=== PATIENT | female | born 1940 | race Caucasian/White ===

== ENCOUNTER 2016-09-12 10:26 | Inpatient (IN) | payer MEDICARE, BC ==
[2016-09-12] MEDS ORDERED: Ketorolac INJ* 30 MG/ML 1 ML VIAL IV ONE (11:38)
[2016-09-12] MEDS ORDERED: NS 0.9% 1000 ML* 1,000 ML IV SCH ×2 (11:45→15:00)
[2016-09-12 11:47] LABS: Hematocrit 42 % (35-47); Hemoglobin 14.1 g/dl (12.0-16.0); Mean Corpuscular HGB Conc 34 g/dl (31-36); Mean Corpuscular Hemoglobin 31 pg (27-31); Mean Corpuscular Volume 92 fL (80-97); Mean Platelet Volume 8 um3 (7.4-10.4); Red Blood Count 4.55 10^6/ul (4.0-5.4); Red Cell Distribution Width 14 % (10.5-15); White Blood Count 7.4 10^3/ul (3.5-10.8)
[2016-09-12 11:58] LABS: ALT 7 U/L (7-52); Albumin 4.2 g/dL (3.2-5.2); Alkaline Phosphatase 44 U/L (34-104); Blood Urea Nitrogen 24 mg/dL (6-24); C Reactive Protein 2.53 mg/L (< 5.00); CO2 Carbon Dioxide 24 mmol/L (22-32); Calcium 9.5 mg/dL (8.6-10.3); Chloride 97 mmol/L (101-111); Creatine Kinase 62 U/L (10-223); EGFR African American 49.8 (>60); EGFR Non-African American 38.7 (>60); Globulin 2.9 g/dL (2-4); Glucose 151 mg/dL (70-100); Lipase 24 U/L (11.0-82.0); Sodium 132 mmol/L (133-145); Total Protein 7.1 g/dL (6.4-8.9)
[2016-09-12 12:00] LABS: Troponin I 0.01 ng/mL (<0.04)
[2016-09-12 12:07] LABS: TSH (Thyroid Stimulating Horm) 7.12 mcIU/mL (0.34-5.60)
--- NOTE | 2016-09-12 12:49 | RAD ---
Indication: LEFT hip pain post fall. Preserved range of motion. Comparison: June 15, 2016 Technique: AP pelvis and AP and frog-leg lateral views LEFT hip. Report: Normally located LEFT hip with preserved joint space. No radiographic evidence for LEFT hip or pelvic fracture or pelvic joint diastases. Unremarkable soft tissue contours accounting for body habitus. IMPRESSION: No radiographic evidence for hip fracture. As x-rays may be negative with nondisplaced hip fracture if there is persistent clinical concern MRI or in setting of contraindication to MRI or limitation in emergent access to MRI CT would be suggested.
--- NOTE | 2016-09-12 12:53 | RAD ---
HISTORY: Pain status post trauma, right hand and wrist COMPARISONS: September 12, 2016 VIEWS: 2, Frontal and lateral views of the right hand FINDINGS: BONE DENSITY: There is diffuse osteopenia. BONES: The patient is status post internal fixation of the distal radius. There is no acute displaced fracture or dislocation. JOINTS: There is no arthropathy. ALIGNMENT: There is no dislocation. SOFT TISSUES: Unremarkable. OTHER FINDINGS: None. IMPRESSION: 1. OSTEOPENIA. 2. POST SURGICAL CHANGE. 3. NO ACUTE OSSEOUS INJURY. THE DEGREE OF OSTEOPENIA MAY MAKE A NONDISPLACED FRACTURE RADIOGRAPHICALLY OCCULT. IF SYMPTOMS PERSIST, RECOMMEND REPEAT IMAGING.
--- NOTE | 2016-09-12 13:00 | RAD ---
INDICATION: Wrist injury COMPARISON: Right wrist October 15, 2015 TECHNIQUE: AP and lateral views were obtained. FINDINGS: There is osteopenia with prior open reduction and internal fixation of a distal radial fracture. There are no acute bony findings. There is mild diffuse soft tissue swelling IMPRESSION: POSTOPERATIVE CHANGES. NO ACUTE FINDINGS.
--- NOTE | 2016-09-12 13:57 | RAD ---
HISTORY: Fall COMPARISONS: June 15, 2016 TECHNIQUE: Multiple contiguous axial CT scans were obtained of the head without intravenous contrast. FINDINGS: HEMORRHAGE/INFARCT: There is no hemorrhage or acute infarct. MASSES/SHIFT: There is no mass or shift. EXTRA-AXIAL SPACES: There are no extra-axial fluid collections. SULCI AND VENTRICLES: The sulci and ventricles are normal in size and position for the patient's stated age. CEREBRUM: There are no focal parenchymal abnormalities. BRAINSTEM: There are no focal parenchymal abnormalities. CEREBELLUM: There are no focal parenchymal abnormalities. VESSELS: The vessels are grossly normal. PARANASAL SINUSES: The paranasal sinuses are clear. ORBITS: The orbits are unremarkable. BONES AND SOFT TISSUE: No bone or soft tissue abnormalities are noted. OTHER: None IMPRESSION: NO ACUTE INTRACRANIAL PATHOLOGY.
--- NOTE | 2016-09-12 13:59 | RAD ---
HISTORY: Fall COMPARISONS: None TECHNIQUE: Multiple contiguous axial CT scans were obtained of the cervical spine without intravenous contrast, with coronal and sagittal multiplanar reformations. FINDINGS: BRAIN: The visualized brain is unremarkable CENTRAL CANAL: Evaluation of the central canal is limited on CT technique; however, there is no obvious canalicular mass or epidural hemorrhage. ALIGNMENT: The alignment is normal, without subluxation or dislocation. VERTEBRAL BODIES: The odontoid process is intact. The atlantoaxial intervals are symmetric. The vertebral bodies are normal in attenuation, without fracture. There is diffuse osteopenia. JOINTS: There is fusion across the facet joints of C2-C3. There is mild facet osteoarthritis. MUSCULATURE: Unremarkable INTERVERTEBRAL DISCS: There is diffuse loss of intervertebral disc height. AXIAL IMAGES: C2-C3: There is no osseous neural foraminal narrowing or central canal stenosis. C3-C4: There is no osseous neural foraminal narrowing or central canal stenosis. C4-C5: There is no osseous neural foraminal narrowing or central canal stenosis. C5-C6: There is no osseous neural foraminal narrowing or central canal stenosis. C6-C7: There is no osseous neural foraminal narrowing or central canal stenosis. C7-T1: There is no osseous neural foraminal narrowing or central canal stenosis. SOFT TISSUES: The visualized soft tissues of the neck are unremarkable. The prevertebral fat stripe is preserved. OTHER: None. IMPRESSION: 1. OSTEOPENIA. 2. MILD DEGENERATIVE CHANGES. 3. NO ACUTE OSSEOUS INJURY TO THE CERVICAL SPINE
[2016-09-12 14:10] LABS: Magnesium 1.8 mg/dL (1.9-2.7)
--- NOTE | 2016-09-12 14:10 | RAD ---
INDICATION: Trauma. COMPARISON: Comparison is made with a prior chest x-ray study from June 15, 2016. TECHNIQUE: A CT scan of the chest was performed without intravenous contrast. Contiguous axial sections were obtained from the lung apices through the lung bases. Images were reconstructed in the coronal and sagittal planes. FINDINGS: There is mild dependent bilateral lower lobe subsegmental atelectasis. No pleural effusion or pneumothorax is seen. There is no mediastinal hemorrhage. No significant enlargement of central or hilar lymph nodes are seen. The heart is within normal limits in size. No pericardial effusion is present. The thoracic aorta is normal in caliber. There is mild to moderate calcific plaque present. There is a slightly impacted fracture of the anterior cortex of the body of the sternum. No adjacent soft tissue swelling is seen and this would be age indeterminate. No other fractures are seen. The patient is status post right shoulder arthroplasty. IMPRESSION: FRACTURE OF THE BODY OF THE STERNUM, AGE INDETERMINATE. RECOMMEND CLINICAL CORRELATION.
[2016-09-12] MEDS ORDERED: Ondansetron INJ* 2 MG/ML VIAL IV PRN (14:48)
[2016-09-12] MEDS ORDERED: traMADol TAB* 50 MG PO PRN (14:49)
[2016-09-12] MEDS ORDERED: Magnesium Sulfate 2 GM IV* 2 GM/50 ML BAG IVPB ONE (15:02)
[2016-09-12] MEDS ORDERED: Potassium Chlor TAB* 20 MEQ TAB.ER PO ONE (15:02)
[2016-09-12] MEDS: Carbidopa/Levodop 25/100 MG TAB(*) PO SCH ×3 (15:10→20:04)
[2016-09-12 15:39] LABS: T4 8.53 g/dL (6.09-12.23)
[2016-09-12 15:44] LABS: Free T4 0.95 ng/dL (0.61-1.12)
[2016-09-12 15:48] LABS: Urine Bacteria 1+ (Absent); Urine Bilirubin Negative (Negative); Urine Glucose Negative (Negative); Urine Nitrite Negative (Negative)
[2016-09-12 15:49] LABS: Total T3 0.93 ng/mL (0.87-1.78)
--- NOTE | 2016-09-12 16:02 | ED ---
Maci Kohler Anna, scribed for Rainer Stanley MD on 09/12/16 at 1109 . Adult Trauma - HPI Summary HPI Summary: Patient is a 76 y/o female coming to [facility] after a fall that occurred this morning. She got up following a BM and felt like she would pass out. She fell down and might have hit her chest on the walker. She hit her right hand on a knob of the counter. She had a momentary LOC. She did not feel palpitations, CP , SOB before the syncope. She currently feels CP and right hand pain. She has some hip pain. She feels bloated, which is at baseline for her. She has some difficulty lifting her feet. Per triage notes, the patient describes the severity of the symptoms as 4/10. She has been taking medication for her BM. She previous had melena but her BM have been normally-colored the last few days. She took two Tylenol this morning. Hx significant for Parkinsons disease. - History of Current Complaint Chief Complaint: EDSyncope Stated Complaint: FALL Time Seen by Provider: 09/12/16 10:32 Hx Obtained From: Patient, Family/Mapping Editor - accompanied by , who witnessed fall Loss of Consciousness: brief (seconds) Pain Intensity: 4 Pain Scale Used: 0-10 Numeric - Allergy/Home Medications Allergies/Adverse Reactions: Allergies Allergy/AdvReac Type Severity Reaction Status Date / Time Ciprofloxacin [From Cipro] Allergy Intermediate RASH/HIVES Verified 02/10/16 13: 38 Erythromycin Allergy Intermediate GI Upset Verified 02/10/16 13:38 Povidone Iodine Allergy Intermediate Rash Verified 02/10/16 13:38 [From Betadine] Rabeprazole [From Aciphex] Allergy Intermediate MIGRAINE Verified 02/10/16 13:38 Acetaminophen [From Vicodin] Allergy Mild Rash Verified 02/10/16 13:38 Doxycycline Allergy Mild Rash Verified 02/10/16 13:38 Hydrocodone [From Vicodin] Allergy Mild Rash Verified 02/10/16 13:38 Iodinated Contrast Media Allergy Mild Hives Verified 02/10/16 13:38 [CONTRAST DYE] Lansoprazole [From Prevacid] Allergy Mild SKIN Verified 02/10/16 13:38 IRRITATION Levofloxacin [From Levaquin] Allergy Mild Rash Verified 02/10/16 13:38 Rofecoxib [From Vioxx] Allergy Mild SKIN Verified 02/10/16 13:38 IRRITATION Sulfa Drugs Allergy Unknown Unknown Verified 02/10/16 13:38 Reaction Details Loracarbef Allergy See Comment Verified 09/12/16 15:18 PMH/Surg Hx/FS Hx/Imm Hx Endocrine/Hematology History: Reports: Hx Anticoagulant Therapy Denies: Hx Diabetes Cardiovascular History: Reports: Hx Hypertension Denies: Hx Pacemaker/ICD Respiratory History: Denies: Hx Asthma, Hx Chronic Obstructive Pulmonary Disease (COPD) GI History: Reports: Hx Irritable Bowel - Hx Chronic Diarrhea Musculoskeletal History: Reports: Hx Back Problems, Hx Orthopedic Injury, Other Musculoskeletal History - R Shoulder Repair Denies: Hx Rheumatoid Arthritis, Hx Osteoporosis Sensory History: Denies: Hx Hearing Aid Neurological History: Reports: Hx Headaches, Other Neuro Impairments/Disorders - Parkinson's Disease Psychiatric History: Denies: Hx Panic Disorder - Cancer History Hx Chemotherapy: No Hx Radiation Therapy: No - Surgical History Surgery Procedure, Year, and Place: rt shoulder prosthesis-2008, RT AND LT BREAST BX, HYSTERECTOMY, [place], RT [place] [facility] ORTHOPLASTY SHOULDER, SHOULDER MANIPULATION,ORIF RT WRIST WITH PLATING Infectious Disease History: Denies: Traveled Outside the [place] in Last 30 Days - Family History Known Family History: Positive: Hypertension - Social History Occupation: Retired Lives: With Family Alcohol Use: None Hx Substance Use: Yes Substance Use Type: Reports: None, Prescribed Hx Tobacco Use: No Smoking Status (MU): Never Smoked Tobacco Review of Systems Positive: Chest Pain Positive: Other - Bloated, baseline Positive: other - melena, resolved Positive: Arthralgia Positive: Syncope All Other Systems Reviewed And Are Negative: Yes Physical Exam Triage Information Reviewed: Yes Vital Signs On Initial Exam: Initial Vitals Temp Pulse Resp BP Pulse Ox 96.7 F 84 18 140/83 99 09/12/16 10:27 09/12/16 10:27 09/12/16 10:27 09/12/16 10:27 09/12/16 10:27 Vital Signs Reviewed: Yes Appearance: Positive: Well-Appearing, No Pain Distress Skin: Positive: Warm, Skin Color Reflects Adequate Perfusion, Dry, Other - Ecchymosison R upper sternal area Head/Face: Positive: Normal Head/Face Inspection Eyes: Positive: EOMI, GABY ENT: Positive: Normal ENT inspection Neck: Positive: Supple, Nontender Respiratory/Lung Sounds: Positive: Clear to Auscultation, Breath Sounds Present Cardiovascular: Positive: RRR Abdomen Description: Positive: Nontender, Soft Bowel Sounds: Positive: Present Musculoskeletal: Positive: Pain @ - R Hand bandaged, tender in wrist and hand, Other - Good ROM right leg. Left leg slightly decreased ROM. Neurological: Positive: Alert, Oriented to Person Place, Time, Other - slow speech, slow movement of arms and legs Psychiatric: Positive: Affect/Mood Appropriate Diagnostics - Vital Signs Vital Signs Temp Pulse Resp BP Pulse Ox 09/12/16 10:48 96.7 F 83 18 121/78 98 09/12/16 10:41 83 18 150/82 99 09/12/16 10:27 96.7 F 84 18 140/83 99 - Laboratory Lab Results: Lab Results 09/12/16 09/12/16 09/12/16 Range/Units 10:35 10:35 10:35 WBC 7.4 (3.5-10.8) 10^3/ul RBC 4.55 (4.0-5.4) 10^6/ul Hgb 14.1 (12.0-16.0) g/dl Hct 42 (35-47) % MCV 92 (80-97) fL MCH 31 (27-31) pg MCHC 34 (31-36) g/dl RDW 14 (10.5-15) % Plt Count 161 (150-450) 10^3/ul MPV 8 (7.4-10.4) um3 Neut % (Auto) 76.4 (38-83) % Lymph % (Auto) 16.0 L (25-47) % [place] % (Auto) 5.6 (1-9) % Eos % (Auto) 1.4 (0-6) % Baso % (Auto) 0.6 (0-2) % Absolute Neuts (auto) 5.6 (1.5-7.7) 10^3/ul Absolute Lymphs (auto) 1.2 (1.0-4.8) 10^3/ul Absolute Monos (auto) 0.4 (0-0.8) 10^3/ul Absolute Eos (auto) 0.1 (0-0.6) 10^3/ul Absolute Basos (auto) 0 (0-0.2) 10^3/ul Absolute Nucleated RBC 0 10^3/ul Nucleated RBC % 0 INR (Anticoag Therapy) 0.90 (0.89-1.11) APTT 26.1 (26.0-36.3) seconds Sodium 132 L (133-145) mmol/L Potassium TNP Chloride 97 L (101-111) mmol/L Carbon Dioxide 24 (22-32) mmol/L Anion Gap TNP BUN 24 (6-24) mg/dL Creatinine 1.33 H (0.51-0.95) mg/dL Est GFR ( Amer) 49.8 (>60) Est GFR (Non-Af Amer) 38.7 (>60) BUN/Creatinine Ratio 18.0 (8-20) Glucose 151 H (70-100) mg/dL Lactic Acid (0.5-2.0) mmol/L Calcium 9.5 (8.6-10.3) mg/dL Magnesium TNP Total Bilirubin 0.90 (0.2-1.0) mg/dL AST TNP ALT 7 (7-52) U/L Alkaline Phosphatase 44 (34-104) U/L Total Creatine Kinase 62 (10-223) U/L CK-MB (CK-2) 2.4 (0.6-6.3) ng/mL Troponin I 0.01 (<0.04) ng/mL C-Reactive Protein 2.53 (< 5.00) mg/L B-Natriuretic Peptide ( - 100) pg/mL Total Protein 7.1 (6.4-8.9) g/dL Albumin 4.2 (3.2-5.2) g/dL Globulin 2.9 (2-4) g/dL Albumin/Globulin Ratio 1.4 (1-3) Lipase 24 (11.0-82.0) U/L TSH 7.12 H (0.34-5.60) mcIU/mL Free T4 0.95 (0.61-1.12) ng/dL Thyroxine (T4) 8.53 (6.09-12.23) g/dL Free T3 3.10 (2.5-3.9) pg/mL Total T3 0.93 (0.87-1.78) ng/mL 09/12/16 09/12/16 09/12/16 Range/Units 10:35 10:35 13:48 WBC (3.5-10.8) 10^3/ul RBC (4.0-5.4) 10^6/ul Hgb (12.0-16.0) g/dl Hct (35-47) % MCV (80-97) fL MCH (27-31) pg MCHC (31-36) g/dl RDW (10.5-15) % Plt Count (150-450) 10^3/ul MPV (7.4-10.4) um3 Neut % (Auto) (38-83) % Lymph % (Auto) (25-47) % [place] % (Auto) (1-9) % Eos % (Auto) (0-6) % Baso % (Auto) (0-2) % Absolute Neuts (auto) (1.5-7.7) 10^3/ul Absolute Lymphs (auto) (1.0-4.8) 10^3/ul Absolute Monos (auto) (0-0.8) 10^3/ul Absolute Eos (auto) (0-0.6) 10^3/ul Absolute Basos (auto) (0-0.2) 10^3/ul Absolute Nucleated RBC 10^3/ul Nucleated RBC % INR (Anticoag Therapy) (0.89-1.11) APTT (26.0-36.3) seconds Sodium (133-145) mmol/L Potassium 3.0 L Chloride (101-111) mmol/L Carbon Dioxide (22-32) mmol/L Anion Gap BUN (6-24) mg/dL Creatinine (0.51-0.95) mg/dL Est GFR ( Amer) (>60) Est GFR (Non-Af Amer) (>60) BUN/Creatinine Ratio (8-20) Glucose (70-100) mg/dL Lactic Acid 3.6 H* (0.5-2.0) mmol/L Calcium (8.6-10.3) mg/dL Magnesium 1.8 L Total Bilirubin (0.2-1.0) mg/dL AST 16 ALT (7-52) U/L Alkaline Phosphatase (34-104) U/L Total Creatine Kinase (10-223) U/L CK-MB (CK-2) (0.6-6.3) ng/mL Troponin I (<0.04) ng/mL C-Reactive Protein (< 5.00) mg/L B-Natriuretic Peptide 40 ( - 100) pg/mL Total Protein (6.4-8.9) g/dL Albumin (3.2-5.2) g/dL Globulin (2-4) g/dL Albumin/Globulin Ratio (1-3) Lipase (11.0-82.0) U/L TSH (0.34-5.60) mcIU/mL Free T4 (0.61-1.12) ng/dL Thyroxine (T4) (6.09-12.23) g/dL Free T3 (2.5-3.9) pg/mL Total T3 (0.87-1.78) ng/mL Result Diagrams: 09/12/16 10:35 09/12/16 13:48 Lab Statement: Any lab studies that have been ordered have been reviewed, and results considered in the medical decision making process. - Radiology Wrist XR Xray Interpretation: No Acute Changes Radiology Interpretation Completed By: Radiologist - IMPRESSION: POSTOPERATIVE CHANGES. NO ACUTE FINDINGS. Hip/Pelvis XR Xray Interpretation: No Acute Changes Radiology Interpretation Completed By: Radiologist - IMPRESSION: No radiographic evidence for hip fracture. As x-rays may be negative with nondisplaced hip fracture if there is persistent clinical concern MRI or in setting of contraindication to MRI or limitation in emergent access to MRI CT would be suggested. Hand XR Xray Interpretation: No Acute Changes Radiology Interpretation Completed By: Radiologist - IMPRESSION: 1. OSTEOPENIA. 2. POST SURGICAL CHANGE. 3. NO ACUTE OSSEOUS INJURY. THE DEGREE OF OSTEOPENIA MAY MAKE A NONDISPLACED FRACTURE RADIOGRAPHICALLY OCCULT. IF SYMPTOMS PERSIST, RECOMMEND REPEAT IMAGING. - CT Brain CT CT Interpretation: No Acute Changes CT Interpretation Completed By: Radiologist C-Spine CT CT Interpretation: No Acute Changes CT Interpretation Completed By: Radiologist - IMPRESSION: 1. OSTEOPENIA. 2. MILD DEGENERATIVE CHANGES. 3. NO ACUTE OSSEOUS INJURY TO THE CERVICAL SPINE Chest CT CT Interpretation: Positive (See Comments) CT Interpretation Completed By: Radiologist - IMPRESSION: FRACTURE OF THE BODY OF THE STERNUM, AGE INDETERMINATE. RECOMMEND CLINICAL CORRELATION. - EKG 1049 Cardiac Rate: NL - [address] Segment: Normal Ectopy: None Adult Trauma Course/Dx - Course Assessment/Plan: DISCUSSED RESULTS WITH PATIENT/FAMILY. ADMIT HOSPITALIST STABLE. - Diagnoses Provider Diagnoses: SYNCOPE, Sternal fracture - Physician Notifications Discussed Care Of Patient With: Dr. Guardado (hospitalist) at 13:37. Agrees to admit patient. Discharge - Discharge Plan Condition: Guarded Disposition: ADMITTED TO [facility] documentation as recorded by the Maci norton Anna accurately reflects the service I personally performed and the decisions made by me, Rainer Stanley MD.
--- NOTE | 2016-09-12 18:21 | HP ---
HISTORY AND PHYSICAL: DATE OF ADMISSION: 09/12/16 PRIMARY CARE PROVIDER: Dr. Parra. ATTENDING PHYSICIAN WHILE IN THE HOSPITAL: Dr. Sandy Guardado *(report dictated by Mike Bonilla NP). CHIEF COMPLAINT: 1. Syncope. 2. Fall. HISTORY OF PRESENTING ILLNESS: Ms. Omer is a 76-year-old female patient. She has a history of Parkinson's, hypothyroidism, hyperlipidemia, and arthritis. She comes in to the ER today stating that she was recently dealing with bouts of constipation. She was started on a laxative. She is unaware of the name of it. She started having bowel movements and then actually started having almost liquid bowel movement. She stopped the constipation medication. Her bowel movements were becoming more regular. She was sitting on the commode today. She had a bowel movement. She needed to be wiped up by her as she had difficulty doing this with her Parkinson's. As she was standing, after having bowel movement, she noticed she started becoming lightheaded, feeling she was going to pass out. The next thing she knew, she woke up and she was on the bathroom floor. She denies any chest pain prior, but she does admit to having some pain in her chest afterwards. She states it gets worse when she takes a breath and describes it as a sharp, stabbing pain. She denies having any shortness of breath. She denied any recent change in medication with the exception that she has been on a new constipation medication. She denies having any fevers or chills. She states she has passed out once before in the past. Her was concerned and she is unaware how long she was on the ground for, but there was concern because of the syncope and the patient was sent to the ER via EMS and we were asked to evaluate for admission. PAST MEDICAL HISTORY: Significant for: 1. Parkinson's. 2. Hypothyroidism. 3. Arthritis. 4. Hyperlipidemia. PAST SURGICAL HISTORY: 1. The patient has had shoulder surgery. 2. Hysterectomy. 3. Cholecystectomy. 4. Breast biopsies. HOME MEDICATIONS: Include: 1. Tramadol 50 mg every 4 to 6 hours as needed. 2. Zantac 150 mg p.o. twice a day. 3. Systane eye drops, 1 drop both eyes t.i.d. as needed. 4. Nystatin cream 1 application topically b.i.d. 5. Lozol 2.5 mg p.o. daily. 6. Hydrocortisone 1 application topically b.i.d. 7. Glycerin suppository, 1 suppository every 12 hours as needed. 8. Colace 100 mg daily. 9. Cranberry 500 mg p.o. daily with meals. 10. Cod liver oil 1 capsule p.o. daily. 11. Carbidopa/levodopa 2 tablets in the morning. 12. Carbidopa/levodopa 1-1/2 tablets at noon, 1600, and 2000. 13. Calcium carbonate 1 tablet p.o. daily. 14. Betamethasone 1 application topically b.i.d. as needed. 15. Tylenol 650 mg p.o. every 4 hours as needed. ALLERGIES TO MEDICATIONS: Include CIPROFLOXACIN, ERYTHROMYCIN, IODINE, ACIPHEX , VICODIN, DOXYCYCLINE, IV DYE, PREVACID, LEVAQUIN, VIOXX, SULFA DRUGS, and LORABID. FAMILY HISTORY: Reviewed and noncontributory. SOCIAL HISTORY: She does not smoke. She does not drink. She lives with her . Surrogate decision maker is her , Layo. REVIEW OF SYSTEMS: There is no documented fever. She denied having any significant weight change. There was no double vision. There is no ear discharge. There is no rhinorrhea. No sore throat. No thyroid enlargement. She denied having any chest pain. There is no orthopnea, no nocturnal dyspnea. There is no abdominal pain. No nausea, no vomiting. No dysuria, no frequency. There was loss of consciousness. No pruritus, no skin ulcerations. Review of 14 systems completed, all others negative. PHYSICAL EXAMINATION GENERAL: At this time, Ms. Omer is a 76-year-old female patient. She appears well nourished, well developed. She does not appear to be in any acute distress. She is sitting in the ER stretcher. VITAL SIGNS: Blood pressure 140/66 with a pulse of 83, respirations 18, O2 sat 96%, and temperature of 96.7. HEENT: Head: Atraumatic and normocephalic. Eyes: EOMs are intact. Sclerae are anicteric and not pale. Throat: Oral mucosa appears to be moist. No oropharyngeal erythema. NECK: Supple. LUNGS: Clear to auscultation bilaterally. No wheezes, rales, or rhonchi. HEART: Sounds S1, S2. Regular rate and rhythm. No murmurs, rubs, or gallops. ABDOMEN: Soft, flat, and nontender. Bowel sounds present. EXTREMITIES: Pulses 2+ throughout. She does have rigidity in the lower extremities. She is able to move the 4 extremities. She has weakness in the lower extremities bilaterally. No peripheral edema. NEUROLOGIC: She is awake, alert, and oriented x3. No gross focal deficits. SKIN: Intact. She does have a rather large skin tear to the right hand which is covered with a Telfa dressing. May have Dr. Stanley look at it to see if it could be sutured, but may not be because her skin is fairly frail and the sutures may not hold. DIAGNOSTIC STUDIES/LAB DATA: Today revealed a WBC of 7.4, RBC of 4.55, hemoglobin 14.1, hematocrit of 42, platelet count of 151. INR was 0.90, PTT of 26.1. Sodium was 132, potassium 3.0, chloride of 97, bicarb 24, glucose is 151 , lactate 3.6, calcium 9.5, mag 1.8. Total bili 0.9, AST 16, ALT 7, alk phos 44. CK 52, CK-MB 2.4. Troponin 0.01. TSH 7.12. Lipase 24. Albumin of 4.2. BNP of 40. Urine is pending. She had multiple imaging in the ER. She had a CT of the brain which showed no acute intracranial pathology. She had a hand, right, 2 views, which showed osteopenia and postsurgical change. No acute osseous injury. Osteopenia may make a nondisplaced fracture radiographically occult. If symptoms persist, recommend repeat imaging. CT cervical spine showed osteopenia, mild degenerative changes. No acute osseous injury of the cervical spine. She had a chest CT which showed fracture of the body of the sternum, age indeterminate. Recommend clinical correlation. She had a hip pelvis x-ray which showed no radiographic evidence for hip fracture. X-rays may be negative with nondisplaced fracture. If symptoms persist, then consider MRI in the setting of MRI or limitation, in emergent process, CT will be suggested. Wrist x-ray showed postoperative change, no acute findings. Old medical records were reviewed. She also had an EKG obtained today which showed no obvious ST elevation or T- wave inversions. Difficult exam because she has multiple artifacts with rate of 81 and was a sinus rhythm. Old medical records were reviewed. ASSESSMENT AND PLAN: Ms. Omer is a 76-year-old female coming in to the ER today with complaints of syncopal episode. Hospitalist service was asked to evaluate in admission. She will be admitted under observation status for: 1. Syncope: I suspect the reason she syncopized at this point is probably because of vasovagal and orthostasis. She is on a medication, Lozol, which I am going to hold as is a mild diuretic. We will hydrate her. We will check orthostatic blood pressures. We will get an echo. We will place her on telemetry and we will continue to follow. 2. Parkinson's: Continue meds as prescribed. 3. Hypothyroidism: Her TSH was slightly high. I will add on a T3 and T4. May need to consider adding back small dose of Synthroid, but this can be followed with her primary. 4. Arthritis: Continue supportive care. 5. Hyperlipidemia: She can follow with her primary. 6. DVT prophylaxis: We will go ahead and place her on heparin subcu. 7. Code status: Full code. 8. Fluids, electrolytes, and nutrition: She can have a regular diet. 9. Falls: We will go ahead and get a PT consult which has been ordered. 10. Hypomagnesemia: We will go ahead and replace this. 11. Hypokalemia: We will go ahead and replace this. 12. Lactic acidosis: The etiology is unclear. I will repeat this after hydration. I do not believe she had a seizure. I do not think she is actively infected either. We will monitor for any fevers. TIME SPENT: On the admission was 30 minutes; greater than half the time was spent [id number] with the patient obtaining my history and physical, other half the time spent going over the plan of care with the patient and implementing plan of care. I did discuss the plan of care with my attending, Dr. Guardado; she is in agreement. MIKE BONILLA NP CC: Dr. Parra* [id number]/[facility] #: [id number] [facility]
[2016-09-12] MEDS: Neomycin/Polym/Bacit TOP OINT* 15 GM TOPICAL SCH (21:11)
[2016-09-12] MEDS: Nystatin CREAM* 15 GM TUBE TOPICAL SCH (21:14)
[2016-09-12] MEDS: Heparin VIAL(*) 5000 UNITS/ML VIAL (FIVE THOUSAND) SUBCUT SCH (21:19)
[2016-09-13] MEDS: Heparin VIAL(*) 5000 UNITS/ML VIAL (FIVE THOUSAND) SUBCUT SCH ×3 (05:07→21:17)
[2016-09-13 05:31] LABS: Hematocrit 35 % (35-47); Mean Corpuscular HGB Conc 35 g/dl (31-36); Mean Corpuscular Hemoglobin 32 pg (27-31); Mean Corpuscular Volume 92 fL (80-97); Mean Platelet Volume 8 um3 (7.4-10.4); Red Blood Count 3.77 10^6/ul (4.0-5.4); Red Cell Distribution Width 14 % (10.5-15); White Blood Count 6.9 10^3/ul (3.5-10.8)
[2016-09-13 05:47] LABS: BUN/Creatinine Ratio 18.9 (8-20); Calcium 8.6 mg/dL (8.6-10.3); EGFR African American 61.3 (>60); EGFR Non-African American 47.7 (>60)
[2016-09-13] MEDS: Famotidine TAB* 20 MG PO SCH (08:58)
[2016-09-13] MEDS: Carbidopa/Levodop 25/100 MG TAB(*) PO SCH ×4 (08:58→19:28)
[2016-09-13] MEDS: Neomycin/Polym/Bacit TOP OINT* 15 GM TOPICAL SCH ×3 (12:22→19:42)
[2016-09-13] MEDS: Nystatin CREAM* 15 GM TUBE TOPICAL SCH ×2 (12:31→19:42)
[2016-09-13] MEDS ORDERED: Simethicone TAB* 80 MG TAB.CHEW PO PRN (12:31)
[2016-09-13] MEDS: Acetaminophen TAB* 325 MG PO PRN (12:31)
[2016-09-13] MEDS: Potassium Chlor TAB* 20 MEQ TAB.ER PO SCH ×2 (12:31→13:40)
--- NOTE | 2016-09-13 15:11 | PN ---
Subjective Date of Service: 09/13/16 Interval History: Patient seen this morning. Says she continues to have chest pain, worse with movement and inspiration. Feels to weak to go home. No further episodes of dizziness. Family History: Unchanged from Admission Social History: Unchanged from Admission Past Medical History: Unchanged from Admission Objective Active Medications: Acetaminophen (Tylenol Tab*) 650 mg PO Q4H PRN Carbidopa/Levodopa (Sinemet 25/100 Tab(*)) 1.5 tab PO 1200,1600,2000 GILMAR Carbidopa/Levodopa (Sinemet 25/100 Tab(*)) 2 tab PO 0800 [facility] Famotidine (Pepcid Tab*) 20 mg PO DAILY G[facility]MAR Heparin Sodium (Porcine) (Heparin Vial(*)) 5,000 units SUBCUT Q8HR G[facility] Ibuprofen (Motrin Tab*) 600 mg PO Q6H PRN Neomycin/Polymyxin/Bacitracin (Neosporin Top Oint Tube*) 1 applic TOPICAL BID GILMAR Nystatin (Nystatin Cream*) 1 applic TOPICAL BID GILMAR Ondansetron HCl (Zofran Inj*) 4 mg IV Q6H PRN Simethicone (Mylicon*) 80 mg PO Q6H PRN Vital Signs 09/12/16 09/12/16 09/12/16 15:27 16:14 19:40 Temperature 97.2 F 97.7 F Pulse Rate 96 91 Respiratory 16 16 16 Rate Blood Pressure 159/52 124/51 (mmHg) O2 Sat by Pulse 98 100 Oximetry 09/12/16 09/12/16 09/12/16 20:04 20:06 22:04 Temperature Pulse Rate 99 106 Respiratory 18 16 Rate Blood Pressure 127/56 95/72 (mmHg) O2 Sat by Pulse 99 98 Oximetry 09/13/16 09/13/16 07:58 11:03 Temperature 98.3 F 98.6 F Pulse Rate 82 80 Respiratory 16 16 Rate Blood Pressure 138/62 126/53 (mmHg) O2 Sat by Pulse 94 94 Oximetry Oxygen Devices in Use Now: None Appearance: Elderly, F, laying in bed in NAD Eyes: No Scleral Icterus Ears/Nose/Mouth/Throat: Mucous Membranes Moist Neck: NL Appearance and Movements; NL JVP Respiratory: Symmetrical Chest Expansion and Respiratory Effort, Clear to Auscultation Cardiovascular: NL Sounds; No Murmurs; No JVD, RRR, - - sternum TTP Abdominal: NL Sounds; No Tenderness; No Distention Lymphatic: No Cervical Adenopathy Extremities: - - Mild LE edema B/L Skin: No Rash or Ulcers Neurological: Alert and Oriented x 3, - - tremor noted Result Diagrams: 09/13/16 05:20 09/13/16 05:20 Additional Lab and Data: Assess/Plan/Problems-Billing Assessment: Syncope likely due to diarrhea/dehydration, orthostatic hypotension in a 76 yo F with hx of Parkinson's, hypothyroidism, arthritis, HLD - Patient Problems (1) Syncope Current Visit: Yes Comment: 2/2 diarrhea/dehydration from laxatives. Had positive orthostatics here. Labs improved with IVF. No events on tele (2) Weakness Current Visit: Yes Comment: pain due to sternal fracture (age indeterminate), may have been from previous fall. Will continue tylenol and ibuprofen. Patient thinks she had bad reaction to tramadol so have discontinued this. (3) Hypothyroid Current Visit: No Comment: Mildly elevated TSH, normal FT4. Not on home synthroid. Can repeat labs as outpatient. (4) Parkinson disease Current Visit: No Comment: Continue home Sinemet (5) DVT prophylaxis Current Visit: Yes Comment: HSQ Status and Disposition: Inpatient due to persistent weakness.
[2016-09-13] MEDS: Ibuprofen TAB* 600 MG PO PRN (16:32)
[2016-09-14] MEDS: Heparin VIAL(*) 5000 UNITS/ML VIAL (FIVE THOUSAND) SUBCUT SCH ×3 (05:14→23:06)
[2016-09-14 06:34] LABS: BUN/Creatinine Ratio 19.4 (8-20); Calcium 8.9 mg/dL (8.6-10.3); EGFR African American 63.3 (>60); EGFR Non-African American 49.2 (>60); Potassium 3.9 mmol/L (3.5-5.0)
[2016-09-14] MEDS: Carbidopa/Levodop 25/100 MG TAB(*) PO SCH ×4 (09:03→21:06)
[2016-09-14] MEDS: Famotidine TAB* 20 MG PO SCH (09:03)
[2016-09-14] MEDS: Nystatin CREAM* 15 GM TUBE TOPICAL SCH ×2 (10:18→21:30)
[2016-09-14] MEDS: Neomycin/Polym/Bacit TOP OINT* 15 GM TOPICAL SCH ×2 (10:19→23:26)
[2016-09-14] MEDS: Ibuprofen TAB* 600 MG PO PRN (10:19)
[2016-09-14] MEDS: Acetaminophen TAB* 325 MG PO PRN (12:29)
--- NOTE | 2016-09-14 12:31 | PN ---
Subjective Date of Service: 09/14/16 Interval History: Patient seen this afternoon. Reports continued chest pain with movement, ibuprofen has been somewhat helpful. Anxious when she walks that she will fall again. Required 2 assist and gait belts to get to the bathroom. No dizziness when walking. Discussed possibility of JESÚS which the patient was no happy about. Family History: Unchanged from Admission Social History: Unchanged from Admission Past Medical History: Unchanged from Admission Objective Active Medications: Acetaminophen (Tylenol Tab*) 650 mg PO Q4H PRN Carbidopa/Levodopa (Sinemet 25/100 Tab(*)) 1.5 tab PO 1200,1600,2000 GILMAR Carbidopa/Levodopa (Sinemet 25/100 Tab(*)) 2 tab PO 0800 [facility]IL[facility] Famotidine (Pepcid Tab*) 20 mg PO DAILY GILMAR Heparin Sodium (Porcine) (Heparin Vial(*)) 5,000 units SUBCUT Q8HR GILMAR Ibuprofen (Motrin Tab*) 600 mg PO Q6H PRN Neomycin/Polymyxin/Bacitracin (Neosporin Top Oint Tube*) 1 applic TOPICAL BID GILMAR Nystatin (Nystatin Cream*) 1 applic TOPICAL BID GILMAR Ondansetron HCl (Zofran Inj*) 4 mg IV Q6H PRN Simethicone (Mylicon*) 80 mg PO Q6H PRN Vital Signs 09/13/16 09/13/16 09/13/16 15:09 15:54 18:32 Temperature 98.1 F Pulse Rate 80 Respiratory 18 18 18 Rate Blood Pressure 121/50 (mmHg) O2 Sat by Pulse 97 Oximetry 09/13/16 09/13/16 09/14/16 19:36 23:47 04:14 Temperature 98.3 F 97.8 F 97.9 F Pulse Rate 82 85 80 Respiratory 18 20 20 Rate Blood Pressure 145/54 150/59 144/74 (mmHg) O2 Sat by Pulse 96 94 94 Oximetry 09/14/16 09/14/16 09/14/16 07:16 07:32 10:56 Temperature 97.6 F Pulse Rate 80 93 Respiratory 18 16 Rate Blood Pressure 176/75 130/54 (mmHg) O2 Sat by Pulse 100 Oximetry Oxygen Devices in Use Now: None Appearance: Elderly, F, sitting in chair in NAD Eyes: No Scleral Icterus Ears/Nose/Mouth/Throat: Mucous Membranes Moist Neck: NL Appearance and Movements; NL JVP Respiratory: Symmetrical Chest Expansion and Respiratory Effort, Clear to Auscultation Cardiovascular: NL Sounds; No Murmurs; No JVD, RRR Abdominal: NL Sounds; No Tenderness; No Distention Lymphatic: No Cervical Adenopathy Extremities: No Edema Skin: No Rash or Ulcers Neurological: Alert and Oriented x 3, - - mild tremor Result Diagrams: 09/13/16 05:20 09/14/16 05:09 Additional Lab and Data: Microbiology and Other Data: Microbiology 09/12/16 15:30 Urine Culture - Final Urine Assess/Plan/Problems-Billing Assessment: Syncope likely due to diarrhea/dehydration, orthostatic hypotension in a 76 yo F with hx of Parkinson's, hypothyroidism, arthritis, HLD - Patient Problems (1) Syncope Current Visit: Yes Comment: 2/2 diarrhea/dehydration from laxatives. Had positive orthostatics here. Labs improved with IVF. No events on tele. Now off IVF. (2) Weakness Current Visit: Yes Comment: pain due to sternal fracture (age indeterminate), may have been from previous fall. Continue tylenol and ibuprofen. Patient thinks she had bad reaction to tramadol so have discontinued this. Will likely need JESÚS (3) Hypothyroid Current Visit: No Comment: Mildly elevated TSH, normal FT4. Not on home synthroid. Can repeat labs as outpatient. (4) Parkinson disease Current Visit: No Comment: Continue home Sinemet (5) DVT prophylaxis Current Visit: Yes Comment: HSQ Status and Disposition: Inpatient, will likely need JESÚS
[2016-09-15] MEDS: Ibuprofen TAB* 600 MG PO PRN (03:54)
[2016-09-15] MEDS: Heparin VIAL(*) 5000 UNITS/ML VIAL (FIVE THOUSAND) SUBCUT SCH (05:47)
[2016-09-15] MEDS: Famotidine TAB* 20 MG PO SCH (07:52)
[2016-09-15] MEDS: Carbidopa/Levodop 25/100 MG TAB(*) PO SCH (07:52)
[2016-09-15] MEDS: Neomycin/Polym/Bacit TOP OINT* 15 GM TOPICAL SCH (07:53)
[2016-09-15] MEDS: Nystatin CREAM* 15 GM TUBE TOPICAL SCH (07:53)
[2016-09-15] MEDS ORDERED: traZODone TAB* 50 MG TAB PO PRN (09:28)
[2016-09-15 10:14] VITALS: BP 145/62
[2016-09-15] MEDS ORDERED: Senna TAB PO PRN (10:35)
[2016-09-15] MEDS ORDERED: Docusate CAP* 100 MG PO PRN (10:35)
--- NOTE | 2016-09-15 10:35 | DCNOTE ---
Patient seen this morning. Still with chest pain but feels ibuprofen is helping. Feels weak still but a little steadier on her feet. Less anxious now that she knows she will be going to [facility]. On exam, RRR, s1 and s2 present, no m/g/r, lungs CTA B/L, abd soft, NTND, BS hyperactive, no LE edema. Discharge to [facility] this AM for continued PT.
--- NOTE | 2016-09-15 23:05 | DS ---
DISCHARGE SUMMARY: DATE OF ADMISSION: 09/12/16 DATE OF DISCHARGE: 09/15/16 PRIMARY CARE PHYSICIAN: Dr. Parra. PRINCIPAL DISCHARGE DIAGNOSES: 1. Syncope. 2. Dehydration. SECONDARY DIAGNOSES: 1. Parkinson's. 2. Hypothyroidism. 3. Arthritis. 4. Hyperlipidemia. STUDIES DONE DURING HOSPITALIZATION: 1. CT of the brain. Impression: No acute intracranial pathology. 2. CT of the cervical spine. Impression: Osteopenia, mild degenerative changes. No acute osseous injury to the cervical spine. 3. CT of chest. Impression: Fracture of the body of the sternum, age indeterminate. 4. Right hand x-ray. Impression: Osteopenia. Postsurgical change. No acute osseous injury. 5. Left hip x-ray and pelvis. Impression: No radiographic evidence for hip fracture. 6. Right wrist x-ray. Impression: Postoperative changes. No acute findings. DISCHARGE MEDICATION REGIMEN: 1. Tylenol 650 mg by mouth every 4 hours as needed for pain. 2. Colace 100 mg by mouth daily as needed for constipation. 3. Ibuprofen 600 mg by mouth every 6 hours as needed for pain. 4. Senna 1 tablet by mouth daily as needed for constipation. 5. Simethicone 80 mg by mouth every 6 hours as needed for gas pains. 6. Nystatin cream one application topical 2 times daily. 7. Betamethasone ointment 1 application topical 2 times daily as needed for itching. 8. Hydrocortisone cream 2.5% one application topical 2 times daily. 9. Cod liver oil 1 capsule by mouth daily. 10. Indapamide 2.5 mg by mouth daily. 11. Ranitidine 150 mg by mouth 2 times daily. 12. Cranberry 500 mg by mouth daily with meals. 13. Systane 1 drop in both eyes 3 times daily as needed for dry eyes. 14. Calcium carbonate 1 tablet by mouth daily. 15. Sinemet 25/100 two tablets at 8 a.m. and 1.5 tabs at noon, 1600, and 2000. HISTORY OF PRESENT ILLNESS AND HOSPITAL SUMMARY: Please see the History and Physical by Mike Bonilla NP, for full details. Briefly, Ms. Omer is a 76- year- old female with past medical history as above, who presented with a syncopal episode after a few days of liquid stools, on a laxative for constipation. The patient stood up after a bowel movement and became lightheaded and syncopized. Her was there but was unable to catch her. Imaging in the hospital showed a sternal fracture. It was unclear if this was related to this fall as there is no surrounding edema or bruising or could have been secondary to her previous fall. The patient also had some signs of dehydration on her initial labs with an elevated lactate and elevated creatinine , which improved with IV fluid resuscitation. Her indapamide was initially held. It can be restarted on discharge. The patient was fairly weak in the hospital, also was anxious at times. Physical Therapy recommended rehabilitation, and she was accepted in the [facility] here in the hospital. She will be transferred there and will follow up as outpatient with her PCP. TIME SPENT: Total time spent on this discharge, 35 minutes. This is a summary of the hospitalization. Please see the full medical record for further details. CC: Dr. Parra * [id number]/[facility] #: [id number] [facility]
== END 2016-09-15 11:15 | DRG 312 ==
LOC: ED 10:26 → MEDTELE 14:11 → OBSVTOIN 15:15 → MED 09-14 16:00
PROVIDERS: ADMIT Hospitalist; ATTEND Hospitalist
DX: I95.1 Orthostatic hypotension (principal); E87.2 Acidosis; G20 Parkinson's disease; E86.0 Dehydration; E03.9 Hypothyroidism, unspecified; M19.90 Unspecified osteoarthritis, unspecified site; E78.5 Hyperlipidemia, unspecified; E83.42 Hypomagnesemia; E87.6 Hypokalemia; Z79.1 Long term (current) use of non-steroidal anti-inflammatories (NSAID); Z79.899 Other long term (current) drug therapy; Z88.2 Allergy status to sulfonamides; Z88.8 Allergy status to other drugs, medicaments and biological substances; Z88.1 Allergy status to other antibiotic agents; Z88.6 Allergy status to analgesic agent; Z91.041 Radiographic dye allergy status
CPT/HCPCS: 36415; 70450; 71250; 72125; 80048; 80053; 81003; 81015; 82550; 82553; 83605; 83690; 83735; 83880; 84436; 84439; 84443; 84479; 84481; 84484; 85025; 85610; 85730; 86140; 87086; 93005; A9270-GY; G8978-GP-CJ; G8979-GP-CI; J1644; J1885; J3475

== ENCOUNTER 2016-09-15 10:15 | Inpatient (IN) | payer MEDICARE, BC ==
[2016-09-15] MEDS ORDERED: Bisacodyl SUPP* 10 MG SUPP PR PRN (13:08)
[2016-09-15] MEDS ORDERED: Al Hydrox/Mg Hydrox/Simet LIQ* 30 ML UDC PO PRN (13:08)
[2016-09-15] MEDS ORDERED: Nystatin CREAM* 15 GM TUBE TOPICAL PRN (13:18)
[2016-09-15] MEDS: Carbidopa/Levodop 25/100 MG TAB(*) PO SCH ×3 (13:49→20:09)
[2016-09-15] MEDS: Heparin VIAL(*) 5000 UNITS/ML VIAL (FIVE THOUSAND) SUBCUT SCH ×2 (13:51→21:57)
[2016-09-15] MEDS: Ibuprofen TAB* 600 MG PO PRN (16:17)
[2016-09-15] MEDS: Artificial Tears* 15 ML BTL BOTH EYES SCH ×2 (16:27→20:29)
--- NOTE | 2016-09-15 17:10 | HP ---
REHABILITATION ADMISSION REPORT: DATE OF ADMISSION: 09/15/16 PRIMARY CARE PROVIDER: Dr. Parra. NEUROLOGIST: Dr. Babcock. REASON FOR ADMISSION: Parkinson's disease with fall and sternum fracture. HISTORY OF PRESENT ILLNESS: This is a 76-year-old woman with Parkinson's disease, who reports 3 falls in the last year including the one that occurred on 09/12/16 leading up to this admission. She notes that she had been constipated and was advised to take laxatives. She started having loose stools over several days and on the day of admission after having a stool, stood up for her to wipe her, when she started feeling lightheaded dizzy and passed out. She was brought to the hospital. She was found to have on CT of the chest, a slightly impacted fracture of the anterior cortex of the body of the sternum that was transverse. CT of the head and neck were negative for any acute changes. Right wrist x-ray showed she was status post ORIF of distal radius fracture. Hand x-rays were negative except for osteopenia. Hip and pelvis x-rays were also negative. She was orthostatic with hypokalemia and hypomagnesemia. She is admitted for hydration and replenishment of her electrolytes. Prior to admission, she could walk around her home without any assistive device, but used one of two walkers including a rollator when she was out of the home. Because of restrictions of her right shoulder range of motion after right shoulder replacement surgery several years ago, her did help her wipe her bottom and she has an aide that comes twice a week to help her with bathing. Her also does the cooking. With physical therapy, she has required a maximum assistance for transfers with the rolling walker and has ambulated on her feet with contact-guard assistance. At this point, she feels that she is constipated again. PAST MEDICAL HISTORY: 1. Parkinson's disease. 2. Hypothyroidism. 3. Arthritis, status post right shoulder replacement with very limited right shoulder range of motion after surgery. 4. Hyperlipidemia. 5. Status post hysterectomy. 6. Status post cholecystectomy. 7. History of right distal radius fracture, status post ORIF. 8. History of breast biopsies. 9. GERD. 10. Peripheral neuropathy. MEDICATIONS: Currently: 1. Tylenol p.r.n. 2. Sinemet 25/100 utv-brn-s-half tablets at 1200, 1600, and 2000, and 2 tablets at 0800. 3. Colace 100 mg b.i.d. 4. Pepcid 20 mg b.i.d. 5. Heparin 5000 units q.8 hours for DVT prophylaxis. 6. Ibuprofen 600 mg q.6 hours p.r.n. pain. 7. Bacitracin twice a day to her right hand. 8. Nystatin cream p.r.n. ALLERGIES: CIPROFLOXACIN, ERYTHROMYCIN, IODINE, ACIPHEX, VICODIN, DOXYCYCLINE, PREVACID, LEVAQUIN, VIOXX, SULFA, and LORABID. FAMILY HISTORY: Reviewed, it is noncontributory. SOCIAL HISTORY: She lives with her in [place]. Their home has 3 steps to enter and then is on one level. Her uses a cane but is able to assist her with things such as toileting as needed. She has a son who is also in [place]. 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 She has a sedentary lifestyle at this point. No smoking or alcohol. REVIEW OF SYSTEMS: See history of present illness and past medical history. The remainder of 10-system review is completed. No other significant findings. PHYSICAL EXAMINATION GENERAL: Well developed, well nourished, appearing stated age. Mental Status: In no acute distress. Alert and oriented x3. VITAL SIGNS: Temperature 97.7, pulse 85, respirations 18, oxygenation 100% on room air, blood pressure 136/50. HEENT: Normocephalic, atraumatic. Oropharynx clear. Moist mucous membranes. LUNGS: Clear to auscultation bilaterally. HEART: Regular rate and rhythm. ABDOMEN: Active bowel sounds, soft, nontender, nondistended. EXTREMITIES: No clubbing or cyanosis. She does have swelling along the right forearm where she also has ecchymosis. MUSCULOSKELETAL: She has bunions and arthritic changes in both of her feet. She does have some tenderness in the right hand, which was already x-rayed. She has full range of motion in all her major joints with the exception of her right shoulder, which has very limited range of motion. NEUROLOGICAL: Cranial nerves II through XII are intact. Upper extremity motor and bilateral lower extremity motor 5/5 with normal sensation. IMPRESSION: A 76-year-old woman with Parkinson's disease and sternum fracture , who will be admitted to [facility], so she can return to living with her 's assistance. PLAN: 1. Parkinson's disease. Continue on her Sinemet. 2. Sternum fracture. This was a minimally impacted fracture of the anterior cortex of the sternum in a transverse manner. She does not need formal sternal precautions. We need to control her pain with medications. She will be scheduled on Tylenol and we will keep ibuprofen on an as-needed basis. Continue with Pepcid for GI prophylaxis and her GERD. 3. History of hypokalemia and hypomagnesemia. This will be monitored on routine labs starting tomorrow. 4. Constipation. Her bowels will be regulated. 5. Right hand skin tear. Local care with bacitracin and daily dressing changes. 6. Impaired mobility. She will be seen by Physical Therapy for bed mobility, transfers, and gait training using a rolling walker. Family training as appropriate. 7. Impaired self-care. She will be seen by Occupational Therapy for ADL training and equipment evaluation. Once again, family training as appropriate. 8. Advance directives. Her is her healthcare proxy if she cannot make decisions for herself. His name is Layo Omer. She is a full code. 9. Estimated length of stay: One week, then return to home. CC: Dr. Parra; Dr. Babcock* [id number]/[facility] #: [id number] [facility]
[2016-09-15] MEDS: Acetaminophen TAB* 325 MG PO SCH ×2 (19:10→23:15)
[2016-09-15] MEDS: Docusate CAP* 100 MG PO SCH (20:28)
[2016-09-15] MEDS: Famotidine TAB* 20 MG PO SCH (20:28)
[2016-09-15] MEDS: Senna TAB PO SCH (20:29)
[2016-09-16] MEDS: Ibuprofen TAB* 600 MG PO PRN ×3 (04:20→20:07)
[2016-09-16] MEDS: Acetaminophen TAB* 325 MG PO SCH ×4 (06:22→23:48)
[2016-09-16] MEDS: Carbidopa/Levodop 25/100 MG TAB(*) PO SCH ×4 (06:22→20:09)
[2016-09-16] MEDS: Heparin VIAL(*) 5000 UNITS/ML VIAL (FIVE THOUSAND) SUBCUT SCH ×3 (06:23→21:14)
[2016-09-16 07:40] LABS: Hematocrit 36 % (35-47); Hemoglobin 12.3 g/dl (12.0-16.0); Mean Corpuscular HGB Conc 34 g/dl (31-36); Mean Corpuscular Hemoglobin 31 pg (27-31); Mean Corpuscular Volume 93 fL (80-97); Mean Platelet Volume 8 um3 (7.4-10.4); Red Cell Distribution Width 14 % (10.5-15); White Blood Count 4.8 10^3/ul (3.5-10.8)
[2016-09-16 08:00] LABS: ALT < 3 U/L (7-52); AST 11 U/L (13-39); Albumin 3.3 g/dL (3.2-5.2); Alkaline Phosphatase 47 U/L (34-104); Anion Gap 6 mmol/L (2-11); BUN/Creatinine Ratio 18.7 (8-20); Blood Urea Nitrogen 23 mg/dL (6-24); CO2 Carbon Dioxide 28 mmol/L (22-32); Calcium 8.9 mg/dL (8.6-10.3); Chloride 103 mmol/L (101-111); EGFR African American 54.4 (>60); EGFR Non-African American 42.3 (>60); Globulin 2.5 g/dL (2-4); Glucose 121 mg/dL (70-100); Magnesium 1.8 mg/dL (1.9-2.7); Potassium 4.2 mmol/L (3.5-5.0); Sodium 137 mmol/L (133-145); Total Protein 5.8 g/dL (6.4-8.9)
[2016-09-16] MEDS: Famotidine TAB* 20 MG PO SCH ×2 (08:51→20:08)
[2016-09-16] MEDS: Docusate CAP* 100 MG PO SCH ×2 (08:52→20:08)
[2016-09-16] MEDS: Bacitracin OINTMENT* 0.5% 0.5 oz TUBE TOPICAL SCH (11:33)
[2016-09-16] MEDS: Artificial Tears* 15 ML BTL BOTH EYES SCH ×3 (11:33→21:13)
[2016-09-16] MEDS ORDERED: Magnesium Hydroxide LIQ* 30 ML UDC PO PRN (13:37)
[2016-09-16] MEDS: Senna TAB PO SCH (20:08)
[2016-09-17] MEDS: Ibuprofen TAB* 600 MG PO PRN ×3 (01:33→21:34)
[2016-09-17] MEDS: Acetaminophen TAB* 325 MG PO SCH ×3 (05:18→17:46)
[2016-09-17] MEDS: Heparin VIAL(*) 5000 UNITS/ML VIAL (FIVE THOUSAND) SUBCUT SCH ×3 (05:20→21:37)
[2016-09-17] MEDS: Carbidopa/Levodop 25/100 MG TAB(*) PO SCH ×4 (08:02→20:02)
[2016-09-17] MEDS: Famotidine TAB* 20 MG PO SCH ×2 (08:02→20:02)
[2016-09-17] MEDS: Docusate CAP* 100 MG PO SCH ×2 (08:02→20:02)
[2016-09-17] MEDS: Artificial Tears* 15 ML BTL BOTH EYES SCH ×3 (09:57→21:36)
[2016-09-17] MEDS: Bacitracin OINTMENT* 0.5% 0.5 oz TUBE TOPICAL SCH (09:57)
[2016-09-17] MEDS: Senna TAB PO SCH (20:02)
[2016-09-18] MEDS: Acetaminophen TAB* 325 MG PO SCH ×4 (00:45→17:05)
[2016-09-18] MEDS: Ibuprofen TAB* 600 MG PO PRN ×2 (02:56→22:03)
[2016-09-18] MEDS: Heparin VIAL(*) 5000 UNITS/ML VIAL (FIVE THOUSAND) SUBCUT SCH ×4 (04:54→22:39)
[2016-09-18] MEDS: Famotidine TAB* 20 MG PO SCH ×2 (08:05→20:06)
[2016-09-18] MEDS: Docusate CAP* 100 MG PO SCH ×2 (08:06→20:06)
[2016-09-18] MEDS: Carbidopa/Levodop 25/100 MG TAB(*) PO SCH ×4 (08:06→20:06)
[2016-09-18] MEDS: Artificial Tears* 15 ML BTL BOTH EYES SCH ×4 (08:57→20:11)
[2016-09-18] MEDS: Bacitracin OINTMENT* 0.5% 0.5 oz TUBE TOPICAL SCH (08:58)
--- NOTE | 2016-09-18 12:40 | PMRUTEAM ---
PMRU: Goals Current Status: Nursing: Current Status Skin Deviations [Coccyx] Skin Tear Skin Deviations [Bilateral Rash Breast] Skin Deviations [Left Arm] Bruise Skin Deviations [Left Calf] Bruise Skin Deviations [Right Foot] Bruise Skin Deviations [Right Hand] Abrasion,Skin Tear Skin Deviation Description [ Little red Coccyx] Skin Deviation Description [ skin barrier applied after patient showering Bilateral Breast] Skin Deviation Description [ back of hand and arm from IV sticks Left Arm] Skin Deviation Description [ top of foot entirely bruised Right Foot] Skin Deviation Description [ areas washed with soap and water. areas improving. Right Hand] bacitracin, telfa and maria dolores applied Physical Therapy: Current Status Bed Mobility Assistance Independent Transfer Moblility Assistance Contact Guard Assist/min assist Transfer/Bed Mobility Rolling Walker Recommended Devices Ambulation Assistance Contact Guard Assist/min assist Ambulation Assistive Devices Rolling Walker Number of Feet Patient 100x2 Ambulated Stairs Assistance Not Tested Stairs Recommended Devices One Rail Number of Stairs 3 Occupational Therapy: Current Status Upper Body Dressing Mod Assist Lower Body Dressing Max Asst Bathing Mod Assist,Max Asst Toileting Max Asst Toilet Transfer Min Assist Eating Set up Rec Therapy: Current Status Summary of Assessment and Patient was open to meeting with this marketing underwriter to Clinical Impression discuss her interests. Patient appeared dysphoric and tired during our conversation. Was able to identify interests but stated she's been "stiff" and has had chest pain which has been keeping her from enjoying these things. Patient identified a lot of supportive family members who she stays in touch with. Asked for a jigsaw puzzle to work on in her room which this marketing underwriter provided. Treatment Goals Patient will engage in recreation and leisure activities while on the unit. Treatment Plan Provide and encourage involvement in RT services. Provided with a jigsaw puzzle for her enjoyment. Goals: Physical Therapy: Initial Goals Bed Mobility Assistance Independent Transfer Mobility Assistance Independent Transfer/Bed Mobility Rolling Walker Recommended Devices Ambulation Independent Ambulation Recommended Devices Rolling Walker Ambulation Distance 150 Stairs Assistance Independent Stair Recommended Devices One Rail Number of Stairs 7 Physical Therapy: Updated Goals Transfer/Bed Mobility Rolling Walker Recommended Devices Occupational Therapy: Initial Goals Goals to be Completed in (Days 7-10 ) Upper Body Bathing Routine Minimal Contact Assist Lower Body Bathing Routine Moderate Assist Upper Body Dressing Routine Minimal Contact Assist Lower Body Dressing Routine Moderate Assist,Maximal Assist Toilet Hygeine and Clothing Moderate Assist Management Routine Toilet Transfer Routine Supervision/Set Up Step-In Shower Transfer Minimal Contact Assist Routine Functional Transfers for ADL Modified Independent with Grooming Routine Independent Feeding Routine Independent Care Plan: Care Plan ADL's - Improve/Maintain Start: 09/16/16 12:13 Freq: DAILY Status: Active Target: Activity Type Activity Date Activity User E-Sign Co-Sign Detail Recorded Client Recorded Date Recorded By Document 09/16/16 12:13 [id number] 09/16/16 12:14 [id number] 09/16/16 12:13 PMRU Outcome: ADL's/ADL Transfers Orders/Interventions Occupational Therapy Evaluation & Treatment Communication Tool in Patient Room Device Yes Patient to receive OT 5x/wk for 60-120 Therex min/day Self Care Management Group Therapy UE/LE ADL's with Assist Yes: Tom UB, modA LB ADL Transfers with Assist Yes: supervision- Tom Toileting: Transfers,Clothing Management Yes: modA ,Hygeine w/Assist Light Kitchen/Laundry w/Assist No Progression Toward Outcome/Goals Progressing Cardiovascular- Improve/Maintain Start: 09/15/16 14:59 Freq: DAILY Status: Active Target: Activity Type Activity Date Activity User E-Sign Co-Sign Detail Recorded Client Recorded Date Recorded By Document 09/18/16 10:19 [id number] 09/18/16 10:22 [id number] 09/18/16 10:19 PMRU Outcome: Cardiovascular Vital Signs q Shift for 48hrs Then BID Yes Daily Weight Ordered No Current Cardiovascular Outcome/Goal Free of Abnormal Cardiac Symptoms Progression Toward Outcome/Goal Progressing Coping/Psych-Improve/Maintain Start: 09/15/16 14:59 Freq: DAILY Status: Active Target: Activity Type Activity Date Activity User E-Sign Co-Sign Detail Recorded Client Recorded Date Recorded By Document 09/18/16 10:19 [id number] 09/18/16 10:22 [id number] 09/18/16 10:19 PMRU Outcome: Coping/Psychosocial Coping Outcome/Goals Verbalization of Acceptance of Rehab Admit Verbalization of Sense of Control Over Health Status Utilization of Appropriate Problem Solving Techniques Willingness to Participate in Treatment Plan and Basic Needs Utilization of Available Support Systems Psychosocial Outcome/Goals Maintain/ Improve Emotional Health Demonstrates Knowledge of Healthy Coping Mechanisms Available Cooperate/ Participate in Plan Progression Toward Outcome/Goals - Progressing Coping Progression Toward Outcome/Goals - Progressing Psychosocial Outcome/Goals Met Comment pt very anxious DVT Prophylaxis- Improve/Maintain Start: 09/15/16 14:59 Freq: DAILY Status: Active Target: Activity Type Activity Date Activity User E-Sign Co-Sign Detail Recorded Client Recorded Date Recorded By Document 09/18/16 10:19 [id number] 09/18/16 10:22 [id number] 09/18/16 10:19 PMRU Outcome: DVT Prophylaxis Outcome/Goals Remains Free of DVT Complies with DVT Prophylaxis /Treatment Demonstrates Knowledge of DVT Prevention/ Treatment TEDS Stockings on Every AM, Off at HS Progression Toward Outcome/Goals Progressing Outcome/Goals Met Remains Free of DVT Complies with DVT Prophylaxis /Treatment Demonstrates Knowledge of DVT Prevention/ Treatment TEDS Stockings on Every AM, Off at HS Discharge Planning - Improve/Maintain Start: 09/15/16 14:59 Freq: DAILY Status: Active Target: Activity Type Activity Date Activity User E-Sign Co-Sign Detail Recorded Client Recorded Date Recorded By Document 09/18/16 10:19 [id number] 09/18/16 10:22 [id number] 09/18/16 10:19 PMRU Outcome: Discharge Planning Identify Patient Needs yes Update Patient Family No Outcome/Goals Demonstrates Understanding of Discharge Plan Progression Toward Outcome/Goals Progressing Education-Improve/Maintain Start: 09/15/16 14:59 Freq: DAILY Status: Active Target: Activity Type Activity Date Activity User E-Sign Co-Sign Detail Recorded Client Recorded Date Recorded By Document 09/18/16 10:19 [id number] 09/18/16 10:22 [id number] 09/18/16 10:19 PMRU Outcome: Education Outcome/Goals Demonstrate/ Verbalize Understanding of Written Discharge Instructions Demonstrates Skills Encourage Questions Other Outcome/Goals to assist at home Progression Toward Outcome/Goals Progressing /GI-Improve/Maintain Start: 09/15/16 14:59 Freq: DAILY Status: Active Target: Activity Type Activity Date Activity User E-Sign Co-Sign Detail Recorded Client Recorded Date Recorded By Document 09/18/16 10:19 [id number] 09/18/16 10:22 [id number] 09/18/16 10:19 PMRU Outcome: Genitourinary/ Gastrointestinal Genitourinary- Outcome/Goals Maintain/ Achieve Urinary Continence Remain Free of Hospital- Acquired UTI Gastrointestinal-Outcome/Goals Remain Free of Emesis Prevent Constipation Laxatives as Ordered Progression Toward Outcome/Goals - Progressing Progression Toward Outcome/Goals - GI Progressing Medication Administration Start: 09/15/16 14:59 Freq: DAILY Status: Active Target: Activity Type Activity Date Activity User E-Sign Co-Sign Detail Recorded Client Recorded Date Recorded By Document 09/18/16 10:19 [id number] 09/18/16 10:22 [id number] 09/18/16 10:19 PMRU Outcome: Medication Administration Assess Patient Knowledge/Teach Med Yes Education for all Meds Outcome/Goals Family/ Caregiver Administer Medications at Home Demonstrates Understanding Progression Towards Outcome/Goals Progressing Is Patient Going Home on Lovenox? No Mobility- Improve/Maintain Start: 09/16/16 18:00 Freq: DAILY Status: Active Target: Activity Type Activity Date Activity User E-Sign Co-Sign Detail Recorded Client Recorded Date Recorded By Document 09/16/16 18:02 [id number] 09/16/16 18:02 [id number] 09/16/16 18:02 PMRU Outcome: Mobility Physical Therapy Evaluation and Yes Treatment Activity OOB with Assistance Yes Device Yes Assistance Yes Patient to be seen 5x/wk for 60-120 min/ Therex day for: Mobility Training Gait Training Balance Other Outcome/Goals Maintain/ Achieve Baseline Mobility Status Improve Mobility Status Demonstrates Proper Use of Assistive Devices Free from Complications of Immobility Progression Toward Outcome/Goals Progressing Bed Mobility Yes: independent Transfers Yes: independent with rolling walker Gait x ft Yes: independent with rolling walker to 150 ' Up/Down Stairs Yes: independent with 1 rail up/ down 5 stairs Pain/Comfort- Improve/Maintain Start: 09/15/16 15:04 Freq: DAILY Status: Active Target: Activity Type Activity Date Activity User E-Sign Co-Sign Detail Recorded Client Recorded Date Recorded By Document 09/18/16 10:19 [id number] 09/18/16 10:22 [id number] 09/18/16 10:19 PMRU Outcome: Pain/Comfort Outcome/Goals Demonstrates Knowledge and Use of Available Comfort Measures Achieves Acceptable Comfort/Pain Level as Determined by Patient/Condit Maintain Comfort Level Allowing Patient to Fully Participate in Rehab Progression Toward Outcome/Goals Progressing Respiratory - Improve/Maintain Start: 09/15/16 15:04 Freq: DAILY Status: Active Target: Activity Type Activity Date Activity User E-Sign Co-Sign Detail Recorded Client Recorded Date Recorded By Document 09/18/16 10:19 [id number] 09/18/16 10:22 [id number] 09/18/16 10:19 PMRU Outcome: Respiratory Does Patient Have a Trach No Outcome/Goals Maintain/ Improve Baseline Respiratory Status Maintain/ Improve Activity Tolerance Prevent Pneumonia/ Atelectasis Progression Toward Outcome/Goals Progressing Safety- Improve/Maintain Start: 09/15/16 15:04 Freq: DAILY Status: Active Target: Activity Type Activity Date Activity User E-Sign Co-Sign Detail Recorded Client Recorded Date Recorded By Document 09/18/16 10:19 [id number] 09/18/16 10:22 [id number] 09/18/16 10:19 PMRU Outcome: Safety Outcome/Goals Remain Free of Injury or Harm Cooperates with Safety Measures for Least Restrictive Environment Prevent Falls/ Injury Progression Toward Outcome/Goals Progressing Outcome/Goals Met Remain Free of Injury or Harm Cooperates with Safety Measures for Least Restrictive Environment Prevent Falls/ Injury Outcome/Goals Met Comment PA in place Skin- Improve/Maintain Start: 09/15/16 15:04 Freq: DAILY Status: Active Target: Activity Type Activity Date Activity User E-Sign Co-Sign Detail Recorded Client Recorded Date Recorded By Document 09/18/16 10:19 [id number] 09/18/16 10:22 [id number] 09/18/16 10:19 PMRU Outcome: Skin Skin Risk Level Medium Skin Orders Air Mattress Spenco Boots Turn/Position q2hr While in Bed Outcome/Goals Maintain/ Improve Skin Intergrity Free from Decubitus Progression Toward Outcome/Goals Progressing Medicine Note: Length of Stay: 5 days Anticipated Discharge Destination: Tentative Discharge Date: 09/22/16 Discharged to: Home
[2016-09-18] MEDS: Senna TAB PO SCH (20:06)
[2016-09-19] MEDS: Acetaminophen TAB* 325 MG PO SCH ×4 (01:43→18:01)
[2016-09-19] MEDS: Ibuprofen TAB* 600 MG PO PRN ×3 (03:47→22:06)
[2016-09-19] MEDS: Heparin VIAL(*) 5000 UNITS/ML VIAL (FIVE THOUSAND) SUBCUT SCH ×3 (05:40→21:13)
[2016-09-19] MEDS: Famotidine TAB* 20 MG PO SCH ×2 (08:53→20:05)
[2016-09-19] MEDS: Carbidopa/Levodop 25/100 MG TAB(*) PO SCH ×4 (08:53→20:04)
[2016-09-19] MEDS: Artificial Tears* 15 ML BTL BOTH EYES SCH ×3 (08:54→20:08)
[2016-09-19] MEDS: Docusate CAP* 100 MG PO SCH ×2 (08:57→20:05)
[2016-09-19] MEDS: Bacitracin OINTMENT* 0.5% 0.5 oz TUBE TOPICAL SCH (09:30)
--- NOTE | 2016-09-19 12:57 | PMRUTEAM ---
PMRU: Goals Current Status: Nursing: Current Status Skin Deviations [Coccyx] Other Skin Deviations [Bilateral Rash Breast] Skin Deviations [Left Arm] Bruise Skin Deviations [Left Calf] Bruise Skin Deviations [Right Foot] Bruise Skin Deviations [Right Hand] Skin Tear Skin Deviation Description [ itchy, powder applied Coccyx] Skin Deviation Description [ under bilateral breasts. skin prep barrier applied Bilateral Breast] after skin prep applied Skin Deviation Description [ back of hand and arm from IV sticks Left Arm] Skin Deviation Description [ top of foot entirely bruised Right Foot] Skin Deviation Description [ skin tears x3. area washed with soap and water, Right Hand] bacitracin, telfa and maria dolores applied. slowly improving Bladder Current Status voiding on toilet. no incontinence. needs assist to wipe Bowel Current Status taking bowel meds. last bm 09/18/16 Nutrition Current Status adequate intake Medication Current Status tylenol/motrin for pain Physical Therapy: Current Status Bed Mobility Assistance Mod Assist Transfer Moblility Assistance Min Assist,Mod Assist Transfer/Bed Mobility Rolling Walker Recommended Devices Ambulation Assistance Supervision,Contact Guard Assist Ambulation Assistive Devices Rolling Walker Number of Feet Patient 150 Ambulated Stairs Assistance Supervision,Contact Guard Assist Stairs Recommended Devices One Rail,Two Rails Number of Stairs 5 Occupational Therapy: Current Status Upper Body Dressing Min Assist Lower Body Dressing Max Asst Bathing Mod Assist Toileting Mod Assist Toilet Transfer Contact Guard Assist Shower Transfer Contact Guard Assist Eating Supervision Rec Therapy: Current Status Summary of Assessment and RT assessment complete and pt. is aware of RT Clinical Impression services. Pt. is open to leisure visits and engages in activities independently in her room. Treatment Goals Patient will engage in recreation and leisure activities while on the unit. Treatment Plan Provide and encourage involvement in RT services. Provided with a jigsaw puzzle for her enjoyment. Nutrition: Current Status Monitoring pt consuming a regular diet rather well without reported dysphagia. BM 09/12 and again on 09/17; receiving Scar and Colace. BG mildly elevated ( 115-151); no steroid therapy or hx DM, so may wish to follow longer-term glycemic control d/t risk factors of age and wt. Goals: Physical Therapy: Initial Goals Bed Mobility Assistance Independent Transfer Mobility Assistance Independent Transfer/Bed Mobility Rolling Walker Recommended Devices Ambulation Independent Ambulation Recommended Devices Rolling Walker Ambulation Distance 150 Stairs Assistance Independent Stair Recommended Devices One Rail Number of Stairs 7 Physical Therapy: Updated Goals Bed Mobility Assistance Independent Transfer Mobility Assistance Independent Transfer/Bed Mobility Rolling Walker Recommended Devices Ambulation Assistance Independent Ambulation Assistive Devices Rolling Walker Ambulation Distance (ft) 150 Stairs Assistance Independent Stairs Recommended Devices One Rail,Two Rails Number of Stairs 5 Occupational Therapy: Initial Goals Goals to be Completed in (Days 7-10 ) Upper Body Bathing Routine Minimal Contact Assist Lower Body Bathing Routine Moderate Assist Upper Body Dressing Routine Minimal Contact Assist Lower Body Dressing Routine Moderate Assist,Maximal Assist Toilet Hygeine and Clothing Moderate Assist Management Routine Toilet Transfer Routine Supervision/Set Up Step-In Shower Transfer Minimal Contact Assist Routine Functional Transfers for ADL Modified Independent with Grooming Routine Independent Feeding Routine Independent Nursing: Goals Bladder Goal independent Bowel Goal independent Nutrition Goal 100% of all meals. Medication Goal assists with meds at home Nutrition: Goals Intervention Goals 1. adequate po intake to maintain lean body mass without add'l wt gain 2. glycemic control within reasonable ranges (per available labs) 3. maintenance of skin integrity; no evidence od skin breakdown/open areas 4. regulated bowel pattern without c/o constipation (or diarrhea) Care Plan: Care Plan ADL's - Improve/Maintain Start: 09/16/16 12:13 Freq: DAILY Status: Active Target: Activity Type Activity Date Activity User E-Sign Co-Sign Detail Recorded Client Recorded Date Recorded By Document 09/16/16 12:13 [id number] 09/16/16 12:14 [id number] 09/16/16 12:13 PMRU Outcome: ADL's/ADL Transfers Orders/Interventions Occupational Therapy Evaluation & Treatment Communication Tool in Patient Room Device Yes Patient to receive OT 5x/wk for 60-120 Therex min/day Self Care Management Group Therapy UE/LE ADL's with Assist Yes: Tom UB, modA LB ADL Transfers with Assist Yes: supervision- Tom Toileting: Transfers,Clothing Management Yes: modA ,Hygeine w/Assist Light Kitchen/Laundry w/Assist No Progression Toward Outcome/Goals Progressing Cardiovascular- Improve/Maintain Start: 09/15/16 14:59 Freq: DAILY Status: Active Target: Activity Type Activity Date Activity User E-Sign Co-Sign Detail Recorded Client Recorded Date Recorded By Document 09/19/16 09:00 [id number] 09/19/16 10:54 [id number] 09/19/16 09:00 PMRU Outcome: Cardiovascular Vital Signs q Shift for 48hrs Then BID Yes Daily Weight Ordered No Current Cardiovascular Outcome/Goal Free of Abnormal Cardiac Symptoms Progression Toward Outcome/Goal Progressing Coping/Psych-Improve/Maintain Start: 09/15/16 14:59 Freq: DAILY Status: Active Target: Activity Type Activity Date Activity User E-Sign Co-Sign Detail Recorded Client Recorded Date Recorded By Document 09/19/16 09:00 [id number] 09/19/16 10:54 [id number] 09/19/16 09:00 PMRU Outcome: Coping/Psychosocial Coping Outcome/Goals Verbalization of Acceptance of Rehab Admit Verbalization of Sense of Control Over Health Status Utilization of Appropriate Problem Solving Techniques Willingness to Participate in Treatment Plan and Basic Needs Utilization of Available Support Systems Psychosocial Outcome/Goals Maintain/ Improve Emotional Health Demonstrates Knowledge of Healthy Coping Mechanisms Available Cooperate/ Participate in Plan Progression Toward Outcome/Goals - Progressing Coping Progression Toward Outcome/Goals - Progressing Psychosocial Outcome/Goals Met Comment support and reassurance given. DVT Prophylaxis- Improve/Maintain Start: 09/15/16 14:59 Freq: DAILY Status: Active Target: Activity Type Activity Date Activity User E-Sign Co-Sign Detail Recorded Client Recorded Date Recorded By Document 09/19/16 09:00 [id number] 09/19/16 10:54 [id number] 09/19/16 09:00 PMRU Outcome: DVT Prophylaxis Outcome/Goals Remains Free of DVT Complies with DVT Prophylaxis /Treatment Demonstrates Knowledge of DVT Prevention/ Treatment TEDS Stockings on Every AM, Off at HS Progression Toward Outcome/Goals Progressing Outcome/Goals Met Remains Free of DVT Complies with DVT Prophylaxis /Treatment Demonstrates Knowledge of DVT Prevention/ Treatment TEDS Stockings on Every AM, Off at HS Discharge Planning - Improve/Maintain Start: 09/15/16 14:59 Freq: DAILY Status: Active Target: Activity Type Activity Date Activity User E-Sign Co-Sign Detail Recorded Client Recorded Date Recorded By Document 09/19/16 00:13 [id number] 09/19/16 00:14 [id number] 09/19/16 00:13 PMRU Outcome: Discharge Planning Identify Patient Needs yes Update Patient Family No Outcome/Goals Demonstrates Understanding of Discharge Plan Progression Toward Outcome/Goals Progressing Tentative Discharge Date 09/22/16 Education-Improve/Maintain Start: 09/15/16 14:59 Freq: DAILY Status: Active Target: Activity Type Activity Date Activity User E-Sign Co-Sign Detail Recorded Client Recorded Date Recorded By Document 09/19/16 09:00 [id number] 09/19/16 10:54 [id number] 09/19/16 09:00 PMRU Outcome: Education Outcome/Goals Demonstrate/ Verbalize Understanding of Written Discharge Instructions Demonstrates Skills Encourage Questions Other Outcome/Goals to assist at home Progression Toward Outcome/Goals Progressing /GI-Improve/Maintain Start: 09/15/16 14:59 Freq: DAILY Status: Active Target: Activity Type Activity Date Activity User E-Sign Co-Sign Detail Recorded Client Recorded Date Recorded By Document 09/19/16 09:00 [id number] [id number] 09/19/16 10:54 [id number] 09/19/16 09:00 PMRU Outcome: Genitourinary/ Gastrointestinal Genitourinary- Outcome/Goals Maintain/ Achieve Urinary Continence Remain Free of Hospital- Acquired UTI Gastrointestinal-Outcome/Goals Remain Free of Emesis Prevent Constipation Laxatives as Ordered Progression Toward Outcome/Goals - Progressing Progression Toward Outcome/Goals - GI Progressing Medication Administration Start: 09/15/16 14:59 Freq: DAILY Status: Active Target: Activity Type Activity Date Activity User E-Sign Co-Sign Detail Recorded Client Recorded Date Recorded By Document 09/19/16 09:00 [id number] [id number] 09/19/16 10:54 [id number] 09/19/16 09:00 PMRU Outcome: Medication Administration Assess Patient Knowledge/Teach Med Yes Education for all Meds Outcome/Goals Family/ Caregiver Administer Medications at Home Demonstrates Understanding Progression Towards Outcome/Goals Progressing Is Patient Going Home on Lovenox? No Mobility- Improve/Maintain Start: 09/16/16 18:00 Freq: DAILY Status: Active Target: Activity Type Activity Date Activity User E-Sign Co-Sign Detail Recorded Client Recorded Date Recorded By Document 09/18/16 23:39 [id number] 09/18/16 23:39 [id number] 09/18/16 23:39 PMRU Outcome: Mobility Physical Therapy Evaluation and Yes Treatment Activity OOB with Assistance Yes Device Yes Assistance Yes Patient to be seen 5x/wk for 60-120 min/ Therex day for: Mobility Training Gait Training Balance Other Outcome/Goals Maintain/ Achieve Baseline Mobility Status Improve Mobility Status Demonstrates Proper Use of Assistive Devices Free from Complications of Immobility Progression Toward Outcome/Goals Progressing Bed Mobility Yes: independent Transfers Yes: independent with rolling walker Gait x ft Yes: independent with rolling walker to 150 ' Up/Down Stairs Yes: independent with 1 rail up/ down 5 stairs Pain/Comfort- Improve/Maintain Start: 09/15/16 15:04 Freq: DAILY Status: Active Target: Activity Type Activity Date Activity User E-Sign Co-Sign Detail Recorded Client Recorded Date Recorded By Document 09/19/16 09:00 [id number] 09/19/16 10:54 [id number] 09/19/16 09:00 PMRU Outcome: Pain/Comfort Outcome/Goals Demonstrates Knowledge and Use of Available Comfort Measures Achieves Acceptable Comfort/Pain Level as Determined by Patient/Condit Maintain Comfort Level Allowing Patient to Fully Participate in Rehab Progression Toward Outcome/Goals Progressing Respiratory - Improve/Maintain Start: 09/15/16 15:04 Freq: DAILY Status: Active Target: Activity Type Activity Date Activity User E-Sign Co-Sign Detail Recorded Client Recorded Date Recorded By Document 09/19/16 09:00 [id number] 09/19/16 10:54 [id number] 09/19/16 09:00 PMRU Outcome: Respiratory Does Patient Have a Trach No Outcome/Goals Maintain/ Improve Baseline Respiratory Status Maintain/ Improve Activity Tolerance Prevent Pneumonia/ Atelectasis Progression Toward Outcome/Goals Progressing Safety- Improve/Maintain Start: 09/15/16 15:04 Freq: DAILY Status: Active Target: Activity Type Activity Date Activity User E-Sign Co-Sign Detail Recorded Client Recorded Date Recorded By Document 09/19/16 09:00 [id number] 09/19/16 10:54 [id number] 09/19/16 09:00 PMRU Outcome: Safety Outcome/Goals Remain Free of Injury or Harm Cooperates with Safety Measures for Least Restrictive Environment Prevent Falls/ Injury Progression Toward Outcome/Goals Progressing Outcome/Goals Met Remain Free of Injury or Harm Cooperates with Safety Measures for Least Restrictive Environment Prevent Falls/ Injury Outcome/Goals Met Comment PA in place Skin- Improve/Maintain Start: 09/15/16 15:04 Freq: DAILY Status: Active Target: Activity Type Activity Date Activity User E-Sign Co-Sign Detail Recorded Client Recorded Date Recorded By Document 09/19/16 09:00 [id number] 09/19/16 10:54 [id number] 09/19/16 09:00 PMRU Outcome: Skin Skin Risk Level Medium Skin Orders Air Mattress Spenco Boots Turn/Position q2hr While in Bed Outcome/Goals Maintain/ Improve Skin Intergrity Free from Decubitus Progression Toward Outcome/Goals Progressing Medicine Note: Length of Stay: 3 days Anticipated Discharge Destination: Tentative Discharge Date: 09/22/16 Discharged to: Home
[2016-09-19] MEDS: Senna TAB PO SCH (20:05)
[2016-09-20] MEDS: Acetaminophen TAB* 325 MG PO SCH ×4 (00:45→17:54)
[2016-09-20] MEDS: Ibuprofen TAB* 600 MG PO PRN ×2 (04:19→19:41)
[2016-09-20] MEDS: Heparin VIAL(*) 5000 UNITS/ML VIAL (FIVE THOUSAND) SUBCUT SCH ×3 (05:10→21:27)
[2016-09-20] MEDS: Carbidopa/Levodop 25/100 MG TAB(*) PO SCH ×4 (08:13→20:03)
[2016-09-20] MEDS: Famotidine TAB* 20 MG PO SCH ×2 (08:13→20:04)
[2016-09-20] MEDS: Indapamide TAB* 2.5 MG PO SCH (08:13)
[2016-09-20] MEDS: Docusate CAP* 100 MG PO SCH ×2 (08:13→20:51)
[2016-09-20] MEDS: Artificial Tears* 15 ML BTL BOTH EYES SCH ×3 (08:15→20:04)
[2016-09-20] MEDS: Bacitracin OINTMENT* 0.5% 0.5 oz TUBE TOPICAL SCH (11:53)
[2016-09-20] MEDS: Senna TAB PO SCH (20:04)
[2016-09-21] MEDS: Acetaminophen TAB* 325 MG PO SCH ×5 (00:55→23:25)
[2016-09-21] MEDS: Ibuprofen TAB* 600 MG PO PRN ×2 (03:59→20:47)
[2016-09-21] MEDS: Heparin VIAL(*) 5000 UNITS/ML VIAL (FIVE THOUSAND) SUBCUT SCH ×3 (05:47→21:15)
[2016-09-21] MEDS: Indapamide TAB* 2.5 MG PO SCH (08:08)
[2016-09-21] MEDS: Carbidopa/Levodop 25/100 MG TAB(*) PO SCH ×4 (08:08→20:06)
[2016-09-21] MEDS: Famotidine TAB* 20 MG PO SCH ×2 (08:08→20:06)
[2016-09-21] MEDS: Docusate CAP* 100 MG PO SCH ×2 (08:08→20:25)
[2016-09-21] MEDS: Artificial Tears* 15 ML BTL BOTH EYES SCH ×3 (08:10→21:15)
[2016-09-21] MEDS: Bacitracin OINTMENT* 0.5% 0.5 oz TUBE TOPICAL SCH (09:04)
[2016-09-21] MEDS: Senna TAB PO SCH (20:25)
[2016-09-22] MEDS: Ibuprofen TAB* 600 MG PO PRN (03:40)
[2016-09-22] MEDS: Acetaminophen TAB* 325 MG PO SCH ×2 (05:25→11:42)
[2016-09-22] MEDS: Heparin VIAL(*) 5000 UNITS/ML VIAL (FIVE THOUSAND) SUBCUT SCH (05:27)
[2016-09-22 05:32] VITALS: BP 154/88
[2016-09-22 07:18] LABS: Hematocrit 36 % (35-47); Hemoglobin 12.1 g/dl (12.0-16.0); Mean Corpuscular HGB Conc 34 g/dl (31-36); Mean Corpuscular Hemoglobin 32 pg (27-31); Mean Corpuscular Volume 94 fL (80-97); Mean Platelet Volume 8 um3 (7.4-10.4); Red Blood Count 3.83 10^6/ul (4.0-5.4); Red Cell Distribution Width 14 % (10.5-15); White Blood Count 5.3 10^3/ul (3.5-10.8)
[2016-09-22 07:44] LABS: Albumin 3.5 g/dL (3.2-5.2); BUN/Creatinine Ratio 16.4 (8-20); Calcium 8.9 mg/dL (8.6-10.3); EGFR African American 58.3 (>60); EGFR Non-African American 45.3 (>60); Globulin 2.4 g/dL (2-4); Potassium 3.8 mmol/L (3.5-5.0); Total Bilirubin 0.5 mg/dL (0.2-1.0); Total Protein 5.9 g/dL (6.4-8.9)
[2016-09-22] MEDS: Carbidopa/Levodop 25/100 MG TAB(*) PO SCH ×2 (08:25→11:42)
[2016-09-22] MEDS: Indapamide TAB* 2.5 MG PO SCH (08:25)
[2016-09-22] MEDS: Docusate CAP* 100 MG PO SCH (08:25)
[2016-09-22] MEDS: Famotidine TAB* 20 MG PO SCH (08:25)
[2016-09-22] MEDS: Artificial Tears* 15 ML BTL BOTH EYES SCH (08:27)
[2016-09-22] MEDS: Bacitracin OINTMENT* 0.5% 0.5 oz TUBE TOPICAL SCH (10:50)
--- NOTE | 2016-09-22 20:30 | DS ---
CC: Dr. Parra; Dr. Babcock REHABILITATION DISCHARGE: DATE OF ADMISSION: 09/15/16 DATE OF DISCHARGE: 09/22/16 PRIMARY CARE PROVIDER: Dr. Parra. NEUROLOGIST: Dr. Babcock. REASON FOR ADMISSION: Parkinson disease with fall and sternum fracture. HISTORY OF PRESENT ILLNESS: For full details of her acute hospitalization leading up to her admission, please see the note dictated by myself on 09/15/16. HOSPITAL COURSE: During her time on the PMRU, she was scheduled on acetaminophen and continued to use ibuprofen on an as needed basis for control of pain related to her sternum fracture. She was counseled that if she is having more difficulties in the evening, then she may want to take scheduled doses at bedtime of ibuprofen and Tylenol together. She has received daily dressing changes with bacitracin to her right hand, which has skin tears from the fall that led to her admission. That has been improving over time. She was restarted on Lozol, which she was on for blood pressure management before her admission and she seems to tolerate it. She participated well with physical therapy and at the time of discharge requires a [id number] amount of assistance for bed mobility. She can transfer independently using two-wheeled walker. She can ambulate independently for 150 feet using a two-wheeled walker. She can climb 5 steps using one or two rails independently. She has a home exercise program with an illustrated copy. Her was in for family training the day prior to discharge. She also participated well with occupational therapy and at the time of discharge, requires setup for eating to open packages. She requires a moderate amount of assistance for washing her lower legs and her left arm due to chronic restrictions of her right shoulder and arm range of motion after shoulder replacement. She requires assistance for threading pants and for dressing. She requires supervision with a walker for toilet transfers and toileting and at times assistance for hygiene. She requires assistance for cooking, cleaning, and laundry. Her came in for family training the day prior to discharge and was able to assist her in all these capacities as he was doing this prior to admission. This seemed to be at her baseline. FOLLOWUP: 1. She is to follow up with Dr. Parra in 1 to 2 weeks. 2. She should follow up with Dr. Babcock as well, who is her regular neurologist. 3. A referral has been sent to visiting nurse services for home care including nursing and physical therapy. DISCHARGE MEDICATIONS: 1. Acetaminophen 650 mg q.6 hours. 2. Bacitracin apply topically daily to her right hand. 3. Docusate 100 mg b.i.d. 4. Senna 2 tablets q.h.s. 5. Systane eye drops 1 drop 3 times a day in both eyes. 6. Cranberry 500 mg daily with meal. 7. Cod liver oil 1 cap daily. 8. Calcium with vitamin D 1 tablet daily. 9. Ranitidine 150 mg b.i.d. 10. Glycerin suppository q.12 hours p.r.n. constipation. 11. Indapamide 2.5 mg daily. 12. Sinemet 25/100 two tablets at 0800 and one and a half tablets at 1200, 1600 , and 2000. 13. Betamethasone 0.05% ointment apply topically twice per day as needed for itching. 14. Hydrocortisone 2.5% cream apply topically twice per day as needed. 15. Nystatin cream apply topically twice per day. 16. Ibuprofen 600 mg q.6 hours p.r.n. breakthrough pain. DISCHARGE CONDITION: Good. DISCHARGE DISPOSITION: Home with family assistance and support. DISCHARGE DIAGNOSES: 1. Parkinson disease. 2. Sternum fracture. 3. Hypothyroidism. 4. 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 5. Hyperlipidemia. 6. Hypertension. 7. Peripheral neuropathy. 8. Right hand skin tears secondary to fall prior to admission to the hospital. 9. Recent history of dehydration and syncope. [id number]/[facility] #: [id number] [facility]
== END 2016-09-22 12:00 | disposition home or self-care (01) | DRG 57 ==
LOC: PMRU 11:22
PROVIDERS: ADMIT Physical Medicine & Rehabilitation; ATTEND Physical Medicine & Rehabilitation
PROC: F07Z5ZZ Bed Mobility Treatment (ICD-10-PCS; principal; 2016-09-15)
PROC: F07Z8ZZ Transfer Training Treatment (ICD-10-PCS; 2016-09-15)
PROC: F07Z9ZZ Gait Training/Functional Ambulation Treatment (ICD-10-PCS; 2016-09-15)
PROC: F08Z0ZZ Bathing/Showering Techniques Treatment (ICD-10-PCS; 2016-09-15)
PROC: F08Z1ZZ Dressing Techniques Treatment (ICD-10-PCS; 2016-09-15)
PROC: F08Z3ZZ Feeding/Eating Treatment (ICD-10-PCS; 2016-09-15)
PROC: F08Z2ZZ Grooming/Personal Hygiene Treatment (ICD-10-PCS; 2016-09-15)
DX: G20 Parkinson's disease (principal); G62.9 Polyneuropathy, unspecified; S22.20XD Unspecified fracture of sternum, subsequent encounter for fracture with routine healing; W18.30XD Fall on same level, unspecified, subsequent encounter; E03.9 Hypothyroidism, unspecified; E78.5 Hyperlipidemia, unspecified; I10 Essential (primary) hypertension; K21.9 Gastro-esophageal reflux disease without esophagitis; Z79.1 Long term (current) use of non-steroidal anti-inflammatories (NSAID); Z79.01 Long term (current) use of anticoagulants; Z79.899 Other long term (current) drug therapy; Z88.6 Allergy status to analgesic agent; Z88.1 Allergy status to other antibiotic agents; Z88.2 Allergy status to sulfonamides; Z88.8 Allergy status to other drugs, medicaments and biological substances
CPT/HCPCS: 36415; 80053; 83735; 85025; A9270-GY; J1644

== ENCOUNTER 2017-08-22 12:21 | Inpatient (IN) | payer MEDICARE, BC ==
[2017-08-22] MEDS ORDERED: Ibuprofen TAB* 400 MG PO ONE (12:40)
--- OUTSIDE RECORDS SUMMARY | 2017-08-22 13:09 | XMS REPORT ---
:1940 External Reference #:[id number] Author Organization [facility] Address [address] [address] Phone [phone] Care Team Providers Name Role Phone Matthew Levine MD Care Team Information Business Services Representative Unavailable Edson Parra MD Primary Care Physician Unavailable Payers Type Date Identification Numbers Payment Provider Subscriber Medicare Primary Policy Number: [id number] Medicare Felicia Omer PayID: [id number] [address] [place] [address] Medigap Part B Effective: 2011 Policy Number: BS Facets Felicia Omer [id number] PayID: [id number] [address] [address] [place] [address] Problems Date Description Provider Status Onset: 12/01/2014 Parkinson's disease Iván Babcock M.D. Active Onset: 04/01/2015 Localized, primary osteoarthritis Sloan Armenta M.D. Active Family History Date Family Member(s) Problem(s) Comments General Heart Disease Social History Type Date Description Comments ETOH Use Denies alcohol use Smoking Patient has never smoked Exercise Type/Frequency Does not exercise Allergies, Adverse Reactions, Alerts Date Description Reaction Status Severity Comments 06/12/2012 Betadine active 06/12/2012 vioxx active 06/12/2012 Prevacid active 06/12/2012 Sulfa active 06/12/2012 Erythromycin active 06/12/2012 Cipro active 06/12/2012 Levaquin active 06/12/2012 Doxycycline active 06/12/2012 Aciphex active 06/12/2012 contrast dye active 06/12/2012 Depo-Medrol active 06/12/2012 Vicodin active 06/12/2012 Lorabid active Medications Medication Date Status Form Strength Qnty SIG Indications Ordering Provider Blood Pressure 11/29/ Active Misc 1units measure I95.1 Iván William Monitor Auto 2017 BP lying [place], Inflate down, M.D. seated, and standing once a day Sinemet / Active Tablets 25-100mg 675tab 2 by Iván William 0000 s mouth at [place], 8 in the M.D. morning, 1 1/2 at 12, 4, and 8 at night Systane / Active Solution 0.4-0.3% 60ml one drop Unknown 0000 in each eye twice daily plus as needed every 2hrs Cranberry / Active 1 tab po Unknown 0000 qd Tylenol / Active 325mg prn Unknown 0000 Bengay Arthritis / Active Cream 8-30% as Unknown Formula 0000 directed Alton Dha / Active Capsules 1 by Unknown 0000 mouth qd. Ibuprofen / Active Capsules 200mg 2 tabs po Unknown 0000 2-3 times a day as needed Fludrocortisone 11/29/ Hx Tablets 0.1mg 30tabs 1 po qd I95.1 Iván William Acetate 2017 - Sadiq, 01/23/ M.D. 2017 Melatonin 05/24/ Hx Capsules 1mg 90caps 1 30 G47.00 Iván William 2016 - minute Sadiq, 11/14/ before M.D. 2017 bedtime Voltaren 12/01/ Hx Gel 1% 3tubes States Iván William 2014 - not Sadiq, 05/24/ taking M.D. 2014 Mobic 06/02/ Hx Tablets 15mg 30tabs 1 po qd Iván William 2013 - pc Sadiq, 11/30/ M.D. 2015 Voltaren 11/14/ Hx Gel 1% 1Tube apply to Sloan 2012 - affected Geovany, 06/10/ area four M.D. 2012 times daily Tramadol HCL 07/08/ Hx Tablets 50mg 40tabs 1-2 tabs Sloan 2011 - qid prn Geovany 06/10/ pain M.D. 2012 Zantac 06/12/ Hx Tablets 150mg 60tabs 1 po Iván William 2011 - daily Sadiq, 11/14/ M.D. 2016 Calcium 600 + D 06/12/ Hx Tablets 600-200mg- 60tabs 1 po Iván S. 2011 - Unit daily Sadiq, 06/10/ M.D. 2012 Amantadine HCL 04/16/ Hx Syrup 50mg/5ML 473ml 5 ml qam Iván S. 2011 - for one Sadiq, 06/10/ week then M.D. 2012 10 ml qam Diazepam 10/22/ Hx Tablets 5mg 2tabs Take one Sloan 2011 - tab 1 Young, 06/12/ hour M.D. 2011 prior to procedure . Can take another tab 5minutes before procedure . Cod Liver Oil 00/00/ Hx Capsules 1 po qd Unknown 0000 - 2015 Vitamin C / Hx Capsules 500mg 1 po qd Unknown 0000 - 2014 Amoxicillin / Hx Capsules 500mg 40caps 2 bid for Unknown 0000 - 10 days 2013 Calcium + D3 / Hx Tablets 200-400mg- 60tabs 1 po Unknown 0000 - Unit daily 2014 Indapamide / Hx Tablets 1.25mg 90tabs 1 po qd Unknown 0000 - 2016 Tramadol HCL 00/00/ Hx Tablets 50mg 1-2 Unknown 0000 - tablets 02/10/ every 6 2015 hours as needed Advil 00/00/ Hx Unknown 0000 - 2014 Lozol /00/ Hx qd Unknown 0000 - 2016 Levothyroxine 00/ Hx Tablets 25mcg 1 by Unknown Sodium 0000 - mouth 03/26/ every day 2015 Tramadol HCL 00/00/ Hx Tablets 50mg take 1 Unknown 0000 - tablet by mouth 2015 every 4 to 6 hours if needed --Max 4/Day Meloxicam 00/ Hx Tablets 7.5mg 1 tab po Breiman, 0000 - qd Edson 2016 Medications Administered in Office Medication Date Status Form Strength Qnty SIG Indications Ordering Provider Synvisc Or Administered Injection Loren Synvisc-One Joana Lerma M.D. Injection 1 MG Vital Signs Date Vital Result Comment 07/25/2017 Height 67 inches 5'7" Weight 180.00 lb Heart Rate 80 /min BP Systolic Sitting 128 mmHg BP Diastolic Sitting 84 mmHg Respiratory Rate 16 /min BMI (Body Mass Index) 28.2 kg/m2 01/23/2017 Height 67 inches 5'7" Weight 180.00 lb Heart Rate 60 /min BP Systolic Sitting 128 mmHg BP Diastolic Sitting 88 mmHg Respiratory Rate 14 /min BMI (Body Mass Index) 28.2 kg/m2 11/29/2016 Height 67 inches 5'7" Weight 180.00 lb Heart Rate 71 /min BP Systolic Sitting 112 mmHg BP Diastolic Sitting 78 mmHg Respiratory Rate 17 /min BMI (Body Mass Index) 28.2 kg/m2 05/24/2016 Height 67 inches 5'7" Weight 180.00 lb Heart Rate 90 /min BP Systolic Sitting 128 mmHg BP Diastolic Sitting 78 mmHg BMI (Body Mass Index) 28.2 kg/m2 03/20/2016 Height 67 inches 5'7" Weight 180.00 lb Pain Level 4 BMI (Body Mass Index) 28.2 kg/m2 03/13/2016 Height 67 inches 5'7" Weight 180.00 lb Respiratory Rate 16 /min Pain Level 4 BMI (Body Mass Index) 28.2 kg/m2 02/23/2016 Height 67 inches 5'7" Weight 180.00 lb Heart Rate 79 /min BP Systolic 146 mmHg BP Diastolic 78 mmHg BMI (Body Mass Index) 28.2 kg/m2 01/07/2016 Height 66.5 inches 5'6.50" Weight 180.00 lb Heart Rate 72 /min BP Systolic Sitting 112 mmHg BP Diastolic Sitting 70 mmHg Respiratory Rate 14 /min BMI (Body Mass Index) 28.6 kg/m2 05/25/2015 Height 66.5 inches 5'6.50" Weight 180.00 lb Heart Rate 76 /min BP Systolic Sitting 120 mmHg BP Diastolic Sitting 80 mmHg Respiratory Rate 14 /min BMI (Body Mass Index) 28.6 kg/m2 04/01/2015 Height 66.5 inches 5'6.50" Weight 180.00 lb Pain Level 9 BMI (Body Mass Index) 28.6 kg/m2 03/02/2015 Height 66.5 inches 5'6.50" Weight 180.00 lb Pain Level 9 BMI (Body Mass Index) 28.6 kg/m2 12/31/2014 Height 66.5 inches 5'6.50" Weight 180.00 lb Heart Rate 94 /min BP Systolic 133 mmHg BP Diastolic 77 mmHg BMI (Body Mass Index) 28.6 kg/m2 12/01/2014 Height 66.5 inches 5'6.50" Weight 184.00 lb Heart Rate 60 /min BP Systolic Sitting 134 mmHg BP Diastolic Sitting 74 mmHg Respiratory Rate 16 /min BMI (Body Mass Index) 29.3 kg/m2 06/02/2014 Height 66.5 inches 5'6.50" Weight 182.00 lb Heart Rate 88 /min BP Systolic Sitting 136 mmHg BP Diastolic Sitting 78 mmHg Respiratory Rate 16 /min BMI (Body Mass Index) 28.9 kg/m2 12/03/2013 Height 66.5 inches 5'6.50" Weight 178.00 lb Heart Rate 84 /min BP Systolic Sitting 128 mmHg BP Diastolic Sitting 72 mmHg Respiratory Rate 16 /min BMI (Body Mass Index) 28.3 kg/m2 06/10/2013 Heart Rate 96 /min BP Systolic Sitting 122 mmHg BP Diastolic Sitting 78 mmHg Respiratory Rate 18 /min 06/12/2012 Heart Rate 72 /min BP Systolic 132 mmHg BP Diastolic 80 mmHg Respiratory Rate 14 /min 06/14/2011 Height 66.50 inches 5'6.50" Heart Rate 97 /min BP Systolic 128 mmHg BP Diastolic 81 mmHg Results Description No Information Procedures Date CPT Code Description Status 03/13/2016 78134 Inject/Drain Joint/Bursa Major Completed 11/14/2012 96676 Rad Exam; Elbow, Comp Completed 09/27/2012 79100 Rad Exam; Elbow, Comp Completed 09/10/2012 71707 Rad Exam; Hand Comp Completed 10/23/2011 94159 Rad Shoulder Comp, Min. 2 Views Completed 07/10/2008 62348 EKG, Interpretation Only Completed 07/10/2008 13746 EKG, Interpretation Only Completed Encounters Type Date Location Provider CPT E/M Dx Office Visit 01/23/2017 1:15p [facility] Iván Babcock 19963 G20 Services Of Carly Mullen I95.1 M17.9 Office Visit 11/29/2016 11:45a [facility] Babcock 64295 G20 Services Of Carly Mullen I95.1 Office Visit 09/15/2016 11:01a Rosalba Stubbs,[place] [address] R55 Hospitalists K21.9 G20 S22.22xA Office Visit 09/14/2016 11:00a Rosalba Stubbs,[place] [address] R55 Hospitalists K21.9 G20 S22.22xA Office Visit 09/13/2016 10:59a [facility], [place] [address] R55 Hospitalists G20 K21.9 S22.22xA Office Visit 09/12/2016 10:59a [facility], Daniel Chad, 37404 R55 Hospitalists N.P. G20 K21.9 Office Visit 05/24/2016 11:00a [facility] Iván Babcock, 99448 M25.562 Services Of Carly Mullen G20 M25.511 G47.00 Office Visit 03/20/2016 1:15p [facility] Of Loren Lerma M.D. 89935 M25.562 C.M.A. M17.12 M25.462 Office Visit 02/23/2016 8:00a [facility] Loren Lerma M.D. 88830 M25.562 C.M.A. M17.12 Office Visit 01/07/2016 11:30a [facility] Iván William 36520 G20 Services Of Carly Babcock M.D. Office Visit 10/26/2015 3:10p [facility] Iván William 09976 G20 Paz Babcock Office Visit 10/26/2015 3:44p [facility] Boni [facility]aver, 17632 N30.00 Hospitalists Paz E03.9 G20 Office [facility]/24/2015 [facility]aver 82402 N30.00 Hospitalists Paz E03.9 G20 Office Visit 05/25/2015 2:45p [facility] Iván Babcock 27084 G20 Services Of Carly Mullen Office Visit 04/01/2015 1:40p [facility] Of Sloan Armenta M.D. 31023 715.16 C.M.A. Office Visit 03/02/2015 1:45p [facility] Sloan Armenta M.D. 67417 715.16 C.M.A. Office Visit 12/31/2014 2:50p [facility] Of Sloan Armenta M.D. 65821 715.16 C.M.A. Office Visit 12/01/2014 1:45p [facility] Iván Babcock, 79591 332.0 Services Of [employer] M.D. 719.46 Office Visit 06/02/2014 1:45p [facility] Iván Babcock, 37850 332.0 Services Of [employer] M.D. Office Visit 12/03/2013 1:15p [facility] Iván Babcock, 76633 332.0 Services Of [employer] M.D. Office Visit 06/10/2013 11:45a [facility] Iván Babcock, 64853 332.0 Services Of [employer] M.D. 353.0 Office Visit 01/14/2013 2:00p [facility] Of Sloan Armenta M.D. 24020 726.2 C.M.A. 719.46 Office Visit 12/10/2012 11:45a [facility] Iván Babcock, 60162 332.0 Services Of Carly Mullen 719.41 Office Visit 11/14/2012 2:30p [facility] Of Sloan Armenta M.D. 42476 923.11 C.M.A. 840.8 Office Visit 09/27/2012 2:15p [facility] Sloan Armenta M.D. 62922 923.00 C.M.A. Office Visit 09/10/2012 10:30a [facility] Of Sloan Armenta M.D. 80140 840.8 C.M.A. 923.20 Office Visit 07/30/2012 9:45a [facility] Of Sloan Armenta M.D. 55638 715.36 C.M.A. Office Visit 07/08/2012 9:45a [facility] Of Sloan Armenta M.D. 17878 840.8 C.M.A. Office Visit 06/12/2012 10:45a [facility] Iván Babcock, 62970 332.0 Services Of Carly M.D. Office Visit 05/28/2012 11:00a [facility] Of Sloan Armenta M.D. 68372 716.96 C.M.A. Office Visit 04/19/2012 1:00p [facility] Of Jane Bishop, 67205 716.96 C.M.AJavid RPA-C Office Visit 04/16/2012 4:15p [facility] Iván Babcock, 18029 332.0 Services Of Carly Mullen 722.4 719.46 Office Visit 11/03/2011 9:45a [facility] Of Sloan Armenta M.D. 21051 840.5 C.M.A. Office Visit 10/23/2011 10:30a [facility] Of Sloan Armenta M.D. 42523 840.5 C.M.A. Office Visit 06/14/2011 3:00p [facility] Of Walt Grewal 74918 716.96 C.M.AJavid Palacios R.P.A.-C Office Visit 07/06/2008 1:30p [facility] Marshall Parker, 24515 847.0 Of Carly Mullen Plan of Care Future Appointment(s):02/05/2018 9:45 am - Iván Babcock M.D. at [facility]07/25/2017 - Iván Babcock M.D.G62.9 Polyneuropathy, unspecifiedNew Labs:Hemoglobin A1c (Glyco HGB)Lyme Disease SerologyTSH (Thyroid Stim Horm)Vitamin D92Rvvxzek ElectrophoresisComp Metabolic PanelFollow up:6 [id number] Parkinson's disease
--- NOTE | 2017-08-22 13:27 | RAD ---
Indication: Weakness. Fall. Comparison: September 12, 2016 Technique: Noncontrast CT vertex of skull through foramen magnum. Report: Mild to moderate prominence of the cerebral sulci and cerebellar fissures reflecting involutional change. Unremarkable ventricles and basal cisterns. Negative for ballesteros matter white matter obscuration, intra or extra-axial hemorrhage, or mass effect. Unremarkable partially visualized orbital contents. Negative for calvarial or skull base fracture or suspicious focal osseous lesion. Clear visualized paranasal sinuses and mastoid air spaces. Negative for scalp hematoma. IMPRESSION: 1. No traumatic injury or acute intracranial process evident. 2. Mild to moderate involutional change similar to the prior exam.
--- NOTE | 2017-08-22 13:31 | RAD ---
Indication: Neck injury, trauma. CT of the cervical spine was obtained in the axial plane. Sagittal, axial and coronal 3-D reconstructive images were obtained. The skull base demonstrates mastoid air cells to be well aerated. Skull base demonstrates no fracture. Degenerative changes of the atlantoaxial joint is noted. The vertebral bodies appear normal in height. No fracture is noted. There is grade 1 spondylolisthesis of C4 on 5. Disc space narrowing at C5-C6 and C6-C7 is noted. No fracture is identified IMPRESSION: No fracture of the cervical spine is noted. Degenerative changes of the atlantoaxial joint is noted. Degenerative disc disease at C5-C6 is noted. Mild grade 1 spondylolisthesis of C4 on 5 is noted.
[2017-08-22 13:41] LABS: ABS Basophils 0 10^3/ul (0-0.2); ABS Eosinophils 0 10^3/ul (0-0.6); ABS Lymphocytes 0.2 10^3/ul (1.0-4.8); ABS Monocytes 0.3 10^3/ul (0-0.8); ABS Neutrophils 4.2 10^3/ul (1.5-7.7); ABS Nucleated RBC 0 10^3/ul; Eosinophil % 0.1 % (0-6); Hematocrit 38 % (35-47); Lymphocyte % 4.6 % (25-47); Mean Corpuscular HGB Conc 35 g/dl (31-36); Mean Corpuscular Hemoglobin 32 pg (27-31); Mean Corpuscular Volume 93 fL (80-97); Mean Platelet Volume 7 um3 (7.4-10.4); Nucleated Red Blood Cells % 0.1; Platelet Count 133 10^3/ul (150-450); Red Blood Count 4.06 10^6/ul (4.0-5.4); Red Cell Distribution Width 14 % (10.5-15); White Blood Count 4.7 10^3/ul (3.5-10.8)
[2017-08-22 13:48] LABS: INR 0.87 (0.77-1.02)
[2017-08-22 13:54] LABS: EGFR Non-African American 36.7 (>60)
[2017-08-22 13:55] LABS: Urine Appearance Cloudy; Urine Blood Negative (Negative); Urine Color Yellow; Urine Ketones Trace (Negative); Urine Protein Negative (Negative); Urine Specific Gravity 1.016 (1.010-1.030); Urine Urobilinogen Negative (Negative)
--- NOTE | 2017-08-22 14:26 | RAD ---
Indication: Fall. Comparison: September 12, 2016 Technique: Sitting AP chest 1400 hours Report: Clear lungs and pleural spaces. Negative for pneumothorax. Negative for cardiomegaly. LEFT epicardial fat pad noted. Unremarkable central pulmonary vasculature. Prosthetic RIGHT glenohumeral joint. No thoracic fracture visible. Unchanged moderate RIGHT convex curve centered at the lower thoracic spine. Gallbladder fossa level surgical clips. IMPRESSION: No evidence for acute intrathoracic disease.
--- NOTE | 2017-08-22 14:26 | RAD ---
INDICATION: Fall COMPARISON: None TECHNIQUE: A single AP view of the pelvis is submitted. FINDINGS: The bony structures are osteopenic. No acute pelvic fracture is seen. The SI joints and symphysis are intact. The hips articulate normally. The proximal femurs appear normal. The soft tissue elements are normal. IMPRESSION: NO ACUTE BONY FINDINGS.
--- NOTE | 2017-08-22 14:28 | RAD ---
Indication: RIGHT knee pain post fall. Comparison: February 08, 2016 radiographs. Technique: RIGHT knee: AP, tunnel, crosstable lateral, sunrise views. Report: Normal articular alignment. Negative for effusion or fracture. No significant arthropathic change evident. Unremarkable soft tissue contours. IMPRESSION: No radiographic evidence for traumatic RIGHT knee injury. Negative exam.
[2017-08-22] MEDS ORDERED: cefTRIAXone(*) 1 GM in NS 0.9% 50 ML* 50 ML IVPB ONE (16:31)
--- NOTE | 2017-08-22 18:50 | ED ---
Rickey Kohler Angela, scribed for Ric Ferrera MD on 08/22/17 at 1247 . Adult Trauma - HPI Summary HPI Summary: This pt is a 77 y/o female, accompanied by her , presenting to [facility] via EMS c/o generalized weakness and fall today. Pt c/o bilateral knee pain, R worse than L, but notes she had this pain prior to her fall today. reports pt has a hard time standing up and ambulating. Today while trying to sit down pt fell towards a wall. notes he tried to hold the pt but couldn't and pt fell. She states she hit her L breast and knees. Pt denies head strike or LOC. She denies headache. Pt notes her has the GI bug. She denies nausea, vomiting, and diarrhea. Pt reports she has not urinated much today but attributes it to not drinking much today. She states she is afraid of going to the bathroom often. Per , pt never goes to the bathroom by herself due to Parkinson's disease. Pt has fallen before but has only fallen once this week. She reports yesterday, she was doing exercises with her aide and today just woke up with generalized weakness. Pt usually takes ibuprofen for the pain. She reports she is safe at home and has an aide who comes and help her at home from 7am - 7pm, and again from 9:30 pm - 12:30 am. Additionally pt has a lady who goes to clean her house. PMHx includes Parkinson's disease, R shoulder replacement, plate on R wrist. Pt is not on any anticoagulants. - History of Current Complaint Chief Complaint: EDWeakness Stated Complaint: WEAKNESS Hx Obtained From: Patient Mechanism of Injury: Fall Ambulatory at the Scene: Yes Loss of Consciousness: no loss of consciousness Onset/Duration: Started Hours Ago, Traumatic, Still Present Onset of Pain: Immediate Current Severity: Severe Pain Intensity: 8 Pain Scale Used: 0-10 Numeric Location: Other - bilateral knees Aggravating Factor(s): Movement Alleviating Factor(s): Nothing Associated Signs & Symptoms: Positive: Numbness/Weakness - generalized weakness. Negative: Fever, Nausea/Vomiting, Loss of Consciousness, Memory Loss - Additional Pertinent History Primary Care Physician: [facility] - Allergy/Home Medications Allergies/Adverse Reactions: Allergies Allergy/AdvReac Type Severity Reaction Status Date / Time Ciprofloxacin [From Cipro] Allergy Intermediate RASH/HIVES Verified 02/10/16 13: 38 Erythromycin Allergy Intermediate GI Upset Verified 02/10/16 13:38 Povidone Iodine Allergy Intermediate Rash Verified 02/10/16 13:38 [From Betadine] Rabeprazole [From Aciphex] Allergy Intermediate MIGRAINE Verified 02/10/16 13:38 Acetaminophen [From Vicodin] Allergy Mild Rash Verified 02/10/16 13:38 Doxycycline Allergy Mild Rash Verified 02/10/16 13:38 Hydrocodone [From Vicodin] Allergy Mild Rash Verified 02/10/16 13:38 Iodinated Contrast Media Allergy Mild Hives Verified 02/10/16 13:38 [CONTRAST DYE] Lansoprazole [From Prevacid] Allergy Mild SKIN Verified 02/10/16 13:38 IRRITATION Levofloxacin [From Levaquin] Allergy Mild Rash Verified 02/10/16 13:38 Rofecoxib [From Vioxx] Allergy Mild SKIN Verified 02/10/16 13:38 IRRITATION Sulfa Drugs Allergy Unknown Unknown Verified 02/10/16 13:38 Reaction Details Loracarbef Allergy See Comment Verified 09/12/16 15:18 Home Medications: Home Medications Acetaminophen TAB* [Tylenol TAB*] 325 mg PO Q6H PRN 08/22/17 [History Confirmed 08/22/17] Rwedbpp-Osmzple-Huwtpm Salicyl [Bengay Ultra Strength 4-10-30 %] 1 cre TOPICAL BID PRN 08/22/17 [History Confirmed 08/22/17] Gabapentin CAP(*) [Neurontin 100 mg CAP(*)] 100 mg PO BID 08/22/17 [History Confirmed 08/22/17] PMH/Surg Hx/FS Hx/Imm Hx Endocrine/Hematology History: Reports: Hx Anticoagulant Therapy, Hx Thyroid Disease - hypothyroidism Denies: Hx Diabetes Cardiovascular History: Reports: Hx Hypercholesterolemia, Hx Hypertension Denies: Hx Pacemaker/ICD Respiratory History: Denies: Hx Asthma, Hx Chronic Obstructive Pulmonary Disease (COPD) GI History: Reports: Hx Irritable Bowel - Hx Chronic Diarrhea Musculoskeletal History: Reports: Hx Arthritis, Hx Back Problems, Hx Orthopedic Injury, Other Musculoskeletal History - R Shoulder Repair Denies: Hx Rheumatoid Arthritis, Hx Osteoporosis Sensory History: Reports: Hx Contacts or Glasses Denies: Hx Hearing Aid Opthamlomology History: Reports: Hx Contacts or Glasses Neurological History: Reports: Hx Headaches, Other Neuro Impairments/Disorders - Parkinson's Disease Psychiatric History: Reports: Hx Anxiety Denies: Hx Panic Disorder - Cancer History Hx Chemotherapy: No Hx Radiation Therapy: No - Surgical History Surgery Procedure, Year, and Place: rt shoulder prosthesis-2009, RT AND LT BREAST BX, HYSTERECTOMY, CHO[place], RT [place] ORTHOPLASTY SHOULDER, SHOULDER MANIPULATION,ORIF RT WRIST WITH PLATING Hx Anesthesia Reactions: No Infectious Disease History: No Infectious Disease History: Denies: Traveled Outside the [place] in Last 30 Days - Family History Known Family History: Positive: Hypertension - Social History Alcohol Use: None Hx Substance Use: Yes Substance Use Type: Reports: None, Prescribed Hx Tobacco Use: No Smoking Status (MU): Never Smoked Tobacco Review of Systems Negative: Fever, Chills Eyes: Negative ENT: Negative Negative: Vomiting, Diarrhea, Nausea Genitourinary: Other - decreased urinary output secondary to decreased fluid intake Musculoskeletal: Other - bilateral knee pain Neurological: Other - No LOC Positive: Weakness - generalized. Negative: Headache All Other Systems Reviewed And Are Negative: Yes Physical Exam - Summary Physical Exam Summary: Appearance: Well-appearing, Well-nourished Skin: Warm Eyes: Normal ENT: Normal. Moist mucous membranes. No obvious signs of trauma. Neck: Limited ROM secondary to Parkinson's disease. Nontender. Respiratory: Clear to auscultation Cardiovascular: Normal, S1, S2. Chest:No tenderness of chest wall. No obvious trauma. Abdomen: Soft, nontender Bowel: Present Musculoskeletal: Strength/ROM Intact. Mild contractions of UE consistent with baseline and consistent with history. Mild tenderness to palpation of left hip. Neurological: Normal, A&Ox3. Appropriate and alert. Mild weakness of right arm consistent with baseline. Psychiatric: Normal Triage Information Reviewed: Yes Vital Signs On Initial Exam: Initial Vitals Temp Pulse Resp BP Pulse Ox 98.9 F 92 20 144/68 100 08/22/17 12:30 08/22/17 12:30 08/22/17 12:30 08/22/17 12:30 08/22/17 12:30 Vital Signs Reviewed: Yes - Halls Coma Scale Best Eye Response: 4 - Spontaneous Best Motor Response: 6 - Obeys Commands Best Verbal Response: 5 - Oriented Diagnostics - Vital Signs Vital Signs Temp Pulse Resp BP Pulse Ox 08/22/17 12:30 98.9 F 92 20 144/68 100 - Laboratory Lab Results: Lab Results 08/22/17 08/22/17 08/22/17 Range/Units 13:29 13:29 13:29 WBC 4.7 (3.5-10.8) 10^3/ul RBC 4.06 (4.0-5.4) 10^6/ul Hgb 13.0 (12.0-16.0) g/dl Hct 38 (35-47) % MCV 93 (80-97) fL MCH 32 H (27-31) pg MCHC 35 (31-36) g/dl RDW 14 (10.5-15) % Plt Count 133 L (150-450) 10^3/ul MPV 7 L (7.4-10.4) um3 Neut % (Auto) 89.1 H (38-83) % Lymph % (Auto) 4.6 L (25-47) % Perkins % (Auto) 6.1 (1-9) % Eos % (Auto) 0.1 (0-6) % Baso % (Auto) 0.1 (0-2) % Absolute Neuts (auto) 4.2 (1.5-7.7) 10^3/ul Absolute Lymphs (auto) 0.2 L (1.0-4.8) 10^3/ul Absolute Monos (auto) 0.3 (0-0.8) 10^3/ul Absolute Eos (auto) 0 (0-0.6) 10^3/ul Absolute Basos (auto) 0 (0-0.2) 10^3/ul Absolute Nucleated RBC 0 10^3/ul Nucleated RBC % 0.1 INR (Anticoag Therapy) 0.87 (0.77-1.02) Sodium 135 (133-145) mmol/L Potassium 3.7 (3.5-5.0) mmol/L Chloride 102 (101-111) mmol/L Carbon Dioxide 26 (22-32) mmol/L Anion Gap 7 (2-11) mmol/L BUN 33 H (6-24) mg/dL Creatinine 1.39 H (0.51-0.95) mg/dL Est GFR ( Amer) 47.2 (>60) Est GFR (Non-Af Amer) 36.7 (>60) BUN/Creatinine Ratio 23.7 H (8-20) Glucose 123 H (70-100) mg/dL Lactic Acid (0.5-2.0) mmol/L Calcium 8.6 (8.6-10.3) mg/dL Total Bilirubin 1.20 H (0.2-1.0) mg/dL AST 13 (13-39) U/L ALT 3 L (7-52) U/L Alkaline Phosphatase 53 (34-104) U/L Total Creatine Kinase 29 (10-223) U/L Troponin I 0.01 (<0.04) ng/mL Total Protein 5.9 L (6.4-8.9) g/dL Albumin 3.4 (3.2-5.2) g/dL Globulin 2.5 (2-4) g/dL Albumin/Globulin Ratio 1.4 (1-3) Urine Color Urine Appearance Urine pH (5-9) Ur Specific [place] (1.010-1.030) Urine Protein (Negative) Urine Ketones (Negative) Urine Blood (Negative) Urine Nitrate (Negative) Urine Bilirubin (Negative) Urine Urobilinogen (Negative) Ur Leukocyte Esterase (Negative) Urine WBC (Auto) (Absent) Urine RBC (Auto) (Absent) Urine Bacteria (Absent) Hyaline Casts (Absent) Urine Glucose (Negative) Urine Ascorbic Acid (Negative) Blood Type Antibody Screen 08/22/17 08/22/17 08/22/17 Range/Units 13:29 13:29 13:40 WBC (3.5-10.8) 10^3/ul RBC (4.0-5.4) 10^6/ul Hgb (12.0-16.0) g/dl Hct (35-47) % MCV (80-97) fL MCH (27-31) pg MCHC (31-36) g/dl RDW (10.5-15) % Plt Count (150-450) 10^3/ul MPV (7.4-10.4) um3 Neut % (Auto) (38-83) % Lymph % (Auto) (25-47) % Perkins % (Auto) (1-9) % Eos % (Auto) (0-6) % Baso % (Auto) (0-2) % Absolute Neuts (auto) (1.5-7.7) 10^3/ul Absolute Lymphs (auto) (1.0-4.8) 10^3/ul Absolute Monos (auto) (0-0.8) 10^3/ul Absolute Eos (auto) (0-0.6) 10^3/ul Absolute Basos (auto) (0-0.2) 10^3/ul Absolute Nucleated RBC 10^3/ul Nucleated RBC % INR (Anticoag Therapy) (0.77-1.02) Sodium (133-145) mmol/L Potassium (3.5-5.0) mmol/L Chloride (101-111) mmol/L Carbon Dioxide (22-32) mmol/L Anion Gap (2-11) mmol/L BUN (6-24) mg/dL Creatinine (0.51-0.95) mg/dL Est GFR ( Amer) (>60) Est GFR (Non-Af Amer) (>60) BUN/Creatinine Ratio (8-20) Glucose (70-100) mg/dL Lactic Acid 1.0 (0.5-2.0) mmol/L Calcium (8.6-10.3) mg/dL Total Bilirubin (0.2-1.0) mg/dL AST (13-39) U/L ALT (7-52) U/L Alkaline Phosphatase (34-104) U/L Total Creatine Kinase (10-223) U/L Troponin I (<0.04) ng/mL Total Protein (6.4-8.9) g/dL Albumin (3.2-5.2) g/dL Globulin (2-4) g/dL Albumin/Globulin Ratio (1-3) Urine Color Yellow Urine Appearance Cloudy Urine pH 5.0 (5-9) Ur Specific [place] 1.016 (1.010-1.030) Urine Protein Negative (Negative) Urine Ketones Trace H (Negative) Urine Blood Negative (Negative) Urine Nitrate Positive H (Negative) Urine Bilirubin Negative (Negative) Urine Urobilinogen Negative (Negative) Ur Leukocyte Esterase 2+ H (Negative) Urine WBC (Auto) 3+(>20/hpf) H (Absent) Urine RBC (Auto) Trace(0-2/hpf) (Absent) Urine Bacteria 1+ H (Absent) Hyaline Casts Present H (Absent) Urine Glucose Negative (Negative) Urine Ascorbic Acid * H (Negative) Blood Type B Negative Antibody Screen Negative Result Diagrams: 08/22/17 13:29 08/22/17 13:29 Lab Statement: Any lab studies that have been ordered have been reviewed, and results considered in the medical decision making process. - Radiology Chest XR Xray Interpretation: No Acute Changes - IMPRESSION: No evidence for acute intrathoracic disease. Dr. Ferrera has reviewed this radiology report. Radiology Interpretation Completed By: Radiologist Right knee XR Xray Interpretation: No Acute Changes - IMPRESSION: No radiographic evidence for traumatic RIGHT knee injury. Negative exam. Dr. Ferrera has reviewed this radiology report. Radiology Interpretation Completed By: Radiologist Pelvis XR Xray Interpretation: No Acute Changes - IMPRESSION: No acute bony findings. Dr. Ferrera has reviewed this radiology report. Radiology Interpretation Completed By: Radiologist - CT Brain CT CT Interpretation: No Acute Changes - IMPRESSION: 1. No traumatic injury or acute intracranial process evident. 2. Mild to moderate involutional change similar to the prior exam. Dr. Ferrera has reviewed this radiology report. CT Interpretation Completed By: Radiologist Cervical spine CT CT Interpretation: No Acute Changes - IMPRESSION: No fracture of the cervical spine is noted. Degenerative changes of the atlantoaxial joint is noted. Degenerative disc disease at C5-C6 is noted. Mild grade 1 spondylolisthesis of C4 on [address] Ferrera has reviewed this radiology report. CT Interpretation Completed By: Radiologist - EKG 12:45 Cardiac Rate: NL EKG Rhythm: Sinus Rhythm - at 88 bpm EKG Interpretation: Abnormal R wave progression. Adult Trauma Course/Dx - Course Assessment/Plan: pt treated for UTI, imaging shows no acute abnormalities, we attempted to get patient to ambulate with assistance and [facility]. Admitted for further treatment. - Diagnoses Provider Diagnoses: Unsteady gait, UTI (urinary tract infection) Discharge - Discharge Plan Condition: Stable Disposition: ADMITTED TO [facility] Referrals: Edson Parra MD [Primary Care Provider] - The documentation as recorded by the Rickey norton Angela accurately reflects the service I personally performed and the decisions made by Iban fong Dong, MD.
[2017-08-22] MEDS ORDERED: Hydrocortisone 1% CREAM* 30 GM TUBE TOPICAL PRN (20:58)
[2017-08-22] MEDS ORDERED: Clobetasol 0.05% OINT* 30 GM TUBE TOPICAL PRN (20:58)
[2017-08-22] MEDS ORDERED: Acetaminophen TAB* 325 MG PO PRN (20:58)
[2017-08-22] MEDS ORDERED: Magnesium Hydroxide LIQ* 30 ML UDC PO PRN (20:59)
[2017-08-22] MEDS ORDERED: Senna TAB PO PRN (20:59)
[2017-08-22] MEDS ORDERED: Al Hydrox/Mg Hydrox/Simet LIQ* 30 ML UDC PO PRN (20:59)
[2017-08-22] MEDS ORDERED: Docusate CAP* 100 MG PO PRN (20:59)
[2017-08-22] MEDS ORDERED: Ondansetron INJ* 2 MG/ML VIAL IV PRN (20:59)
[2017-08-22] MEDS ORDERED: Gabapentin CAP(*) 100 MG PO SCH (21:00)
[2017-08-22] MEDS ORDERED: Artificial Tears* 15 ML BTL BOTH EYES PRN (21:04)
[2017-08-22] MEDS: Heparin VIAL(*) 5000 UNITS/ML VIAL (FIVE THOUSAND) SUBCUT SCH (23:04)
[2017-08-22] MEDS: NS 0.9% 1000 ML* 1,000 ML IV SCH (23:05)
--- NOTE | 2017-08-22 23:27 | HP ---
CC: Edson Parra MD * HISTORY AND PHYSICAL: DATE OF ADMISSION: 08/22/17 TIME OF EVALUATION: 2100. PRIMARY CARE PHYSICIAN: Edson Parra MD CHIEF COMPLAINT: Weakness. HISTORY OF PRESENT ILLNESS: This is a 77-year-old female with a past medical history of Parkinson's who was in her normal state of health yesterday, where she normally walks with a walker. She said she woke up this morning, was unable to walk. She is unable to really describe why, but she just could not get up and go. No weakness, no pain. She does have chronic pain in her knees. She has had a decrease in appetite. She denies any urinary symptoms, no abdominal discomfort. She said she had diarrhea the other day after taking a laxative. No nausea, vomiting. No chest pain. No shortness of breath. No changes in her weight. It is unclear what medications she takes. She does state that she is having some shortness of breath when she walks and feels like this is part of why she has a hard time walking. She did state yesterday, she fell on to the wall trying to get up off the toilet, but did not hurt herself, lose consciousness and no falls today. Otherwise, remainder of review of systems negative. In the emergency room, the patient had labs and imaging that were tested and she was unable to ambulate and she was referred to the hospital service for further evaluation. In the emergency room, she was given ceftriaxone 1 g and ibuprofen 400 mg x1. PAST MEDICAL HISTORY: 1. Admission on 09/12/16 for syncopal fall episode. 2. Parkinson's. 3. Arthritis. 4. History of dermatitis. MEDICATIONS: 1. Gabapentin 100 mg p.o. b.i.d. 2. Bengay topical b.i.d. as needed. 3. Cranberry 500 mg p.o. daily. 4. Carbidopa/levodopa 25/100 two tabs p.o. at 8 a.m. 5. Carbidopa/levodopa 25/100 one and half tabs p.o. at 1200, 1600, and 2000. 6. Systane 0.4-0.3% eyedrops one drop both eyes as needed. 7. Tylenol 325 every 6 hours as needed. 8. Hydrocortisone cream 2.5 topical twice a day as needed. 9. Betamethasone one application topical b.i.d. as needed. 10. Ranitidine 150 mg p.o. b.i.d. ALLERGIES: CIPROFLOXACIN, rash; ERYTHROMYCIN, GI upset; IODINE; RABEPRAZOLE, migraine; TYLENOL from the VICODIN gives rash; DOXYCYCLINE; HYDROCODONE; CONTRAST; LANSOPRAZOLE; LEVOFLOXACIN; VIOXX; SULFA; LORACARBEF. FAMILY HISTORY: Reviewed, noncontributory. SOCIAL HISTORY: The patient lives at home with her , Layo and appears she has a visiting nursing services. She normally ambulates with a walker. No history of tobacco or illicit drug use. She is a full code and this was confirmed. REVIEW OF SYSTEMS: A 14-point review of systems as mentioned in the HPI, otherwise negative. PHYSICAL EXAMINATION GENERAL: No acute distress, resting comfortably. Her has already left for the evening. VITAL SIGNS: Temp 98.9, pulse rate 92, respiratory rate 20, oxygen saturation 97 % on room air, blood pressure 132/49. HEENT: Head: Normocephalic. Pupils equal and reactive, anicteric. Oropharynx : Mucous membranes dry. NECK: Supple. No lymphadenopathy. RESPIRATORY: Diminished breath sounds. No wheezing, rhonchi, or rales. CARDIAC: Regular rate and rhythm. Soft systolic murmur heard throughout. ABDOMEN: Morbidly obese, soft, nontender. EXTREMITIES: No clubbing, cyanosis or edema. +1 DPs. NEUROLOGIC: Alert and oriented x2, oriented to self and place. Generalized symmetric weakness of her lower extremities, more pronounced strength in her upper extremities. LABORATORY DATA: White count 4.7, hemoglobin 13, hematocrit 38, platelets 133 , INR is 0.87. Sodium 135, potassium 3.7, chloride 102, bicarb 26, BUN 33, creatinine 1.39. Urine shows positive nitrite, trace ketones, +2 leukocytes, white cells, negative blood. RADIOGRAPHIC DATA: Chest x-ray shows no evidence for acute disease. Pelvis, no acute bony findings. Knee x-ray, no radiographic evidence of trauma to the right knee. Negative exam. Cervical spine CT, no fracture of the cervical spine. Brain CT, no traumatic injury, acute intracranial process. Mild to moderate involutional change similar to the prior exam. ASSESSMENT AND PLAN: This is a 77-year-old female with past medical history of Parkinson's who is unable to ambulate this morning, found to have weakness. 1. Weakness. Assessment, unable to ambulate. I suspect this is likely secondary to a urinary tract infection and dehydration. Plan, we will place her on gentle fluids. Continue ceftriaxone and followup urine culture. We will order PT consult to evaluate if the patient is a candidate for subacute rehab. 2. Chronic medical problems, Parkinson's. We will resume her home medications as prescribed. We will change her ranitidine to famotidine daily. 3. Acute kidney injury, suspect this is secondary to dehydration. We will give her fluid and recheck her labs in the morning. 4. DVT prophylaxis. The patient's score is moderate risk. We will place her on heparin subcu t.i.d. 5. Code status: Full code. 6. FEN: We will place her on regular diet. PATIENT TIME: Greater than 50 minutes were spent doing history and physical, more than half the time spent in direct patient contact. [id number]/[facility] #: [id number] PAULIE
[2017-08-23] MEDS: Heparin VIAL(*) 5000 UNITS/ML VIAL (FIVE THOUSAND) SUBCUT SCH ×3 (05:55→20:17)
[2017-08-23 08:28] LABS: ABS Basophils 0 10^3/ul (0-0.2); ABS Eosinophils 0 10^3/ul (0-0.6); ABS Lymphocytes 0.5 10^3/ul (1.0-4.8); ABS Monocytes 0.2 10^3/ul (0-0.8); ABS Neutrophils 2.9 10^3/ul (1.5-7.7); ABS Nucleated RBC 0 10^3/ul; Eosinophil % 0.4 % (0-6); Hematocrit 35 % (35-47); Lymphocyte % 14.3 % (25-47); Mean Corpuscular HGB Conc 35 g/dl (31-36); Mean Corpuscular Hemoglobin 32 pg (27-31); Mean Corpuscular Volume 93 fL (80-97); Mean Platelet Volume 8 um3 (7.4-10.4); Nucleated Red Blood Cells % 0.2; Platelet Count 122 10^3/ul (150-450); Red Blood Count 3.75 10^6/ul (4.0-5.4); Red Cell Distribution Width 14 % (10.5-15); White Blood Count 3.7 10^3/ul (3.5-10.8)
[2017-08-23 08:44] LABS: EGFR Non-African American 50.7 (>60)
[2017-08-23] MEDS: Carbidopa/Levodop 25/100 MG TAB(*) PO SCH ×4 (08:45→20:15)
[2017-08-23] MEDS: Famotidine TAB* 20 MG PO SCH (08:45)
[2017-08-23] MEDS: NS 0.9% 1000 ML* 1,000 ML IV SCH ×2 (08:51→22:07)
--- NOTE | 2017-08-23 15:39 | PN ---
Subjective Date of Service: 08/23/17 Interval History: Patient continues to feel weak and has felt intermittently febrile overnight. Patient states she feels constipated, but states that this is her baseline. Patient denies lightheadedness, palpitations, N/V, dysuria, abdominal pain, Chills, CP, SOB, or other pain. Patient complains of chronic pain and decreased ROM with abduction in the right shoulder. Family History: Unchanged from Admission Social History: Unchanged from Admission Past Medical History: Unchanged from Admission Objective Active Medications: Acetaminophen (Tylenol Tab*) 325 mg PO Q6H PRN PRN Reason: FEVER/PAIN Last Admin: 08/23/17 08:45 Dose: 325 mg Al Hydrox/Mg Hydrox/Simethicone (Maalox Plus*) 30 ml PO Q6H PRN PRN Reason: INDIGESTION Carbidopa/Levodopa (Sinemet 25/100 Tab(*)) 1.5 tab PO 1200,1600,2000 [facility] Last Admin: 08/23/17 12:23 Dose: 1.5 tab Carbidopa/Levodopa (Sinemet 25/100 Tab(*)) 2 tab PO 0800 [facility] Last Admin: 08/23/17 08:45 Dose: 2 tab Clobetasol Propionate (Clobetasol 0.05% Oint*) 1 applic TOPICAL BID PRN PRN Reason: ITCHING Docusate Sodium (Colace Cap*) 100 mg PO BID PRN PRN Reason: CONSTIPATION Famotidine (Pepcid Tab*) 20 mg PO DAILY [facility] Last Admin: 08/23/17 08:45 Dose: 20 mg Heparin Sodium (Porcine) (Heparin Vial(*)) 5,000 units SUBCUT Q8HR [facility] Last Admin: 08/23/17 14:19 Dose: 5,000 units Hydrocortisone (Hytone Cream 1%*) 1 applic TOPICAL BID PRN PRN Reason: ITCHING Sodium Chloride (Ns 0.9% 1000 Ml*) 1,000 mls @ 100 mls/hr IV PER RATE [facility] Last Admin: 08/23/17 08:51 Dose: 100 mls/hr Ceftriaxone Sodium 1 gm/ (Dextrose) 50 mls @ 200 mls/hr IVPB Q24H [facility] Magnesium Hydroxide (Milk Of Magnesia Liq*) 30 ml PO Q4H PRN PRN Reason: CONSTIPATION Ondansetron HCl (Zofran Inj*) 4 mg IV Q4H PRN PRN Reason: NAUSEA/VOMITING Polyvinyl Alcohol (Polyvinyl Alcohol 1.4% Opth*) 1 drop BOTH EYES Q2H PRN PRN Reason: DRY EYE Senna (Senokot Tab*) 1 tab PO BID PRN PRN Reason: CONSTIPATION Vital Signs - 8 hr 08/23/17 08/23/17 08/23/17 07:35 10:00 11:38 Temperature 100.3 F 97.2 F Pulse Rate 93 90 Respiratory 20 16 20 Rate Blood Pressure 148/54 115/72 (mmHg) O2 Sat by Pulse 92 93 Oximetry Oxygen Devices in Use Now: None Appearance: Patient is a 77yo female with a flat affect consistent with parkinsonism who appears stated age and is sitting in the bed in NAD. Eyes: No Scleral Icterus, PERRLA Ears/Nose/Mouth/Throat: NL Teeth, Lips, Gums, Clear Oropharnyx, Mucous Membranes Moist Neck: NL Appearance and Movements; NL JVP, Trachea Midline Respiratory: Symmetrical Chest Expansion and Respiratory Effort, Clear to Auscultation Cardiovascular: NL Sounds; No Murmurs; No JVD, RRR, No Edema Abdominal: NL Sounds; No Tenderness; No Distention, No Hepatosplenomegaly Lymphatic: No Cervical Adenopathy Extremities: No Edema, No Clubbing, Cyanosis Skin: No Rash or Ulcers, No Nodules or Sclerosis Neurological: Alert and Oriented x 3, NL Sensation, - - 4-/5 strength in all muscle groups bilaterally. Tremor in RUE. Rigidity in B/L UE and LE with cogwheeling. Reflexes 2+ and equal in Biceps, Patellar and Achilles tendons. Result Diagrams: 08/23/17 08:07 08/23/17 08:07 Additional Lab and Data: Lab Results 08/22/17 08/22/17 08/22/17 Range/Units 13:29 13:29 13:29 WBC 4.7 (3.5-10.8) 10^3/ul RBC 4.06 (4.0-5.4) 10^6/ul Hgb 13.0 (12.0-16.0) g/dl Hct 38 (35-47) % MCV 93 (80-97) fL MCH 32 H (27-31) pg MCHC 35 (31-36) g/dl RDW 14 (10.5-15) % Plt Count 133 L (150-450) 10^3/ul MPV 7 L (7.4-10.4) um3 Neut % (Auto) 89.1 H (38-83) % Lymph % (Auto) 4.6 L (25-47) % Butler % (Auto) 6.1 (1-9) % Eos % (Auto) 0.1 (0-6) % Baso % (Auto) 0.1 (0-2) % Absolute Neuts (auto) 4.2 (1.5-7.7) 10^3/ul Absolute Lymphs (auto) 0.2 L (1.0-4.8) 10^3/ul Absolute Monos (auto) 0.3 (0-0.8) 10^3/ul Absolute Eos (auto) 0 (0-0.6) 10^3/ul Absolute Basos (auto) 0 (0-0.2) 10^3/ul Absolute Nucleated RBC 0 10^3/ul Nucleated RBC % 0.1 INR (Anticoag Therapy) 0.87 (0.77-1.02) Sodium 135 (133-145) mmol/L Potassium 3.7 (3.5-5.0) mmol/L Chloride 102 (101-111) mmol/L Carbon Dioxide 26 (22-32) mmol/L Anion Gap 7 (2-11) mmol/L BUN 33 H (6-24) mg/dL Creatinine 1.39 H (0.51-0.95) mg/dL Est GFR ( Amer) 47.2 (>60) Est GFR (Non-Af Amer) 36.7 (>60) BUN/Creatinine Ratio 23.7 H (8-20) Glucose 123 H (70-100) mg/dL Lactic Acid (0.5-2.0) mmol/L Calcium 8.6 (8.6-10.3) mg/dL Total Bilirubin 1.20 H (0.2-1.0) mg/dL AST 13 (13-39) U/L ALT 3 L (7-52) U/L Alkaline Phosphatase 53 (34-104) U/L Total Creatine Kinase 29 (10-223) U/L Troponin I 0.01 (<0.04) ng/mL Total Protein 5.9 L (6.4-8.9) g/dL Albumin 3.4 (3.2-5.2) g/dL Globulin 2.5 (2-4) g/dL Albumin/Globulin Ratio 1.4 (1-3) Urine Color Urine Appearance Urine pH (5-9) Ur Specific Trenton (1.010-1.030) Urine Protein (Negative) Urine Ketones (Negative) Urine Blood (Negative) Urine Nitrate (Negative) Urine Bilirubin (Negative) Urine Urobilinogen (Negative) Ur Leukocyte Esterase (Negative) Urine WBC (Auto) (Absent) Urine RBC (Auto) (Absent) Urine Bacteria (Absent) Hyaline Casts (Absent) Urine Glucose (Negative) Urine Ascorbic Acid (Negative) Blood Type Antibody Screen 08/22/17 08/22/17 08/22/17 Range/Units 13:29 13:29 13:40 WBC (3.5-10.8) 10^3/ul RBC (4.0-5.4) 10^6/ul Hgb (12.0-16.0) g/dl Hct (35-47) % MCV (80-97) fL MCH (27-31) pg MCHC (31-36) g/dl RDW (10.5-15) % Plt Count (150-450) 10^3/ul MPV (7.4-10.4) um3 Neut % (Auto) (38-83) % Lymph % (Auto) (25-47) % Butler % (Auto) (1-9) % Eos % (Auto) (0-6) % Baso % (Auto) (0-2) % Absolute Neuts (auto) (1.5-7.7) 10^3/ul Absolute Lymphs (auto) (1.0-4.8) 10^3/ul Absolute Monos (auto) (0-0.8) 10^3/ul Absolute Eos (auto) (0-0.6) 10^3/ul Absolute Basos (auto) (0-0.2) 10^3/ul Absolute Nucleated RBC 10^3/ul Nucleated RBC % INR (Anticoag Therapy) (0.77-1.02) Sodium (133-145) mmol/L Potassium (3.5-5.0) mmol/L Chloride (101-111) mmol/L Carbon Dioxide (22-32) mmol/L Anion Gap (2-11) mmol/L BUN (6-24) mg/dL Creatinine (0.51-0.95) mg/dL Est GFR ( Amer) (>60) Est GFR (Non-Af Amer) (>60) BUN/Creatinine Ratio (8-20) Glucose (70-100) mg/dL Lactic Acid 1.0 (0.5-2.0) mmol/L Calcium (8.6-10.3) mg/dL Total Bilirubin (0.2-1.0) mg/dL AST (13-39) U/L ALT (7-52) U/L Alkaline Phosphatase (34-104) U/L Total Creatine Kinase (10-223) U/L Troponin I (<0.04) ng/mL Total Protein (6.4-8.9) g/dL Albumin (3.2-5.2) g/dL Globulin (2-4) g/dL Albumin/Globulin Ratio (1-3) Urine Color Yellow Urine Appearance Cloudy Urine pH 5.0 (5-9) Ur Specific [place] 1.016 (1.010-1.030) Urine Protein Negative (Negative) Urine Ketones Trace H (Negative) Urine Blood Negative (Negative) Urine Nitrate Positive H (Negative) Urine Bilirubin Negative (Negative) Urine Urobilinogen Negative (Negative) Ur Leukocyte Esterase 2+ H (Negative) Urine WBC (Auto) 3+(>20/hpf) H (Absent) Urine RBC (Auto) Trace(0-2/hpf) (Absent) Urine Bacteria 1+ H (Absent) Hyaline Casts Present H (Absent) Urine Glucose Negative (Negative) Urine Ascorbic Acid * H (Negative) Blood Type B Negative Antibody Screen Negative Assess/Plan/Problems-Billing Assessment: Patient is a 77yo female with a PMH significant for Parkinson's disease and arthritis who presents with generalized weakness and was found to have a UTI for which she is being treated and will likely need JESÚS unpon discharge. - Patient Problems (1) Weakness Current Visit: No Status: Acute Code(s): R53.1 - WEAKNESS SNOMED Code(s): 19088939 Comment: Weakness on exam likely due to Parkinson's, UTI and deconditioning. PT/OT, identified to have outpatient needs. Will look for JESÚS with the plan to return home. (2) Parkinson disease Current Visit: No Status: Acute Priority: High Onset Date: 10/26/15 Code (s): G20 - PARKINSON'S DISEASE SNOMED Code(s): 55783563 Comment: Continue home Sinemet (3) UTI (urinary tract infection) Current Visit: No Status: Acute Priority: High Onset Date: 10/26/15 Comment: Postive for >100K colonies of Kelbsiella pneumoniae. Pending C/S. Back pain possibly due to pyelonephritis but more likely due to arthritis. Continue ceftriaxone. (4) DVT prophylaxis Current Visit: No Status: Acute Code(s): PAT2482 - SNOMED Code(s): 680753717 Comment: HSQ (5) Full code status Current Visit: Yes Status: Acute Code(s): Z78.9 - OTHER SPECIFIED HEALTH STATUS SNOMED Code(s): 751668529 Status and Disposition: Patient is admitted inpatient. Plan for JESÚS at discharge.
[2017-08-23] MEDS ORDERED: cefTRIAXone(*) 1 GM in D5W 50 ML BAG* 50 ML IVPB SCH (17:00)
[2017-08-24] MEDS: Heparin VIAL(*) 5000 UNITS/ML VIAL (FIVE THOUSAND) SUBCUT SCH (06:20)
[2017-08-24] MEDS: NS 0.9% 1000 ML* 1,000 ML IV SCH (08:27)
[2017-08-24] MEDS: Famotidine TAB* 20 MG PO SCH (08:28)
[2017-08-24] MEDS: Carbidopa/Levodop 25/100 MG TAB(*) PO SCH (08:28)
[2017-08-24 08:55] LABS: ABS Basophils 0 10^3/ul (0-0.2); ABS Eosinophils 0.1 10^3/ul (0-0.6); ABS Lymphocytes 1.2 10^3/ul (1.0-4.8); ABS Monocytes 0.5 10^3/ul (0-0.8); ABS Neutrophils 2.4 10^3/ul (1.5-7.7); ABS Nucleated RBC 0 10^3/ul; Hematocrit 35 % (35-47); Hemoglobin 11.8 g/dl (12.0-16.0); Lymphocyte % 27.9 % (25-47); Mean Corpuscular HGB Conc 34 g/dl (31-36); Mean Corpuscular Hemoglobin 32 pg (27-31); Mean Corpuscular Volume 94 fL (80-97); Mean Platelet Volume 8 um3 (7.4-10.4); Nucleated Red Blood Cells % 0.1; Platelet Count 114 10^3/ul (150-450); Red Blood Count 3.71 10^6/ul (4.0-5.4); Red Cell Distribution Width 14 % (10.5-15); White Blood Count 4.1 10^3/ul (3.5-10.8)
[2017-08-24 09:09] LABS: EGFR Non-African American 54.2 (>60)
[2017-08-24] MEDS ORDERED: Magnesium Sulfate 1 GM IV* 1 GM/100 ML BAG IV ONE (10:37)
[2017-08-24 11:33] VITALS: BP 125/55
--- NOTE | 2017-08-25 09:34 | DS ---
CC: Dr. Edson Parra; Dr. Makenzie Ortega * DISCHARGE SUMMARY: DATE OF ADMISSION: 08/22/17 DATE OF DISCHARGE: 08/24/17 PRIMARY CARE PROVIDER: Dr. Edson Parra MY ATTENDING WHILE IN THE HOSPITAL: Dr. Roxanne Alavrez * (DICTATED BY MICAH BERNSTEIN) CONSULTING PROVIDER: Dr. Makenzie Ortega PRIMARY DISCHARGE DIAGNOSES: 1. Weakness. 2. Parkinson's disease. 3. Urinary tract infection. SECONDARY DISCHARGE DIAGNOSES: 1. History of syncope. 2. Arthritis. 3. Dermatitis. STUDIES DONE WHILE IN THE HOSPITAL: Brain CT from 08/22/17 read as no traumatic injury, [id number] involutional change similar to previous exam. Cervical spine CT from 08/22/17 read as no fracture, degenerative changes of the atlantoaxial joint is noted, degenerative disk disease at C5-C6 noted, grade 1 spondylolisthesis of C4 on C5. Chest x-ray from 08/22/17 read as no evidence for acute intrathoracic disease. Pelvis x-ray from 08/22/17 read as no acute bony findings. Knee x-ray from 08/22/17 read as no acute radiographic evidence for traumatic right knee injury, negative exam. Electrocardiogram from 08/22/17 shows normal sinus rhythm, rate is 88, no ST segment changes, normal [place] interval, no blocks. U waves are present. No other abnormalities. Left axis deviation. MEDICATIONS AT DISCHARGE: 1. Systane eye drops 1 drop both eyes b.i.d. as needed. 2. Cranberry 500 mg p.o. daily with meal. 3. Sinemet 25/100 two tabs p.o. at 0800. 4. Betamethasone dip 1 application topical b.i.d. as needed. 5. Hydrocortisone cream 1 application topical b.i.d. 6. Bengay cream topical b.i.d. as needed. 7. Neurontin 100 mg p.o. b.i.d. 8. Tylenol 325 mg p.o. q.6 hours as needed. 9. Docusate 100 mg p.o. b.i.d. as needed. 10. Pepcid 20 mg p.o. daily. 11. Senna 1 tab p.o. b.i.d. as needed. 12. Ceftin 250 mg p.o. b.i.d. x12. Medications discontinued at discharge: 1. Zantac 150 mg p.o. b.i.d. New medications at discharge: 1. Docusate. 2. Famotidine. 3. Senna. 4. Ceftin. HOSPITAL COURSE: This is a brief summary of the patient's presentation. For more detail, please see the history and physical from Dr. Berenice Castelan on 08/22. In brief, the patient is a 77-year-old female with past medical history significant for the above, who was in her normal state of health and on 08/21/17 , but on the morning of 08/22/17, she was unable to walk. The patient had no focal weakness or pain. The patient had decrease in appetite. No urinary symptoms. The patient was having shortness of breath when she walked. The patient had a fall on 08/21/17, but did not lose consciousness or have any pain afterwards. The patient was found to have a urinary tract infection and was given ceftriaxone in the emergency department. The patient improved overnight from 08/22/17 to 08/23/17. The patient continued to deny urinary symptoms, but had CVA tenderness, which was not present on previous exam. The patient felt constipated and was given Docusate and senna, which did not produce a bowel movement, the patient felt like she was going to have a bowel movement after their administration. The patient's temperature up to 100.3, but no other vital sign abnormalities. The patient is non-tachycardic. The patient's laboratory data was remarkable only for a creatinine of 1.39, which is increased from her baseline of around 1.1. The patient's creatine improved to 1.05 and then 0.99. The patient's glucoses were persistently elevated in the mornings at 123, 137, and 134. The patient had a magnesium of 1.8 on the morning of 08/24/17. The patient had no other complaints. The patient was agreeable to short- term rehab. Discussed with the patient that it was likely that her urinary tract infection was contributing to her weakness. The patient was seen by Physical Therapy and was able to walk with a maximum assist. In consultation with her , it was deemed that he was unable to provide this level of care at home. The patient was referred to [facility] and they accepted her as the patient has previously been admitted to [facility] for a short-stay, which allowed her to return home. The patient will continue on antibiotics for a total of 7-day course. PHYSICAL EXAMINATION ON DAY OF DISCHARGE: General: The patient is a 77-year- old female, who appears stated age, has a mask-like faces, and is in no acute distress. Vital Signs: At the time discharge: Temperature 97.9, heart rate 75 , respiratory rate 22, oxygen saturation 98% room air, blood pressure 138/60. HEENT: Head normocephalic, atraumatic. Sclerae anicteric. No conjunctival injection. Nasal mucosa is moist. Oral mucosa is moist. No pharyngeal erythema, discharge, or exudate. Neck: Supple. Nontender. No lymphadenopathy. No carotid bruit auscultated. Cardiac: Regular rate and rhythm. No clicks, murmurs, gallops, or rubs. Pulses 2+ in the bilateral dorsalis pedis, posterior tibialis, and radial areas. Respiratory: Clear. Slight crackles in the bilateral lower lobes, expiratory crackles. Good air exchange bilaterally. No other adventitious lung sounds. Abdomen: Soft, nontender. Slight distention. No guarding. Bowel sounds present. Normoactive in all 4 quadrants. No hepatosplenomegaly. No abdominal bruits auscultated. Genitourinary: No suprapubic tenderness or CVA tenderness. Skin: Clear, dry, intact. No rashes. Neuro: Cranial nerves II through XII grossly intact. The patient has a resting tremor in her right hand of approximately 6 Hz, which is better with intention. The patient has mask-like faces. Otherwise, cranial nerves II through XII are intact. The patient has 4-/5 strength with no focality in the distal and proximal muscle groups of the upper and lower extremities. Sensation to light touch intact. Reflexes 1+ in the bilateral radial, patellar, and Achilles areas. Psychiatric: The patient is pleasant and cooperative. DISCHARGE PLAN: The patient will be discharged to [facility] for subacute rehab with the intention of returning home when her can provide the level of care she requires. The patient will be treated for a total of 7 days on cephalosporin therapy for her urinary tract infection, which includes 6 more days of Ceftin therapy. The patient's Klebsiella pneumoniae UTI was only resistant to ampicillin. The patient should have regular unrestricted diet. The patient should follow up with her neurologist outpatient. The patient should follow up with her primary care provider within 1 week of being discharged from [facility]. The patient should work with Physical Therapy and Occupational Therapy. The patient should engage in activity as tolerated and have a regular unrestricted diet. TIME SPENT: Approximately 60 minutes was spent on this discharge, 30 of which was spent [id number] with the patient obtaining history and physical and discussing the treatment plan. MICAH BERNSTEIN [id number]/[facility] #: [id number] PAULIE
== END 2017-08-24 11:17 | DRG 683 ==
LOC: ED 12:21 → MED 20:59
PROVIDERS: ADMIT Pediatrics; ATTEND Internal Medicine
DX: N17.9 Acute kidney failure, unspecified (principal); N39.0 Urinary tract infection, site not specified; G20 Parkinson's disease; B96.1 Klebsiella pneumoniae [K. pneumoniae] as the cause of diseases classified elsewhere; E86.0 Dehydration; Z16.11 Resistance to penicillins; R53.1 Weakness; M19.90 Unspecified osteoarthritis, unspecified site; Z79.1 Long term (current) use of non-steroidal anti-inflammatories (NSAID); Z79.899 Other long term (current) drug therapy; Z88.6 Allergy status to analgesic agent; Z88.1 Allergy status to other antibiotic agents; Z91.041 Radiographic dye allergy status; Z88.5 Allergy status to narcotic agent; Z88.2 Allergy status to sulfonamides; Z88.8 Allergy status to other drugs, medicaments and biological substances; Z91.048 Other nonmedicinal substance allergy status; E66.9 Obesity, unspecified; Z68.33 Body mass index [BMI] 33.0-33.9, adult
CPT/HCPCS: 36415; 70450; 71045; 72125; 72170; 80048; 80053; 81003; 81015; 82550; 83605; 83735; 84484; 85025; 85610; 86850; 86900; 86901; 87077; 87086; 87186; 93005; 99283; A9270-GY; J0696; J1644; J3475

== ENCOUNTER 2017-08-24 09:40 | Inpatient (IN) | payer MEDICARE, BC ==
[2017-08-24] MEDS ORDERED: Bisacodyl SUPP* 10 MG SUPP PR PRN (11:17)
[2017-08-24] MEDS ORDERED: Senna TAB PO PRN (11:17)
[2017-08-24] MEDS ORDERED: Magnesium Hydroxide LIQ* 30 ML UDC PO PRN (11:17)
[2017-08-24] MEDS: Potassium Chlor TAB* 20 MEQ TAB.ER PO SCH (12:53)
[2017-08-24] MEDS: Acetaminophen TAB* 325 MG PO PRN ×2 (12:54→20:30)
[2017-08-24] MEDS: Carbidopa/Levodop 25/100 MG TAB(*) PO SCH ×3 (12:54→20:54)
[2017-08-24] MEDS: Heparin VIAL(*) 5000 UNITS/ML VIAL (FIVE THOUSAND) SUBCUT SCH ×2 (14:41→22:00)
--- NOTE | 2017-08-24 18:41 | HP ---
CC: Dr. Parra; Dr. Babcock REHABILITATION ADMISSION NOTE: DATE OF ADMISSION: 08/24/17 PRIMARY CARE PROVIDER: Dr. Parra. NEUROLOGIST: Dr. Babcock. REASON FOR ADMISSION: Parkinson's disease. HISTORY OF PRESENT ILLNESS: This is a 77-year-old woman well known to me from outpatient visits related to her Parkinson's and also status post right shoulder replacement. She was on the rehabilitation unit in September of 2016 after a fall and sternum fracture. She was discharged from our unit, able to transfer, and ambulate independently up to 150 feet using a rolling walker. She was also toileting herself independently with occasional assistance for wiping. She reports that recently she thinks that she may have been having more trouble transferring, but was admitted on 08/22/17 due to an acute inability to get from sitting to standing. On the day prior, it was noted that she fell on to the wall getting off the toilet. When she was brought to the emergency room, she was noted to have a normal chest x-ray. There were no fractures seen on pelvis x-ray, x-ray of the right knee, and CT of the cervical spine. CT of the head showed no acute findings, but she has had mild-to- moderate involutional change similar to prior exam. She appeared to be generally weak on physical exam. She was diagnosed with a urinary tract infection, which ultimately grew out Klebsiella pneumoniae. She had been started on IV ceftriaxone and today is being switched to oral Ceftin 250 mg b.i.d. for completing a 7-day course. She was also dehydrated with a creatinine of 1.39 and received IV fluids. Her creatinine is now down to 0.99. Prior to admission, she was independent to supervision with transfers according to her report, although other reports have been contact guard assistance. She was ambulating with supervision using a rolling walker. She required a moderate amount of assistance for bed mobility. She required moderate amount of assistance for bathing and dressing and had hired home health aides from 7 p.m. to 7 a.m. as well as 9:30 a.m. to 12:30 a.m. Her otherwise helped her in the interval times. In physical therapy here, she has required moderate amount of assistance for bed mobility, moderate amount of assistance for transfers, and moderate amount of assistance for ambulating 1 foot. With occupational therapy, she required moderate amount of assistance for toileting and toilet transfers. She is feeling stronger than when she came in and is eager to start rehabilitation so she can return to home. PAST MEDICAL HISTORY: 1. Parkinson's disease. 2. History of syncope and fall with sternal fracture in early 2017. 3. Osteoarthritis, status post right shoulder replacement with chronic pain of the right shoulder and decreased range of motion. 4. History of dermatitis. 5. History of right distal radius fracture, status post ORIF. 6. GERD. 7. Peripheral neuropathy. 8. Hypothyroidism. 9. Hyperlipidemia. 10. Status post hysterectomy. 11. Status post cholecystectomy. MEDICATIONS: 1. Gabapentin 100 mg b.i.d. 2. At home, she uses Bengay twice a day as needed. 3. Cranberry 500 mg q. day. 4. Carbidopa/levodopa 25/100 two tablets at 0800 and 1-1/2 tablets at 1200, 1600, and 2000. 5. Systane eye drops, 1 drop both eyes p.r.n. 6. Tylenol 325 mg q.6 hours p.r.n. 7. Hydrocortisone 2.5% cream topically b.i.d. p.r.n. 8. Betamethasone topically b.i.d. p.r.n. 9. Famotidine 20 mg q. day. 10. Heparin 5000 units subcutaneously q.8 hours for DVT prophylaxis. 11. Ceftin 250 mg b.i.d. 12. Colace 100 mg b.i.d. 13. Clobetasol p.r.n. 14. Zofran p.r.n. 15. Senna p.r.n. ALLERGIES: CIPRO, LEVAQUIN, ERYTHROMYCIN, IODINE, RABEPRAZOLE, VICODIN, DOXYCYCLINE, CONTRAST MEDIA, LANSOPRAZOLE, VIOXX, SULFA, and LORACARBEF. FAMILY HISTORY: Noncontributory. SOCIAL HISTORY: She lives with her in [place]. Their home is 1 level and there is a ramp to enter. Once again, there is a home health aide that helps her overnight 7 p.m. to 7 a.m. as well as 9:30 in the morning to 12:30 p.m. No smoking or alcohol. Her , Layo, is her healthcare proxy if she cannot make decisions for herself. 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 REVIEW OF SYSTEMS: See history of present illness and past medical history. She has not had a bowel movement since admission. Remainder of 13-system review was completed. No other significant findings. PHYSICAL EXAMINATION GENERAL: Well developed, well nourished, appearing stated age. VITAL SIGNS: Temperature 97.8, heart rate 75, respirations 16, oxygenation 100 % on room air, blood pressure is 125/55. HEENT: Normocephalic, atraumatic. Oropharynx is clear. Moist mucous membranes. She has masked facies, typical of Parkinson's disease. LUNGS: Clear to auscultation bilaterally. HEART: Regular rate and rhythm. ABDOMEN: Active bowel sounds. Soft, nontender, nondistended. EXTREMITIES: No clubbing, cyanosis, or edema. MUSCULOSKELETAL: She has very limited range of motion of her right shoulder. Normal range of motion of all other major joints in the left arm and both legs. She may be developing some plantar flexion contractures, left greater than right at the ankles. NEUROLOGICAL: She has resting tremor, right hand greater than left hand. Mild cogwheeling rigidity in her arms. Cranial nerves II through XII are intact. Motor strength is 4+/5 bilateral upper and lower extremities with decreased sensation in the toes bilaterally consistent with her neuropathy. MENTAL STATUS: No acute distress. Alert and appropriate, but thinks the year is 2019. LABORATORY DATA: Today, her white blood cells are 4.1, hemoglobin 11.8, hematocrit 35, platelets 114. Sodium 139, potassium 3.4, BUN 19, creatinine 0.99, magnesium 1.8, calcium 8.3. IMPRESSION: A 77-year-old woman with Parkinson's disease exacerbation in the setting of urinary tract infection and dehydration. She will be admitted to [facility], so she can return to independent living. PLAN: 1. Parkinson's disease. Continue with the current medications. If needed, we will contact Dr. Babcock of Neurology to see if she needs any medication adjustment. 2. Urinary tract infection. Ceftin will be started today to complete a 7-day course. Today is antibiotic day #3. Keep hydrated and follow up labs. 3. Acute kidney injury. Keep hydrated. Follow up labs. 4. GERD. Continue famotidine. This has replaced ranitidine which she was on at admission. 5. Hypokalemia and hypomagnesemia. I will start her on a potassium supplement 20 mEq q. day. She is receiving magnesium intravenously on the acute care service before coming to our unit today. Follow up labs tomorrow. 6. Thrombocytopenia. Follow up labs tomorrow. If they continue to drop, consider heparin-induced thrombocytopenia. 7. DVT prophylaxis. Continue with subcutaneous heparin 5000 units q.8 hours. 8. Advance directives. She is a full code. Her is her healthcare proxy. 9. Estimated length of stay is 10 to 14 days and then return to home. [id number]/[facility] #: [id number] PAULIE
[2017-08-24] MEDS: ceFUROXime TAB(*) 250 MG PO SCH (20:55)
[2017-08-24] MEDS: Gabapentin CAP(*) 100 MG PO SCH (20:56)
[2017-08-24] MEDS: Docusate CAP* 100 MG PO SCH (20:57)
[2017-08-25] MEDS: Heparin VIAL(*) 5000 UNITS/ML VIAL (FIVE THOUSAND) SUBCUT SCH ×3 (05:04→21:36)
[2017-08-25] MEDS: Carbidopa/Levodop 25/100 MG TAB(*) PO SCH ×4 (07:44→20:09)
[2017-08-25] MEDS: ceFUROXime TAB(*) 250 MG PO SCH ×2 (09:08→20:12)
[2017-08-25] MEDS: Potassium Chlor TAB* 20 MEQ TAB.ER PO SCH ×2 (09:08→20:15)
[2017-08-25] MEDS: Famotidine TAB* 20 MG PO SCH (09:08)
[2017-08-25] MEDS: Acetaminophen TAB* 325 MG PO PRN (09:09)
[2017-08-25] MEDS: Gabapentin CAP(*) 100 MG PO SCH (09:10)
[2017-08-25] MEDS: Docusate CAP* 100 MG PO SCH ×2 (09:10→20:12)
[2017-08-25] MEDS: Artificial Tears* 15 ML BTL BOTH EYES PRN (09:13)
[2017-08-25 10:35] LABS: ABS Basophils 0 10^3/ul (0-0.2); ABS Eosinophils 0.2 10^3/ul (0-0.6); ABS Monocytes 0.4 10^3/ul (0-0.8); ABS Neutrophils 2.3 10^3/ul (1.5-7.7); ABS Nucleated RBC 0 10^3/ul; Hematocrit 36 % (35-47); Hemoglobin 12.6 g/dl (12.0-16.0); Lymphocyte % 25.8 % (25-47); Mean Corpuscular HGB Conc 35 g/dl (31-36); Mean Corpuscular Hemoglobin 32 pg (27-31); Mean Corpuscular Volume 93 fL (80-97); Mean Platelet Volume 8 um3 (7.4-10.4); Nucleated Red Blood Cells % 0; Platelet Count 141 10^3/ul (150-450); Red Blood Count 3.89 10^6/ul (4.0-5.4); Red Cell Distribution Width 14 % (10.5-15); White Blood Count 3.9 10^3/ul (3.5-10.8)
[2017-08-25 10:46] LABS: EGFR Non-African American 50.1 (>60)
[2017-08-25] MEDS ORDERED: Potassium Chlor TAB* 20 MEQ TAB.ER PO ONE (10:48)
--- NOTE | 2017-08-25 11:02 | PN ---
Progress Note - Progress Note Date of Service: 08/25/17 Note: Pt is bothered by knee pains. She says at home she does not take gabapentin, uses 650mg of tylenol at a time and also uses ibuprofen 400mg tid prn for arthritis pains. Annoyed by lab draws. No chest pain, shortness or breath or abdominal pains. Nursing notes reviewed. Therapy evaluations in progress. Acetaminophen (Tylenol Tab*) 650 mg PO Q6H PRN PRN Reason: FEVER > 101 Bisacodyl (Dulcolax Supp*) 10 mg [place] DAILY PRN PRN Reason: CONSTIPATION Carbidopa/Levodopa (Sinemet 25/100 Tab(*)) 2 tab PO 0800 [facility] Last Admin: 08/25/17 07:44 Dose: 2 tab Carbidopa/Levodopa (Sinemet 25/100 Tab(*)) 1.5 tab PO 1200,1600,2000 [facility] Last Admin: 08/24/17 20:54 Dose: 1.5 tab Cefuroxime Axetil (Ceftin Tab(*)) 250 mg PO BID [facility] Last Admin: 08/25/17 09:08 Dose: 250 mg Docusate Sodium (Colace Cap*) 100 mg PO BID [facility] Last Admin: 08/25/17 09:10 Dose: Not Given Famotidine (Pepcid Tab*) 20 mg PO DAILY [facility] Last Admin: 08/25/17 09:08 Dose: 20 mg Heparin Sodium (Porcine) (Heparin Vial(*)) 5,000 units SUBCUT Q8HR [facility] Last Admin: 08/25/17 05:04 Dose: 5,000 units Hydrocortisone (Hytone Cream 1%*) 1 applic TOPICAL BID PRN PRN Reason: itching rash Magnesium Hydroxide (Milk Of Magnesia Liq*) 30 ml PO Q6H PRN PRN Reason: CONSTIPATION Magnesium Oxide (Magox 400 Tab*) 400 mg PO DAILY [facility] Multi-Ingredient Liniment/Rub (Yosvany Velasquez*) 1 applic TOPICAL TID PRN PRN Reason: pain Polyvinyl Alcohol (Polyvinyl Alcohol 1.4% Opth*) 1 drop BOTH EYES BID PRN PRN Reason: DRY EYE Last Admin: 08/25/17 09:13 Dose: 1 drop Potassium Chloride (Klor Con Er Tab*) 20 meq PO BID [facility] Senna (Senokot Tab*) 2 tab PO BEDTIME PRN PRN Reason: CONSTIPATION Vital Signs 08/24/17 08/24/17 08/24/17 12:27 12:38 13:00 Temperature 97.3 F 97.3 F Pulse Rate 88 87 Respiratory 15 15 24 Rate Blood Pressure 156/49 156/49 (mmHg) O2 Sat by Pulse 100 100 Oximetry 08/24/17 08/24/17 08/24/17 14:45 16:21 19:21 Temperature 98.8 F Pulse Rate 77 Respiratory 22 16 Rate Blood Pressure 147/59 (mmHg) O2 Sat by Pulse 100 100 Oximetry 08/24/17 08/24/17 08/25/17 20:56 23:55 00:02 Temperature Pulse Rate 76 Respiratory 18 Rate Blood Pressure 154/101 (mmHg) O2 Sat by Pulse 100 99 Oximetry 08/25/17 08/25/17 00:11 05:05 Temperature 97.9 F 98.2 F Pulse Rate 77 74 Respiratory 18 20 Rate Blood Pressure 153/74 150/76 (mmHg) O2 Sat by Pulse 100 97 Oximetry EXAM: GEN: no acute distress. Alert and appropriate. LUNGS: clear to auscultation bilaterally. CV: regular rate and rhythm ABD: +BS, soft, non-tender, non-distended. EXT: no edema. Musculoskeletal: Both knees with normal ROM. Mild crepitus. Left tender over patella tendon. SKIN: bruising from lab draws. Laboratory Results - last 24 hr 08/25/17 08/25/17 09:38 09:38 WBC 3.9 RBC 3.89 L Hgb 12.6 Hct 36 MCV 93 MCH 32 H MCHC 35 RDW 14 Plt Count 141 L MPV 8 Neut % (Auto) 59.9 Lymph % (Auto) 25.8 [place] % (Auto) 9.9 H Eos % (Auto) 4.0 Baso % (Auto) 0.4 Absolute Neuts (auto) 2.3 Absolute Lymphs (auto) 1.0 Absolute Monos (auto) 0.4 Absolute Eos (auto) 0.2 Absolute Basos (auto) 0 Absolute Nucleated RBC 0 Nucleated RBC % 0 Sodium 139 Potassium 3.2 L Chloride 108 Carbon Dioxide 24 Anion Gap 7 BUN 18 Creatinine 1.06 H Est GFR ( Amer) 64.5 Est GFR (Non-Af Amer) 50.1 BUN/Creatinine Ratio 17.0 Glucose 105 H Calcium 8.8 Magnesium 2.0 Total Bilirubin 0.50 AST 11 L ALT 4 L Alkaline Phosphatase 55 Total Protein 6.0 L Albumin 3.4 Globulin 2.6 Albumin/Globulin Ratio 1.3 IMPRESSION: 77yo woman with parkinsons disease exacerbation in the setting of UTI, dehydration and ETHAN. PLAN: #Parkinsons - continue current meds. #UTI - on ceftin. Day 4/7 for antibiotics. #ETHAN/dehydration - Cr is stable, but I d/w her ibuprofen not ideal in this situation. She is open to voltaren gel. #Knee pains - I reviewed right knee x-ray from ER. Trial of voltaren gel bid to knees. Bengay prn, which she uses at home. #Hypokalemia/hypomagnesemia - Mg better after IV dose yesterday. Will start MgOx 400mg qday. Give total of 60mEq of KCl today then give 20mEq BID starting tomorrow. P3 in AM. #Thrombocytopenia - improved. #DVT ppx - sc heparin #Advanced directives - full code. is hcp. #Estimated LOS - IPOC today.
--- NOTE | 2017-08-25 11:17 | PMRUTEAM ---
PMRU: Goals Current Status: Nursing: Current Status Skin Deviations [Right Toe] Abrasion Skin Deviation Description [ healing;shuffling on carpet without sock Right Toe] Physical Therapy: Current Status Bed Mobility Assistance total assit Transfer Moblility Assistance Mod Assist Ambulation Assistance Mod Assist Ambulation Assistive Devices Rolling Walker Stairs Assistance not tested Stairs Recommended Devices has ramp at home Number of Stairs has ramp at home Occupational therapy: Current status Max assist transfer out of bed; Max assist upper body dressing; Total assist lower body dressing; Total assist toileting; Bathing mod Assist. Rec Therapy: Current Status Summary of Assessment and Pt. was very tearful in conversation and voiced Clinical Impression many worries she had about possible diarrhea, the weather, her , not having proper clothing for being on the unit and many other concerns. Provide support emotionally. Pt. states she had not been able to engage in any of her interests d/ t her poor health. Pt. was open to continued leisure visits and denied offers for recreational activities on the unit. Treatment Goals Pt. will engage in leisure activities as tolerated . Treatment Plan Provide RT services and encourage involvement. Provide emotional support as needed. Social Work: Current Status Discharge Plan return home with home care svs and family support Potential for Family Training [facility] is involved and supportive Anticipated Discharge Home Destination Discharge With home care svs and family support Goals: Physical therapy initial goals: Min-moderate assist bed mobility; transfers with rolling walker modified independent; ambulation 50Ft with rolling walker modified independent. Occupational therapy initial goals: Moderate assist for dressing; modified independent toileting; min-moderate assist bathing; modified independent functional transfers. Speech therapy initial goals: pending evaluation. Social Work: Goals Discharge Plan return home with home care svs and family support Potential for Family Training [facility] is involved and supportive Anticipated Discharge Home Destination Discharge With home care svs and family support Care Plan: Care Plan Cardiovascular- Improve/Maintain Start: 08/24/17 19:25 Freq: QSHIFT Status: Active Target: Protocol: Activity Type Activity Date Activity User E-Sign Co-Sign Detail Recorded Client Recorded Date Recorded By Document 08/25/17 00:43 [id number] 08/25/17 00:44 [id number] 08/25/17 00:43 PMRU Outcome: Cardiovascular Vital Signs q Shift for 48hrs Then BID Yes Current Cardiovascular Outcome/Goal Maintain/ Achieve Baseline HR, BP , Perfusion Progression Toward Outcome/Goal Progressing Coping/Psych-Improve/Maintain Start: 08/24/17 19:25 Freq: QSHIFT Status: Active Target: Protocol: Activity Type Activity Date Activity User E-Sign Co-Sign Detail Recorded Client Recorded Date Recorded By Document 08/25/17 00:43 [id number] 08/25/17 00:44 [id number] 08/25/17 00:43 PMRU Outcome: Coping/Psychosocial Coping Outcome/Goals Verbalization of Acceptance of Rehab Admit Verbalization of Sense of Control Over Health Status Psychosocial Outcome/Goals Maintain/ Improve Emotional Health Cooperate/ Participate in Plan Progression Toward Outcome/Goals - Progressing Coping DVT Prophylaxis- Improve/Maintain Start: 08/24/17 19:25 Freq: QSHIFT Status: Active Target: Protocol: Activity Type Activity Date Activity User E-Sign Co-Sign Detail Recorded Client Recorded Date Recorded By Document 08/25/17 00:43 [id number] 08/25/17 00:44 [id number] 08/25/17 00:43 PMRU Outcome: DVT Prophylaxis Outcome/Goals Remains Free of DVT TEDS Stockings on Every AM, Off at HS Progression Toward Outcome/Goals Progressing Discharge Planning - Improve/Maintain Start: 08/24/17 19:25 Freq: DAILY Status: Active Target: Protocol: Activity Type Activity Date Activity User E-Sign Co-Sign Detail Recorded Client Recorded Date Recorded By Document 08/25/17 00:43 [id number] 08/25/17 00:44 [id number] 08/25/17 00:43 PMRU Outcome: Discharge Planning Update Patient Family No Outcome/Goals Demonstrates Understanding of Discharge Plan Pain/Comfort- Improve/Maintain Start: 08/24/17 19:25 Freq: QSHIFT Status: Active Target: Protocol: Activity Type Activity Date Activity User E-Sign Co-Sign Detail Recorded Client Recorded Date Recorded By Document 08/25/17 00:43 [id number] 08/25/17 00:44 [id number] 08/25/17 00:43 PMRU Outcome: Pain/Comfort Outcome/Goals Demonstrates Knowledge and Use of Available Comfort Measures Achieves Acceptable Comfort/Pain Level as Determined by Patient/Condit Progression Toward Outcome/Goals Progressing Outcome/Goals Met Comment pt resting Safety- Improve/Maintain Start: 08/24/17 19:25 Freq: QSHIFT Status: Active Target: Protocol: Activity Type Activity Date Activity User E-Sign Co-Sign Detail Recorded Client Recorded Date Recorded By Document 08/25/17 00:43 [id number] 08/25/17 00:44 [id number] 08/25/17 00:43 PMRU Outcome: Safety Outcome/Goals Remain Free of Injury or Harm Progression Toward Outcome/Goals Progressing Outcome/Goals Met Comment PA in place Medicine Note: Length of Stay: [10 days] Anticipated Discharge Destination: Home Tentative Discharge Date: [09/04/17] Discharged to: [home]
[2017-08-25] MEDS: Magnesium Oxide TAB* 400 MG PO SCH (12:14)
[2017-08-25] MEDS: Diclofenac 1% GEL (NF) 100 GM TUBE TOPICAL SCH ×2 (14:25→20:17)
[2017-08-26] MEDS: Heparin VIAL(*) 5000 UNITS/ML VIAL (FIVE THOUSAND) SUBCUT SCH ×3 (06:02→21:02)
[2017-08-26 06:25] LABS: EGFR Non-African American 56.9 (>60)
[2017-08-26] MEDS: Carbidopa/Levodop 25/100 MG TAB(*) PO SCH ×4 (08:45→21:01)
[2017-08-26] MEDS: ceFUROXime TAB(*) 250 MG PO SCH ×2 (08:45→21:01)
[2017-08-26] MEDS: Docusate CAP* 100 MG PO SCH ×2 (08:45→21:03)
[2017-08-26] MEDS: Analgesic BALM* 114 GM TOPICAL PRN (08:45)
[2017-08-26] MEDS: Famotidine TAB* 20 MG PO SCH (08:45)
[2017-08-26] MEDS: Magnesium Oxide TAB* 400 MG PO SCH (08:45)
[2017-08-26] MEDS: Potassium Chlor TAB* 20 MEQ TAB.ER PO SCH ×2 (08:45→21:02)
[2017-08-26] MEDS: Diclofenac 1% GEL (NF) 100 GM TUBE TOPICAL SCH (08:46)
--- NOTE | 2017-08-26 11:01 | PN ---
Progress Note - Progress Note Date of Service: 08/26/17 Note: She is annoyed by blood draws. She is also frustrated she is not moving as quickly as she would like and wonders if she should have more Sinemet. No chest pain, shortness of breath or abdominal pain. Nursing and therapy notes reviewed. I advised, she did quite well in the afternoon sessions. No knee pains right now. She thinks bengay and tylenol are enough and she does not need diclofenac gel prn. Acetaminophen (Tylenol Tab*) 650 mg PO Q6H PRN PRN Reason: FEVER > 101 Bisacodyl (Dulcolax Supp*) 10 mg [place] DAILY PRN PRN Reason: CONSTIPATION Carbidopa/Levodopa (Sinemet 25/100 Tab(*)) 2 tab PO 0800 [facility] Last Admin: 08/26/17 08:45 Dose: 2 tab Carbidopa/Levodopa (Sinemet 25/100 Tab(*)) 1.5 tab PO 1200,1600,2000 [facility] Last Admin: 08/25/17 20:09 Dose: 1.5 tab Cefuroxime Axetil (Ceftin Tab(*)) 250 mg PO BID [facility] Last Admin: 08/26/17 08:45 Dose: 250 mg Diclofenac Sodium (Voltaren 1% Gel (Nf)) 1 applic TOPICAL BID [facility] PRN Reason: Protocol Last Admin: 08/26/17 08:46 Dose: Not Given Docusate Sodium (Colace Cap*) 100 mg PO BID [facility] Last Admin: 08/26/17 08:45 Dose: Not Given Famotidine (Pepcid Tab*) 20 mg PO DAILY [facility] Last Admin: 08/26/17 08:45 Dose: 20 mg Heparin Sodium (Porcine) (Heparin Vial(*)) 5,000 units SUBCUT Q8HR [facility] Last Admin: 08/26/17 06:02 Dose: 5,000 units Hydrocortisone (Hytone Cream 1%*) 1 applic TOPICAL BID PRN PRN Reason: itching rash Magnesium Hydroxide (Milk Of Magnesia Liq*) 30 ml PO Q6H PRN PRN Reason: CONSTIPATION Magnesium Oxide (Magox 400 Tab*) 400 mg PO DAILY [facility] Last Admin: 08/26/17 08:45 Dose: 400 mg Multi-Ingredient Liniment/Rub (Yosvany Velasquez*) 1 applic TOPICAL TID PRN PRN Reason: pain Last Admin: 08/26/17 08:45 Dose: 1 applic Polyvinyl Alcohol (Polyvinyl Alcohol 1.4% Opth*) 1 drop BOTH EYES BID PRN PRN Reason: DRY EYE Last Admin: 08/25/17 09:13 Dose: 1 drop Potassium Chloride (Klor Con Er Tab*) 20 meq PO BID [facility] Last Admin: 08/26/17 08:45 Dose: 20 meq Senna (Senokot Tab*) 2 tab PO BEDTIME PRN PRN Reason: CONSTIPATION Vital Signs 08/25/17 08/25/17 08/26/17 16:06 20:00 06:03 Temperature 97.3 F 99.1 F Pulse Rate 80 80 Respiratory 16 16 20 Rate Blood Pressure 159/81 155/83 (mmHg) O2 Sat by Pulse 100 100 Oximetry EXAM: GEN: no acute distress. Alert and appropriate. LUNGS: clear to auscultation bilaterally. CV: regular rate and rhythm ABD: +BS, soft, non-tender, non-distended. EXT: no edema. Musculoskeletal: Both knees with normal ROM. Mild crepitus. Left tender over patella tendon. SKIN: bruising from lab draws. IMPRESSION: 77yo woman with parkinsons disease exacerbation in the setting of UTI, dehydration and ETHAN. PLAN: #Parkinsons - continue current meds. I explained to her that the UTI and ETHAN could worsen her Parkinsons temporarily and we should wait before deciding to change doses. If needed can d/w Dr. Babcock. #UTI - on ceftin. Day 5/7 for antibiotics. #ETHAN/dehydration - Cr is stable. #Knee pains - Bengay and tylenol prn, which she uses at home. #Hypokalemia/hypomagnesemia - resolved. Continue magnesium oxide. KCL 20mEq bid today and will change to qday tomorrow. Recheck P3 Sunday. #Thrombocytopenia - improved. #DVT ppx - sc heparin #Advanced directives - full code. is hcp. #Estimated LOS - anticipate discharge 09/04/17.
[2017-08-27] MEDS: Heparin VIAL(*) 5000 UNITS/ML VIAL (FIVE THOUSAND) SUBCUT SCH ×3 (05:01→21:15)
[2017-08-27] MEDS: Acetaminophen TAB* 325 MG PO PRN ×2 (06:03→13:16)
[2017-08-27] MEDS: ceFUROXime TAB(*) 250 MG PO SCH ×2 (08:08→19:59)
[2017-08-27] MEDS: Magnesium Oxide TAB* 400 MG PO SCH (08:08)
[2017-08-27] MEDS: Carbidopa/Levodop 25/100 MG TAB(*) PO SCH ×4 (08:08→19:59)
[2017-08-27] MEDS: Docusate CAP* 100 MG PO SCH ×2 (08:08→19:59)
[2017-08-27] MEDS: Famotidine TAB* 20 MG PO SCH (08:08)
[2017-08-27] MEDS: Potassium Chlor TAB* 20 MEQ TAB.ER PO SCH (08:09)
--- NOTE | 2017-08-27 12:56 | PN ---
Progress Note - Progress Note Date of Service: 08/27/17 Note: Nursing notes some redness under her breasts. No chest pain, shortness of breath or abdominal pain. Nursing and therapy notes reviewed. Acetaminophen (Tylenol Tab*) 650 mg PO Q6H PRN PRN Reason: FEVER > 101 Last Admin: 08/27/17 06:03 Dose: 650 mg Bisacodyl (Dulcolax Supp*) 10 mg [place] DAILY PRN PRN Reason: CONSTIPATION Carbidopa/Levodopa (Sinemet 25/100 Tab(*)) 2 tab PO 0800 [facility] Last Admin: 08/27/17 08:08 Dose: 2 tab Carbidopa/Levodopa (Sinemet 25/100 Tab(*)) 1.5 tab PO 1200,1600,2000 [facility] Last Admin: 08/27/17 11:52 Dose: 1.5 tab Cefuroxime Axetil (Ceftin Tab(*)) 250 mg PO BID [facility] Last Admin: 08/27/17 08:08 Dose: 250 mg Docusate Sodium (Colace Cap*) 100 mg PO BID [facility] Last Admin: 08/27/17 08:08 Dose: 100 mg Famotidine (Pepcid Tab*) 20 mg PO DAILY [facility] Last Admin: 08/27/17 08:08 Dose: 20 mg Heparin Sodium (Porcine) (Heparin Vial(*)) 5,000 units SUBCUT Q8HR [facility] Last Admin: 08/27/17 05:01 Dose: 5,000 units Hydrocortisone (Hytone Cream 1%*) 1 applic TOPICAL BID PRN PRN Reason: itching rash Magnesium Hydroxide (Milk Of Magnesia Liq*) 30 ml PO Q6H PRN PRN Reason: CONSTIPATION Magnesium Oxide (Magox 400 Tab*) 400 mg PO DAILY [facility] Last Admin: 08/27/17 08:08 Dose: 400 mg Multi-Ingredient Liniment/Rub (Yosvany Velasquez*) 1 applic TOPICAL TID PRN PRN Reason: pain Last Admin: 08/26/17 08:45 Dose: 1 applic Nystatin (Nystatin Top Powder*) 1 applic TOPICAL TID [facility] Polyvinyl Alcohol (Polyvinyl Alcohol 1.4% Opth*) 1 drop BOTH EYES BID PRN PRN Reason: DRY EYE Last Admin: 08/25/17 09:13 Dose: 1 drop Potassium Chloride (Klor Con Er Tab*) 20 meq PO DAILY [facility] Last Admin: 08/27/17 08:09 Dose: 20 meq Senna (Senokot Tab*) 2 tab PO BEDTIME PRN PRN Reason: CONSTIPATION Vital Signs 08/26/17 08/26/17 08/27/17 16:12 16:30 04:05 Temperature 99.9 F 97.7 F Pulse Rate 83 89 Respiratory 16 16 22 Rate Blood Pressure 146/65 151/79 (mmHg) O2 Sat by Pulse 100 100 100 Oximetry 08/27/17 04:36 Temperature Pulse Rate Respiratory 22 Rate Blood Pressure (mmHg) O2 Sat by Pulse 100 Oximetry EXAM: GEN: no acute distress. Alert and appropriate. LUNGS: clear to auscultation bilaterally. CV: regular rate and rhythm ABD: +BS, soft, non-tender, non-distended. EXT: no edema. SKIN: bruising from lab draws. Mild erythema and moisture under both breasts. IMPRESSION: 77yo woman with parkinsons disease exacerbation in the setting of UTI, dehydration and ETHAN. PLAN: #Parkinsons - continue current meds. I explained to her that the UTI and ETHAN could worsen her Parkinsons temporarily and we should wait before deciding to change doses of Sinemet. If needed can d/w Dr. Babcock. #UTI - on ceftin. Day 6/7 for antibiotics. #ETHAN/dehydration - Cr stable on last check. #Knee pains - Bengay and tylenol prn, which she uses at home. #Hypokalemia/hypomagnesemia - resolved. Continue magnesium oxide. KCL 20mEq qday. Recheck P3 Sunday. #Thrombocytopenia - improved. #Yeast under breasts - nystatin powder tid #DVT ppx - sc heparin #Advanced directives - full code. is hcp. #Estimated LOS - anticipate discharge 09/04/17.
[2017-08-27] MEDS: Analgesic BALM* 114 GM TOPICAL PRN ×2 (13:13→18:42)
[2017-08-27] MEDS: Nystatin TOP POWDER* 15 GM BTL TOPICAL SCH ×2 (15:11→20:09)
[2017-08-28] MEDS: Acetaminophen TAB* 325 MG PO PRN ×2 (02:24→16:05)
[2017-08-28] MEDS: Heparin VIAL(*) 5000 UNITS/ML VIAL (FIVE THOUSAND) SUBCUT SCH ×3 (04:41→22:06)
[2017-08-28] MEDS: Famotidine TAB* 20 MG PO SCH (08:05)
[2017-08-28] MEDS: Analgesic BALM* 114 GM TOPICAL PRN ×2 (08:05→20:33)
[2017-08-28] MEDS: Magnesium Oxide TAB* 400 MG PO SCH (08:05)
[2017-08-28] MEDS: Docusate CAP* 100 MG PO SCH ×2 (08:05→20:32)
[2017-08-28] MEDS: Potassium Chlor TAB* 20 MEQ TAB.ER PO SCH (08:05)
[2017-08-28] MEDS: Nystatin TOP POWDER* 15 GM BTL TOPICAL SCH ×3 (08:05→20:23)
[2017-08-28] MEDS: ceFUROXime TAB(*) 250 MG PO SCH ×2 (08:06→20:32)
[2017-08-28] MEDS: Carbidopa/Levodop 25/100 MG TAB(*) PO SCH ×4 (08:06→19:57)
--- NOTE | 2017-08-28 12:50 | PMRUTEAM ---
PMRU: Goals Current Status: Nursing: Current Status Skin Deviations [R Hand] Bruise Skin Deviations [Breast] Rash Skin Deviations [Right Toe] Abrasion Skin Deviation Description [R healing Hand] Skin Deviation Description [ Nystatin in place Breast] Skin Deviation Description [ healing;shuffling on carpet without sock Right Toe] Bladder Current Status voiding on BSC. no incontinence Bowel Current Status GA given. large bm this am Nutrition Current Status appetite good Medication Current Status needs reinforcement Physical Therapy: Current Status Bed Mobility Assistance Not Tested Transfer Moblility Assistance Supervision,Contact Guard Assist Transfer/Bed Mobility Rolling Walker Recommended Devices Ambulation Assistance Independent,Contact Guard Assist Ambulation Assistive Devices Rolling Walker Number of Feet Patient 150' Ambulated Ambulation Comment anxious short step length reciprocal type gait. Stairs Assistance Mod Assist Stairs Recommended Devices Two Rails Number of Stairs 2 Occupational Therapy: Current Status Upper Body Dressing Mod Assist Lower Body Dressing Total Assist Bathing Max Asst,Total Assist Toileting Total Assist,2 Person Assist Toilet Transfer Mod Assist,Max Asst,2 Person Assist Eating Supervision Rec Therapy: Current Status Summary of Assessment and RT assessment complete and pt. is aware of RT Clinical Impression services. Pt. demosntrates an improvement in her mood, affect and thinking as compared to the day of admission. Pt. is open to continued leisure visits. Treatment Goals Pt. will engage in leisure activities while on the unit. Treatment Plan Provide RT services and encourage involvement. Social Work: Current Status Discharge Plan return home with home care svs and family support Potential for Family Training TBD Anticipated Discharge Home Destination Discharge With [facility], [facility] Home Health and family support Nutrition: Current Status Monitoring generally eating well x past 2-3 days. Consuming 75-100% of regular diet. Skin is instact w/low risk for breakdown. Noted to have had BM today. Full assessment planned 09/03, but initial goals are as outlined below. Goals: Physical Therapy: Initial Goals Bed Mobility Assistance Independent Transfer Mobility Assistance Independent Transfer/Bed Mobility Rolling Walker Recommended Devices Ambulation Independent Ambulation Recommended Devices Rolling Walker Ambulation Distance 150 Stairs Assistance Contact Guard Assist Stair Recommended Devices Two Rails Number of Stairs 5 Physical Therapy: Updated Goals Bed Mobility Assistance Independent Transfer Mobility Assistance Independent Transfer/Bed Mobility Rolling Walker Recommended Devices Ambulation Assistance Independent Ambulation Assistive Devices Rolling Walker Ambulation Distance (ft) 150' Stairs Assistance Supervision Stairs Recommended Devices Two Rails Number of Stairs 5 Occupational Therapy: Initial Goals Goals to be Completed in (Days 10 ) Upper Body Bathing Routine Minimal Contact Assist Lower Body Bathing Routine Moderate Assist Upper Body Dressing Routine Moderate Assist Lower Body Dressing Routine Moderate Assist Toilet Hygeine and Clothing Minimal Contact Assist Management Routine Toilet Transfer Routine Supervision/Set Up Step-In Shower Transfer Minimal Contact Assist Routine Functional Transfers for ADL Modified Independent with Grooming Routine Supervision/Set Up Feeding Routine Supervision/Set Up Nursing: Goals Bladder Goal void in BR Bowel Goal bowel meds to continue Nutrition Goal 100% of all meals Medication Goal to assist Nutrition: Goals Intervention Goals 1. adequate po intake to maintain stable wt, lean body mass, and skin integrity 2. adequate fluid intake; no clinical s/sx dehydration 3. maintain regular bowel pattern without constipation or diarrhea Social Work: Goals Discharge Plan return home with home care svs and family support Potential for Family Training TBD Anticipated Discharge Home Destination Discharge With [facility], [facility] Home Health and family support Care Plan: Care Plan ADL's - Improve/Maintain Start: 08/25/17 14:52 Freq: DAILY Status: Active Target: Protocol: Activity Type Activity Date Activity User E-Sign Co-Sign Detail Recorded Client Recorded Date Recorded By Document 08/27/17 14:28 [id number] 08/27/17 14:28 [id number] 08/27/17 14:28 PMRU Outcome: ADL's/ADL Transfers Orders/Interventions Occupational Therapy Evaluation & Treatment Communication Tool in Patient Room Device Yes Address Deficits Secondary To: weakness, h/o Parkinson's dz Patient to receive OT 5x/wk for 60-120 Therex min/day Self Care Management Group Therapy UE/LE ADL's with Assist Yes: modA ADL Transfers with Assist Yes: supervision- Tom Toileting: Transfers,Clothing Management Yes: Tom ,Hygeine w/Assist Light Kitchen/Laundry w/Assist No Progression Toward Outcome/Goals Progressing Outcome/Goals Met Pt requires extra time for all tasks d/t Parkinson's and weakness. She is near baseline in regards to her ADL status. Was able to perform STS transfers with 1 min A by end of session (RN reports that medication likely taking full effect by this time). Biggest focus of therapy is to improve consistency of mobility; pt is agreeable to POC. Cardiovascular- Improve/Maintain Start: 08/24/17 19:25 Freq: DAILY Status: Active Target: Protocol: Activity Type Activity Date Activity User E-Sign Co-Sign Detail Recorded Client Recorded Date Recorded By Document 08/28/17 10:56 [id number] 08/28/17 10:57 [id number] 08/28/17 10:56 PMRU Outcome: Cardiovascular Vital Signs q Shift for 48hrs Then BID Yes Daily Weight Ordered No Current Cardiovascular Outcome/Goal Maintain/ Achieve Baseline HR, BP , Perfusion Free of Abnormal Cardiac Symptoms Progression Toward Outcome/Goal Progressing Communication-Improve/Maintain Start: 08/26/17 09:28 Freq: DAILY Status: Active Target: Protocol: Activity Type Activity Date Activity User E-Sign Co-Sign Detail Recorded Client Recorded Date Recorded By Document 08/28/17 02:42 [id number] 08/28/17 02:43 [id number] 08/28/17 02:42 PMRU Outcome: Communication/Cognitive Status Outcome/Goals Makes Needs Known Effectively Progression Toward Outcomes/Goals Progressing Outcome/Goals Met Use Comm Tools/ Devices Makes Needs Known Effectively Coping/Psych-Improve/Maintain Start: 08/24/17 19:25 Freq: DAILY Status: Active Target: Protocol: Activity Type Activity Date Activity User E-Sign Co-Sign Detail Recorded Client Recorded Date Recorded By Document 08/28/17 10:56 [id number] 08/28/17 10:57 [id number] 08/28/17 10:56 PMRU Outcome: Coping/Psychosocial Coping Outcome/Goals Verbalization of Acceptance of Rehab Admit Verbalization of Sense of Control Over Health Status Psychosocial Outcome/Goals Maintain/ Improve Emotional Health Cooperate/ Participate in Plan Other Outcome/Goals patient anxious at times, support and reassurance given Progression Toward Outcome/Goals - Progressing Coping Progression Toward Outcome/Goals - Progressing Psychosocial DVT Prophylaxis- Improve/Maintain Start: 08/24/17 19:25 Freq: DAILY Status: Active Target: Protocol: Activity Type Activity Date Activity User E-Sign Co-Sign Detail Recorded Client Recorded Date Recorded By Document 08/28/17 10:56 [id number] 08/28/17 10:57 [id number] 08/28/17 10:56 PMRU Outcome: DVT Prophylaxis Outcome/Goals Remains Free of DVT Complies with DVT Prophylaxis /Treatment TEDS Stockings on Every AM, Off at HS Other Outcome/Goals heparin Progression Toward Outcome/Goals Progressing Discharge Planning - Improve/Maintain Start: 08/24/17 19:25 Freq: DAILY Status: Active Target: Protocol: Activity Type Activity Date Activity User E-Sign Co-Sign Detail Recorded Client Recorded Date Recorded By Document 08/28/17 02:42 [id number] 08/28/17 02:43 [id number] 08/28/17 02:42 PMRU Outcome: Discharge Planning Update Patient Family No Outcome/Goals Demonstrates Understanding of Discharge Plan Progression Toward Outcome/Goals Progressing Education-Improve/Maintain Start: 08/26/17 09:28 Freq: DAILY Status: Active Target: Protocol: Activity Type Activity Date Activity User E-Sign Co-Sign Detail Recorded Client Recorded Date Recorded By Document 08/28/17 10:56 [id number] 08/28/17 10:57 [id number] 08/28/17 10:56 PMRU Outcome: Education Outcome/Goals Encourage Questions Progression Toward Outcome/Goals Progressing Outcome/Goals Met Comment continually remind pt of how to transfer . Medication Administration Start: 08/26/17 09:28 Freq: DAILY Status: Active Target: Protocol: Activity Type Activity Date Activity User E-Sign Co-Sign Detail Recorded Client Recorded Date Recorded By Document 08/28/17 10:56 [id number] 08/28/17 10:57 [id number] 08/28/17 10:56 PMRU Outcome: Medication Administration Assess Patient Knowledge/Teach Med Yes Education for all Meds Outcome/Goals Family/ Caregiver Administer Medications at Home Progression Towards Outcome/Goals Progressing Is Patient Going Home on Lovenox? No Mobility- Improve/Maintain Start: 08/24/17 19:25 Freq: DAILY Status: Active Target: Protocol: Activity Type Activity Date Activity User E-Sign Co-Sign Detail Recorded Client Recorded Date Recorded By Document 08/27/17 12:41 [id number] 08/27/17 12:41 [id number] 08/27/17 12:41 PMRU Outcome: Mobility Activity OOB with Assistance Yes WBAT Yes Device Yes Assistance Yes Patient to be seen 5x/wk for 60-120 min/ Therex day for: Mobility Training Gait Training W/C Mobility Balance Outcome/Goals Maintain/ Achieve Baseline Mobility Status Improve Mobility Status Demonstrates Proper Use of Assistive Devices Free from Complications of Immobility Progression Toward Outcome/Goals Progressing Bed Mobility Yes: independent Transfers Yes: independent with RW Gait x ft Yes: independent with RW to 150 feet Up/Down Stairs Yes: cga+! up down 5 stairs with 2 rails. Neurological- Improve/Maintain Start: 08/26/17 09:28 Freq: DAILY Status: Active Target: Protocol: Activity Type Activity Date Activity User E-Sign Co-Sign Detail Recorded Client Recorded Date Recorded By Document 08/28/17 10:56 [id number] [id number] 08/28/17 10:57 [id number] 08/28/17 10:56 PMRU Outcome: Neurological Weakness/Aphasia Weakness Weakness/Aphasia Comment generalized weakness d/t parkinsons Outcome/Goals Maintain/ Achieve Baseline Neurological Status Improve Neurological Status Maintain/ Improve Strength/ROM Progression Toward Outcome/Goals Progressing Pain/Comfort- Improve/Maintain Start: 08/24/17 19:25 Freq: DAILY Status: Active Target: Protocol: Activity Type Activity Date Activity User E-Sign Co-Sign Detail Recorded Client Recorded Date Recorded By Document 08/28/17 10:56 [id number] [email or web address] 08/28/17 10:57 [id number] 08/28/17 10:56 PMRU Outcome: Pain/Comfort Outcome/Goals Demonstrates Knowledge and Use of Available Comfort Measures Achieves Acceptable Comfort/Pain Level as Determined by Patient/Condit Progression Toward Outcome/Goals Progressing Safety- Improve/Maintain Start: 08/24/17 19:25 Freq: DAILY Status: Active Target: Protocol: Activity Type Activity Date Activity User E-Sign Co-Sign Detail Recorded Client Recorded Date Recorded By Document 08/28/17 10:56 [id number] [email or web address] 08/28/17 10:57 [id number] 08/28/17 10:56 PMRU Outcome: Safety Outcome/Goals Remain Free of Injury or Harm Cooperates with Safety Measures for Least Restrictive Environment Prevent Falls/ Injury Progression Toward Outcome/Goals Progressing Outcome/Goals Met Comment PA in place Skin- Improve/Maintain Start: 08/26/17 09:28 Freq: DAILY Status: Active Target: Protocol: Activity Type Activity Date Activity User E-Sign Co-Sign Detail Recorded Client Recorded Date Recorded By Document 08/28/17 10:56 [id number] 08/28/17 10:57 [id number] 08/28/17 10:56 PMRU Outcome: Skin Skin Risk Level High Skin Orders Air Mattress Outcome/Goals Maintain/ Improve Skin Intergrity Progression Toward Outcome/Goals Progressing Medicine Note: Length of Stay: 3 days Anticipated Discharge Destination: Home Tentative Discharge Date: 08/31/17 Discharged to: Home
--- NOTE | 2017-08-28 18:25 | PN ---
Progress Note - Progress Note Date of Service: 08/28/17 Note: Felicia visited. She was discussed in interdisciplinary team rounds. She has made some gains but ADLs still require assistance. Will d/w Current Medications Acetaminophen (Tylenol Tab*) 650 mg PO Q6H PRN PRN Reason: FEVER > 101 Last Admin: 08/28/17 16:05 Dose: 650 mg Bisacodyl (Dulcolax Supp*) 10 mg [place] DAILY PRN PRN Reason: CONSTIPATION Last Admin: 08/28/17 07:39 Dose: 10 mg Carbidopa/Levodopa (Sinemet 25/100 Tab(*)) 2 tab PO 0800 [facility] Last Admin: 08/28/17 08:06 Dose: 2 tab Carbidopa/Levodopa (Sinemet 25/100 Tab(*)) 1.5 tab PO 1200,1600,2000 [facility] Last Admin: 08/28/17 16:04 Dose: 1.5 tab Cefuroxime Axetil (Ceftin Tab(*)) 250 mg PO BID [facility] Last Admin: 08/28/17 08:06 Dose: 250 mg Docusate Sodium (Colace Cap*) 100 mg PO BID [facility] Last Admin: 08/28/17 08:05 Dose: 100 mg Famotidine (Pepcid Tab*) 20 mg PO DAILY [facility] Last Admin: 08/28/17 08:05 Dose: 20 mg Heparin Sodium (Porcine) (Heparin Vial(*)) 5,000 units SUBCUT Q8HR [facility] Last Admin: 08/28/17 14:15 Dose: 5,000 units Hydrocortisone (Hytone Cream 1%*) 1 applic TOPICAL BID PRN PRN Reason: itching rash Magnesium Hydroxide (Milk Of Magnesia Liq*) 30 ml PO Q6H PRN PRN Reason: CONSTIPATION Magnesium Oxide (Magox 400 Tab*) 400 mg PO DAILY [facility] Last Admin: 08/28/17 08:05 Dose: 400 mg Multi-Ingredient Liniment/Rub (Yosvany Velasquez*) 1 applic TOPICAL TID PRN PRN Reason: pain Last Admin: 08/28/17 08:05 Dose: 1 applic Nystatin (Nystatin Top Powder*) 1 applic TOPICAL TID [facility] Last Admin: 08/28/17 14:18 Dose: 1 applic Polyvinyl Alcohol (Polyvinyl Alcohol 1.4% Opth*) 1 drop BOTH EYES BID PRN PRN Reason: DRY EYE Last Admin: 08/25/17 09:13 Dose: 1 drop Potassium Chloride (Klor Con Er Tab*) 20 meq PO DAILY [facility] Last Admin: 08/28/17 08:05 Dose: 20 meq Senna (Senokot Tab*) 2 tab PO BEDTIME PRN PRN Reason: CONSTIPATION Last Admin: 08/27/17 20:02 Dose: 2 tab Vital Signs Temp Pulse Resp BP Pulse Ox 97.6 F 93 18 155/79 100 08/28/17 16:06 08/28/17 16:06 08/28/17 16:06 08/28/17 16:06 08/28/17 16:06 EXAM: HEENT: Parkinson facies LUNGS: Clear bilaterally HEART: reg rhythm ABDOMEN: Soft + BS ASSESSMENT/PLAN: 1. 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 Will d/w home vs ? 2. UTI: ceftin. Day 7/7 for antibiotics. 3. ETHAN/dehydration: Cr stable on last check. 4. knee pains: Bengay and tylenol prn, which she uses at home. 5. Hypokalemia/hypomagnesemia - resolved. Continue magnesium oxide. KCL 20mEq qday. Recheck P3 Sunday. 6. Thrombocytopenia - improved. 7. Yeast under breasts - nystatin powder tid 8. DVT prophylaxis: s/q heparin 9. Advanced directives - full code. is hcp.
[2017-08-29] MEDS: Acetaminophen TAB* 325 MG PO PRN ×3 (00:30→18:07)
[2017-08-29] MEDS: Heparin VIAL(*) 5000 UNITS/ML VIAL (FIVE THOUSAND) SUBCUT SCH ×3 (05:24→21:30)
[2017-08-29] MEDS: Carbidopa/Levodop 25/100 MG TAB(*) PO SCH ×4 (06:36→20:15)
[2017-08-29] MEDS: Nystatin TOP POWDER* 15 GM BTL TOPICAL SCH ×3 (08:21→21:31)
[2017-08-29] MEDS: Famotidine TAB* 20 MG PO SCH (08:21)
[2017-08-29] MEDS: Docusate CAP* 100 MG PO SCH ×2 (08:21→20:16)
[2017-08-29] MEDS: Magnesium Oxide TAB* 400 MG PO SCH (08:21)
[2017-08-29] MEDS: Potassium Chlor TAB* 20 MEQ TAB.ER PO SCH (08:22)
--- NOTE | 2017-08-29 21:05 | PN ---
Progress Note - Progress Note Date of Service: 08/29/17 Note: Felicia visited. Therapy notes read and reviewed. She is complaining of knee pain and doesn't think tylenol is strong enough. She cannot have Tramadol. Current Medications Acetaminophen (Tylenol Tab*) 650 mg PO Q6H PRN PRN Reason: FEVER > 101 Last Admin: 08/29/17 18:07 Dose: 650 mg Bisacodyl (Dulcolax Supp*) 10 mg [place] DAILY PRN PRN Reason: CONSTIPATION Last Admin: 08/28/17 07:39 Dose: 10 mg Carbidopa/Levodopa (Sinemet 25/100 Tab(*)) 1.5 tab PO 1200,1600,2000 [facility] Last Admin: 08/29/17 20:15 Dose: 1.5 tab Carbidopa/Levodopa (Sinemet 25/100 Tab(*)) 2 tab PO 0700 [facility] Last Admin: 08/29/17 06:36 Dose: 2 tab Docusate Sodium (Colace Cap*) 100 mg PO BID [facility] Last Admin: 08/29/17 20:16 Dose: 100 mg Famotidine (Pepcid Tab*) 20 mg PO DAILY [facility] Last Admin: 08/29/17 08:21 Dose: 20 mg Heparin Sodium (Porcine) (Heparin Vial(*)) 5,000 units SUBCUT Q8HR [facility] Last Admin: 08/29/17 14:10 Dose: 5,000 units Hydrocortisone (Hytone Cream 1%*) 1 applic TOPICAL BID PRN PRN Reason: itching rash Magnesium Hydroxide (Milk Of Magnesia Liq*) 30 ml PO Q6H PRN PRN Reason: CONSTIPATION Magnesium Oxide (Magox 400 Tab*) 400 mg PO DAILY [facility] Last Admin: 08/29/17 08:21 Dose: 400 mg Multi-Ingredient Liniment/Rub (Yosvany Velasquez*) 1 applic TOPICAL TID PRN PRN Reason: pain Last Admin: 08/28/17 20:33 Dose: 1 applic Nystatin (Nystatin Top Powder*) 1 applic TOPICAL TID [facility] Last Admin: 08/29/17 14:12 Dose: 1 applic Polyvinyl Alcohol (Polyvinyl Alcohol 1.4% Opth*) 1 drop BOTH EYES BID PRN PRN Reason: DRY EYE Last Admin: 08/25/17 09:13 Dose: 1 drop Potassium Chloride (Klor Con Er Tab*) 20 meq PO DAILY [facility] Last Admin: 08/29/17 08:22 Dose: 20 meq Senna (Senokot Tab*) 2 tab PO BEDTIME PRN PRN Reason: CONSTIPATION Last Admin: 08/27/17 20:02 Dose: 2 tab Vital Signs Temp Pulse Resp BP Pulse Ox 98.2 F 93 20 152/77 100 08/29/17 15:45 08/29/17 15:45 08/29/17 18:05 08/29/17 15:45 08/29/17 18:46 EXAM: HEENT: Parkinson facies LUNGS: Clear bilaterally HEART: reg rhythm ABDOMEN: Soft + BS ASSESSMENT/PLAN: 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 Gave first dose of Sinemet at 7 am, may have helped. Will d/w home vs ? 2. UTI: ceftin finished. 3. ETHAN/dehydration: Cr stable on last check. 4. knee pain: Bengay ineffective as was tylenol. Will try Voltaren gel 5. Hypokalemia/hypomagnesemia - resolved. Continue magnesium oxide. KCL 20mEq qday. Recheck P3 Sunday. 6. Thrombocytopenia - improved. 7. Yeast under breasts - nystatin powder tid 8. DVT prophylaxis: s/q heparin 9. Advanced directives - full code. is hcp.
[2017-08-30] MEDS: Acetaminophen TAB* 325 MG PO PRN ×3 (02:58→19:35)
[2017-08-30] MEDS: Heparin VIAL(*) 5000 UNITS/ML VIAL (FIVE THOUSAND) SUBCUT SCH ×3 (06:15→21:51)
[2017-08-30] MEDS: Carbidopa/Levodop 25/100 MG TAB(*) PO SCH ×4 (06:18→20:17)
[2017-08-30] MEDS: Docusate CAP* 100 MG PO SCH ×2 (09:21→20:17)
[2017-08-30] MEDS: Potassium Chlor TAB* 20 MEQ TAB.ER PO SCH (09:21)
[2017-08-30] MEDS: Famotidine TAB* 20 MG PO SCH (09:21)
[2017-08-30] MEDS: Nystatin TOP POWDER* 15 GM BTL TOPICAL SCH ×3 (09:21→21:51)
[2017-08-30] MEDS: Magnesium Oxide TAB* 400 MG PO SCH (09:21)
[2017-08-30] MEDS: CMCS: Diclofenac 1% GEL (NF) 100 GM TUBE TOPICAL PRN (13:03)
--- NOTE | 2017-08-30 18:34 | PN ---
Progress Note - Progress Note Date of Service: 08/30/17 Note: Felicia visited. She continues to note pain in her knees. Doesn't want anything stronger than Tylenol. We will increase the tylenol to 975 mg. She is unclear if the Voltaren gel helped. Current Medications Acetaminophen (Tylenol Tab*) 975 mg PO Q6H PRN PRN Reason: FEVER/PAIN Bisacodyl (Dulcolax Supp*) 10 mg [place] DAILY PRN PRN Reason: CONSTIPATION Last Admin: 08/28/17 07:39 Dose: 10 mg Carbidopa/Levodopa (Sinemet 25/100 Tab(*)) 1.5 tab PO 1200,1600,2000 [facility] Last Admin: 08/30/17 17:06 Dose: 1.5 tab Carbidopa/Levodopa (Sinemet 25/100 Tab(*)) 2 tab PO 0700 [facility] Last Admin: 08/30/17 06:18 Dose: 2 tab Diclofenac Sodium (Voltaren 1% Gel (Nf)) 1 applic TOPICAL TID PRN; Protocol PRN Reason: PAIN - ARTHRITIS Last Admin: 08/30/17 13:03 Dose: 1 applic Docusate Sodium (Colace Cap*) 100 mg PO BID [facility] Last Admin: 08/30/17 09:21 Dose: 100 mg Famotidine (Pepcid Tab*) 20 mg PO DAILY [facility] Last Admin: 08/30/17 09:21 Dose: 20 mg Heparin Sodium (Porcine) (Heparin Vial(*)) 5,000 units SUBCUT Q8HR [facility] Last Admin: 08/30/17 15:17 Dose: 5,000 units Hydrocortisone (Hytone Cream 1%*) 1 applic TOPICAL BID PRN PRN Reason: itching rash Magnesium Hydroxide (Milk Of Magnesia Liq*) 30 ml PO Q6H PRN PRN Reason: CONSTIPATION Magnesium Oxide (Magox 400 Tab*) 400 mg PO DAILY [facility] Last Admin: 08/30/17 09:21 Dose: 400 mg Nystatin (Nystatin Top Powder*) 1 applic TOPICAL TID [facility] Last Admin: 08/30/17 15:19 Dose: 1 applic Polyvinyl Alcohol (Polyvinyl Alcohol 1.4% Opth*) 1 drop BOTH EYES BID PRN PRN Reason: DRY EYE Last Admin: 08/25/17 09:13 Dose: 1 drop Potassium Chloride (Klor Con Er Tab*) 20 meq PO DAILY [facility] Last Admin: 08/30/17 09:21 Dose: 20 meq Senna (Senokot Tab*) 2 tab PO BEDTIME PRN PRN Reason: CONSTIPATION Last Admin: 08/27/17 20:02 Dose: 2 tab Vital Signs Temp Pulse Resp BP Pulse Ox 99.6 F 93 16 159/62 99 08/30/17 17:47 08/30/17 17:47 08/30/17 18:08 08/30/17 17:47 08/30/17 17:47 EXAM: HEENT: Parkinson facies LUNGS: Clear bilaterally HEART: reg rhythm ABDOMEN: Soft + BS ASSESSMENT/PLAN: 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 Gave first dose of Sinemet at 7 am, may have helped. Will d/w home vs ? 2. ETHAN/dehydration: Cr stable on last check. 3. knee pain: Will increase tylenol and continue Voltaren gel 4. Hypokalemia/hypomagnesemia - resolved. Continue magnesium oxide. KCL 20mEq qday. Recheck P3 Sunday. 5. Thrombocytopenia - improved. 6. Yeast under breasts - nystatin powder tid 7. DVT prophylaxis: s/q heparin 8. Advanced directives - full code. is hcp.
[2017-08-31] MEDS: Heparin VIAL(*) 5000 UNITS/ML VIAL (FIVE THOUSAND) SUBCUT SCH ×3 (05:06→21:15)
[2017-08-31] MEDS: Acetaminophen TAB* 325 MG PO PRN ×3 (05:06→19:57)
[2017-08-31] MEDS: Carbidopa/Levodop 25/100 MG TAB(*) PO SCH ×4 (06:21→19:58)
[2017-08-31 07:52] LABS: ABS Basophils 0 10^3/ul (0-0.2); ABS Eosinophils 0.3 10^3/ul (0-0.6); ABS Lymphocytes 1.7 10^3/ul (1.0-4.8); ABS Monocytes 0.5 10^3/ul (0-0.8); ABS Nucleated RBC 0 10^3/ul; Eosinophil % 4.8 % (0-6); Hematocrit 39 % (35-47); Hemoglobin 13.1 g/dl (12.0-16.0); Mean Corpuscular HGB Conc 34 g/dl (31-36); Mean Corpuscular Hemoglobin 32 pg (27-31); Mean Corpuscular Volume 95 fL (80-97); Mean Platelet Volume 8 um3 (7.4-10.4); Nucleated Red Blood Cells % 0.1; Platelet Count 211 10^3/ul (150-450); Red Blood Count 4.07 10^6/ul (4.0-5.4); Red Cell Distribution Width 14 % (10.5-15); White Blood Count 5.5 10^3/ul (3.5-10.8)
[2017-08-31 08:05] LABS: EGFR Non-African American 44.7 (>60)
[2017-08-31] MEDS: Docusate CAP* 100 MG PO SCH ×2 (09:04→19:57)
[2017-08-31] MEDS: Nystatin TOP POWDER* 15 GM BTL TOPICAL SCH ×3 (09:04→19:59)
[2017-08-31] MEDS: Magnesium Oxide TAB* 400 MG PO SCH (09:04)
[2017-08-31] MEDS: Potassium Chlor TAB* 20 MEQ TAB.ER PO SCH (09:04)
[2017-08-31] MEDS: Famotidine TAB* 20 MG PO SCH (09:04)
--- NOTE | 2017-08-31 17:03 | PN ---
Progress Note - Progress Note Date of Service: 08/31/17 Note: Felicia visited. Therapy notes read and reviewed. Some concerns about he going home. Her has aide time hired for 15 hours a day but most of it is at night so he can sleep. Current Medications Acetaminophen (Tylenol Tab*) 975 mg PO Q6H PRN PRN Reason: FEVER/PAIN Last Admin: 08/31/17 11:01 Dose: 975 mg Bisacodyl (Dulcolax Supp*) [address] DAILY PRN PRN Reason: CONSTIPATION Last Admin: 08/28/17 07:39 Dose: 10 mg Carbidopa/Levodopa (Sinemet 25/100 Tab(*)) 1.5 tab PO 1200,1600,2000 [facility] Last Admin: 08/31/17 15:49 Dose: 1.5 tab Carbidopa/Levodopa (Sinemet 25/100 Tab(*)) 2 tab PO 0700 [facility] Last Admin: 08/31/17 06:21 Dose: 2 tab Diclofenac Sodium (Voltaren 1% Gel (Nf)) 1 applic TOPICAL TID PRN; Protocol PRN Reason: PAIN - ARTHRITIS Last Admin: 08/30/17 13:03 Dose: 1 applic Docusate Sodium (Colace Cap*) 100 mg PO BID [facility] Last Admin: 08/31/17 09:04 Dose: 100 mg Famotidine (Pepcid Tab*) 20 mg PO DAILY [facility] Last Admin: 08/31/17 09:04 Dose: 20 mg Heparin Sodium (Porcine) (Heparin Vial(*)) 5,000 units SUBCUT Q8HR [facility] Last Admin: 08/31/17 14:11 Dose: 5,000 units Hydrocortisone (Hytone Cream 1%*) 1 applic TOPICAL BID PRN PRN Reason: itching rash Magnesium Hydroxide (Milk Of Magnesia Liq*) 30 ml PO Q6H PRN PRN Reason: CONSTIPATION Magnesium Oxide (Magox 400 Tab*) 400 mg PO DAILY [facility] Last Admin: 08/31/17 09:04 Dose: 400 mg Nystatin (Nystatin Top Powder*) 1 applic TOPICAL TID [facility] Last Admin: 08/31/17 14:12 Dose: 1 applic Polyvinyl Alcohol (Polyvinyl Alcohol 1.4% Opth*) 1 drop BOTH EYES BID PRN PRN Reason: DRY EYE Last Admin: 01/13/18 09:13 Dose: 1 drop Potassium Chloride (Klor Con Er Tab*) 20 meq PO DAILY [facility] Last Admin: 08/31/17 09:04 Dose: 20 meq Senna (Senokot Tab*) 2 tab PO BEDTIME PRN PRN Reason: CONSTIPATION Last Admin: 08/27/17 20:02 Dose: 2 tab Laboratory Results - last 24 hr 08/31/17 08/31/17 07:19 07:19 WBC 5.5 RBC 4.07 Hgb 13.1 Hct 39 MCV 95 MCH 32 H MCHC 34 RDW 14 Plt Count 211 MPV 8 Neut % (Auto) 54.0 Lymph % (Auto) 31.0 [place] % (Auto) 9.3 H Eos % (Auto) 4.8 Baso % (Auto) 0.9 Absolute Neuts (auto) 3.0 Absolute Lymphs (auto) 1.7 Absolute Monos (auto) 0.5 Absolute Eos (auto) 0.3 Absolute Basos (auto) 0 Absolute Nucleated RBC 0 Nucleated RBC % 0.1 Sodium 138 Potassium 4.3 Chloride 104 Carbon Dioxide 27 Anion Gap 7 BUN 21 Creatinine 1.17 H Est GFR ( Amer) 57.5 Est GFR (Non-Af Amer) 44.7 BUN/Creatinine Ratio 17.9 Glucose 120 H Calcium 9.6 Total Bilirubin 0.60 AST 15 ALT 3 L Alkaline Phosphatase 60 Total Protein 6.5 Albumin 3.9 Globulin 2.6 Albumin/Globulin Ratio 1.5 Vital Signs Temp Pulse Resp BP Pulse Ox 97.4 F 80 20 156/70 99 08/31/17 15:43 08/31/17 15:43 08/31/17 15:43 08/31/17 15:43 08/31/17 15:43 EXAM: HEENT: Parkinson facies LUNGS: Clear bilaterally HEART: reg rhythm ABDOMEN: Soft + BS EXTREMITIES: Tremor ASSESSMENT/PLAN: 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 Gave first dose of Sinemet at 7 am, may have helped. Will d/w home vs ? 2. ETHAN/dehydration: Cr stable on last check. 3. knee pain: increased tylenol and continue Voltaren gel 4. Hypokalemia/hypomagnesemia - resolved. Continue magnesium oxide. KCL 20mEq qday. 5. Thrombocytopenia - improved. 6. Yeast under breasts - nystatin powder tid 7. DVT prophylaxis: s/q heparin 8. Advanced directives - full code. is hcp.
[2017-08-31] MEDS: CMCS: Diclofenac 1% GEL (NF) 100 GM TUBE TOPICAL PRN (19:58)
[2017-09-01] MEDS: Acetaminophen TAB* 325 MG PO PRN ×3 (04:28→21:12)
[2017-09-01] MEDS: Heparin VIAL(*) 5000 UNITS/ML VIAL (FIVE THOUSAND) SUBCUT SCH ×3 (05:52→21:17)
[2017-09-01] MEDS: Carbidopa/Levodop 25/100 MG TAB(*) PO SCH ×4 (05:52→20:19)
[2017-09-01] MEDS: Magnesium Oxide TAB* 400 MG PO SCH (08:10)
[2017-09-01] MEDS: Potassium Chlor TAB* 20 MEQ TAB.ER PO SCH (08:10)
[2017-09-01] MEDS: Famotidine TAB* 20 MG PO SCH (08:10)
[2017-09-01] MEDS: Docusate CAP* 100 MG PO SCH ×2 (08:10→20:19)
[2017-09-01] MEDS: CMCS: Diclofenac 1% GEL (NF) 100 GM TUBE TOPICAL PRN ×4 (08:12→20:22)
[2017-09-01] MEDS: Nystatin TOP POWDER* 15 GM BTL TOPICAL SCH ×3 (09:24→20:22)
--- NOTE | 2017-09-01 15:00 | PN ---
Progress Note - Progress Note Date of Service: 09/01/17 Note: Felicia visited. She notes pain in her knees. She is also wondering if an increase in her Sinemet dose would be useful. I explained that we would need to ask neurology. Current Medications Acetaminophen (Tylenol Tab*) 975 mg PO Q6H PRN PRN Reason: FEVER/PAIN Last Admin: 09/01/17 10:30 Dose: 975 mg Bisacodyl (Dulcolax Supp*) 10 mg [place] DAILY PRN PRN Reason: CONSTIPATION Last Admin: 08/28/17 07:39 Dose: 10 mg Carbidopa/Levodopa (Sinemet 25/100 Tab(*)) 1.5 tab PO 1200,1600,2000 [facility] Last Admin: 09/01/17 12:16 Dose: 1.5 tab Carbidopa/Levodopa (Sinemet 25/100 Tab(*)) 2 tab PO 0700 [facility] Last Admin: 09/01/17 05:52 Dose: 2 tab Diclofenac Sodium (Voltaren 1% Gel (Nf)) 1 applic TOPICAL TID PRN; Protocol PRN Reason: PAIN - ARTHRITIS Last Admin: 09/01/17 12:44 Dose: 1 applic Docusate Sodium (Colace Cap*) 100 mg PO BID [facility] Last Admin: 09/01/17 08:10 Dose: 100 mg Famotidine (Pepcid Tab*) 20 mg PO DAILY [facility] Last Admin: 09/01/17 08:10 Dose: 20 mg Heparin Sodium (Porcine) (Heparin Vial(*)) 5,000 units SUBCUT Q8HR [facility] Last Admin: 09/01/17 14:04 Dose: 5,000 units Hydrocortisone (Hytone Cream 1%*) 1 applic TOPICAL BID PRN PRN Reason: itching rash Magnesium Hydroxide (Milk Of Magnesia Liq*) 30 ml PO Q6H PRN PRN Reason: CONSTIPATION Magnesium Oxide (Magox 400 Tab*) 400 mg PO DAILY [facility] Last Admin: 09/01/17 08:10 Dose: 400 mg Nystatin (Nystatin Top Powder*) 1 applic TOPICAL TID [facility] Last Admin: 09/01/17 15:00 Dose: Not Given Polyvinyl Alcohol (Polyvinyl Alcohol 1.4% Opth*) 1 drop BOTH EYES BID PRN PRN Reason: DRY EYE Last Admin: 08/25/17 09:13 Dose: 1 drop Potassium Chloride (Klor Con Er Tab*) 20 meq PO DAILY [facility] Last Admin: 09/01/17 08:10 Dose: 20 meq Senna (Senokot Tab*) 2 tab PO BEDTIME PRN PRN Reason: CONSTIPATION Last Admin: 08/27/17 20:02 Dose: 2 tab Vital Signs Temp Pulse Resp BP Pulse Ox 98.9 F 91 20 154/71 98 09/01/17 04:30 09/01/17 04:30 09/01/17 05:17 09/01/17 04:30 09/01/17 08:00 EXAM: HEENT: Parkinson facies LUNGS: Clear bilaterally HEART: reg rhythm ABDOMEN: Soft + BS EXTREMITIES: Tremor ASSESSMENT/PLAN: 1. 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 Gave first dose of Sinemet at 7 am, may have helped. Will d/w home vs ? 2. ETHAN/dehydration: Cr 1.17 on last check. 3. knee pain: increased tylenol and continue Voltaren gel 4. Hypokalemia/hypomagnesemia - resolved. Continue magnesium oxide. KCL 20mEq qday. 5. Thrombocytopenia - improved. 6. Yeast under breasts - nystatin powder tid 7. DVT prophylaxis: s/q heparin 8. Advanced directives - full code. is hcp.
[2017-09-02] MEDS: Hydrocortisone 1% CREAM* 30 GM TUBE TOPICAL PRN ×3 (03:32→19:18)
[2017-09-02] MEDS: Acetaminophen TAB* 325 MG PO PRN ×3 (05:31→19:28)
[2017-09-02] MEDS: Carbidopa/Levodop 25/100 MG TAB(*) PO SCH ×4 (05:32→20:00)
[2017-09-02] MEDS: Heparin VIAL(*) 5000 UNITS/ML VIAL (FIVE THOUSAND) SUBCUT SCH ×3 (05:34→21:06)
[2017-09-02] MEDS: Famotidine TAB* 20 MG PO SCH (09:27)
[2017-09-02] MEDS: Magnesium Oxide TAB* 400 MG PO SCH (09:27)
[2017-09-02] MEDS: Docusate CAP* 100 MG PO SCH ×2 (09:28→19:59)
[2017-09-02] MEDS: Potassium Chlor TAB* 20 MEQ TAB.ER PO SCH (09:28)
[2017-09-02] MEDS: Nystatin TOP POWDER* 15 GM BTL TOPICAL SCH ×3 (09:30→19:59)
[2017-09-02] MEDS: CMCS: Diclofenac 1% GEL (NF) 100 GM TUBE TOPICAL PRN ×4 (10:16→21:06)
--- NOTE | 2017-09-02 13:37 | PN ---
Progress Note - Progress Note Date of Service: 09/02/17 Note: Felicia visited. Nursing notes reviewed. She feels like she still has pain in her knees and is not sure Voltaren gel works any better than Yosvany-Velasquez. Current Medications Acetaminophen (Tylenol Tab*) 975 mg PO Q6H PRN PRN Reason: FEVER/PAIN Last Admin: 09/02/17 12:06 Dose: 975 mg Bisacodyl (Dulcolax Supp*) 10 mg [place] DAILY PRN PRN Reason: CONSTIPATION Last Admin: 08/28/17 07:39 Dose: 10 mg Carbidopa/Levodopa (Sinemet 25/100 Tab(*)) 1.5 tab PO 1200,1600,2000 [facility] Last Admin: 09/02/17 12:05 Dose: 1.5 tab Carbidopa/Levodopa (Sinemet 25/100 Tab(*)) 2 tab PO 0700 [facility] Last Admin: 09/02/17 05:32 Dose: 2 tab Diclofenac Sodium (Voltaren 1% Gel (Nf)) 1 applic TOPICAL TID PRN; Protocol PRN Reason: PAIN - ARTHRITIS Last Admin: 09/02/17 10:16 Dose: 1 applic Docusate Sodium (Colace Cap*) 100 mg PO BID [facility] Last Admin: 09/02/17 09:28 Dose: 100 mg Famotidine (Pepcid Tab*) 20 mg PO DAILY [facility] Last Admin: 09/02/17 09:27 Dose: 20 mg Heparin Sodium (Porcine) (Heparin Vial(*)) 5,000 units SUBCUT Q8HR [facility] Last Admin: 09/02/17 05:34 Dose: 5,000 units Hydrocortisone (Hytone Cream 1%*) 1 applic TOPICAL BID PRN PRN Reason: itching rash Last Admin: 09/02/17 10:16 Dose: 1 applic Magnesium Hydroxide (Milk Of Magnesia Liq*) 30 ml PO Q6H PRN PRN Reason: CONSTIPATION Magnesium Oxide (Magox 400 Tab*) 400 mg PO DAILY [facility] Last Admin: 09/02/17 09:27 Dose: 400 mg Nystatin (Nystatin Top Powder*) 1 applic TOPICAL TID [facility] Last Admin: 09/02/17 09:30 Dose: 1 applic Polyvinyl Alcohol (Polyvinyl Alcohol 1.4% Opth*) 1 drop BOTH EYES BID PRN PRN Reason: DRY EYE Last Admin: 08/25/17 09:13 Dose: 1 drop Potassium Chloride (Klor Con Er Tab*) 20 meq PO DAILY [facility] Last Admin: 09/02/17 09:28 Dose: 20 meq Senna (Senokot Tab*) 2 tab PO BEDTIME PRN PRN Reason: CONSTIPATION Last Admin: 08/27/17 20:02 Dose: 2 tab Vital Signs Temp Pulse Resp BP Pulse Ox 98.5 F 83 18 154/78 100 09/02/17 05:33 09/02/17 05:33 09/02/17 05:33 09/02/17 05:33 09/02/17 08:00 EXAM: HEENT: Parkinson facies LUNGS: Clear bilaterally HEART: reg rhythm ABDOMEN: Soft + BS EXTREMITIES: Tremor ASSESSMENT/PLAN: 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 Gave first dose of Sinemet at 7 am, may have helped. Will d/w home vs ? 2. ETHAN/dehydration: Cr 1.17 on last check. 3. knee pain: increased tylenol and continue Voltaren gel 4. Thrombocytopenia: improved. Last platelet count 211K 5. Yeast under breasts: nystatin powder tid 6. DVT prophylaxis: s/q heparin 7. Advanced directives: full code. is hcp.
[2017-09-03] MEDS: Acetaminophen TAB* 325 MG PO PRN ×3 (00:26→16:21)
[2017-09-03] MEDS: CMCS: Diclofenac 1% GEL (NF) 100 GM TUBE TOPICAL PRN ×3 (03:31→20:27)
[2017-09-03] MEDS: Artificial Tears* 15 ML BTL BOTH EYES PRN (05:54)
[2017-09-03] MEDS: Carbidopa/Levodop 25/100 MG TAB(*) PO SCH ×4 (05:57→19:51)
[2017-09-03] MEDS: Heparin VIAL(*) 5000 UNITS/ML VIAL (FIVE THOUSAND) SUBCUT SCH ×3 (05:58→21:15)
[2017-09-03] MEDS: Nystatin TOP POWDER* 15 GM BTL TOPICAL SCH ×3 (08:53→19:52)
[2017-09-03] MEDS: Hydrocortisone 1% CREAM* 30 GM TUBE TOPICAL PRN (08:53)
[2017-09-03] MEDS: Docusate CAP* 100 MG PO SCH ×2 (08:54→19:51)
[2017-09-03] MEDS: Famotidine TAB* 20 MG PO SCH (08:54)
[2017-09-03] MEDS ORDERED: traMADol TAB* 50 MG PO PRN (12:06)
--- NOTE | 2017-09-03 12:09 | PN ---
Progress Note - Progress Note Date of Service: 09/03/17 Note: Felicia visited. She says the pain in her knees is severe and she is willing to try 1/2 a Tramadol. Therapy notes read and reviewed. She will be discharged home tomorrow. Current Medications Acetaminophen (Tylenol Tab*) 975 mg PO Q6H PRN PRN Reason: FEVER/PAIN Last Admin: 09/03/17 08:54 Dose: 975 mg Bisacodyl (Dulcolax Supp*) 10 mg [place] DAILY PRN PRN Reason: CONSTIPATION Last Admin: 08/28/17 07:39 Dose: 10 mg Carbidopa/Levodopa (Sinemet 25/100 Tab(*)) 1.5 tab PO 1200,1600,2000 [facility] Last Admin: 09/03/17 12:05 Dose: 1.5 tab Carbidopa/Levodopa (Sinemet 25/100 Tab(*)) 2 tab PO 0700 [facility] Last Admin: 09/03/17 05:57 Dose: 2 tab Diclofenac Sodium (Voltaren 1% Gel (Nf)) 1 applic TOPICAL TID PRN; Protocol PRN Reason: PAIN - ARTHRITIS Last Admin: 09/03/17 11:02 Dose: 1 applic Docusate Sodium (Colace Cap*) 100 mg PO BID [facility] Last Admin: 09/03/17 08:54 Dose: 100 mg Famotidine (Pepcid Tab*) 20 mg PO DAILY [facility] Last Admin: 09/03/17 08:54 Dose: 20 mg Heparin Sodium (Porcine) (Heparin Vial(*)) 5,000 units SUBCUT Q8HR [facility] Last Admin: 09/03/17 05:58 Dose: 5,000 units Hydrocortisone (Hytone Cream 1%*) 1 applic TOPICAL BID PRN PRN Reason: itching rash Last Admin: 09/03/17 08:53 Dose: 1 applic Magnesium Hydroxide (Milk Of Magnesia Liq*) 30 ml PO Q6H PRN PRN Reason: CONSTIPATION Nystatin (Nystatin Top Powder*) 1 applic TOPICAL TID [facility] Last Admin: 09/03/17 08:53 Dose: 1 applic Polyvinyl Alcohol (Polyvinyl Alcohol 1.4% Opth*) 1 drop BOTH EYES BID PRN PRN Reason: DRY EYE Last Admin: 09/03/17 05:54 Dose: 1 drop Senna (Senokot Tab*) 2 tab PO BEDTIME PRN PRN Reason: CONSTIPATION Last Admin: 08/27/17 20:02 Dose: 2 tab Tramadol HCl (Ultram*) 25 mg PO Q6H PRN PRN Reason: PAIN - ARTHRITIS Vital Signs Temp Pulse Resp BP Pulse Ox 98.4 F 74 18 155/86 99 09/03/17 05:54 09/03/17 05:54 09/03/17 05:54 09/03/17 05:54 09/03/17 08:58 EXAM: HEENT: Parkinson facies LUNGS: Clear bilaterally HEART: reg rhythm ABDOMEN: Soft + BS EXTREMITIES: Tremor. Increased tone. 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 Gave first dose of Sinemet at 7 am, may have helped. Will d/w home vs ? 2. ETHAN/dehydration: Cr 1.17 on last check. 3. knee pain: Will try Tramadol. Will continue tylenol 975 mg 4. Thrombocytopenia: improved. Last platelet count 211K 5. Yeast under breasts: nystatin powder tid 6. DVT prophylaxis: s/q heparin 7. Advanced directives: full code. is hcp.
[2017-09-04] MEDS: Heparin VIAL(*) 5000 UNITS/ML VIAL (FIVE THOUSAND) SUBCUT SCH (06:04)
[2017-09-04] MEDS: Carbidopa/Levodop 25/100 MG TAB(*) PO SCH ×2 (06:40→12:04)
[2017-09-04 06:45] VITALS: BP 146/67
[2017-09-04] MEDS: Docusate CAP* 100 MG PO SCH (08:02)
[2017-09-04] MEDS: Acetaminophen TAB* 325 MG PO PRN (08:02)
[2017-09-04] MEDS: Famotidine TAB* 20 MG PO SCH (08:02)
[2017-09-04] MEDS: Nystatin TOP POWDER* 15 GM BTL TOPICAL SCH (08:03)
--- NOTE | 2017-09-05 14:01 | DS ---
CC: Dr. Edson Parra * DISCHARGE SUMMARY: DATE OF ADMISSION: 08/24/17 DATE OF DISCHARGE: 09/04/17. DISCHARGE DIAGNOSES: 1. Parkinson's disease. 2. Osteoarthritis. 3. History of right distal radius fracture. 4. Gastroesophageal reflux disease. 5. Peripheral neuropathy. 6. Hypothyroidism. 7. Urinary traction infection. HISTORY OF ILLNESS AND HOSPITAL COURSE: For complete history of the events leading up to her rehab stay, please see the history and physical dictated by Dr. Makenzie Ortega on 08/24/17. While on the rehab unit, the patient finished treatment for urinary tract infection with Ceftin. She complained of knee pain. She was put back on her Bengay, which she took prior to her admission. This did not seem to be effective for her, so she was tried on Voltaren gel. The Voltaren gel did not seem to be any more effective than the Bengay. The patient did not wish to try opioids. Ultimately she tried half tramadol but she felt this made her too sleepy and she did not want to take that either. The patient was told by her primary care doctor that she should not be taking NSAIDs because of her kidney problems. The patient may try Tylenol No. 3 after discharge, which she was on before admission. The patient was otherwise medically stable while on the rehab unit. The patient was seen by both Physical Therapy and Occupational Therapy and made good gains with both disciplines. With Physical Therapy at the time of admission, the patient required moderate amount of assistance to do a transfer. She was able to ambulate 10 feet with moderate amount of assistance. With occupational therapy at the time of admission, the patient required max assist for upper body dressing, total assistance for lower body dressing, total assistance for toileting, max assist of 2 people for toilet transfers. By the time of discharge, the patient had improved. She was transferring with contact guard, ambu1*1/2lating 150 feet with contact guard. She remained total assistance for toileting and clothing management. For dressing, she was requiring some assistance for upper body dressing, getting clothing over her head. The patient 's family already had 15 hours of aide time prior to admission. Family training was done prior to discharge. The patient's agreed to take her home. She was discharged home on 09/04/17. DISCHARGE DIET: Regular. DISCHARGE MEDICATIONS: Included: 1. Sinemet 25/100 two tablets at 7 a.m., 1-1/2 tablets at 12 noon, 4 p.m., and 8 p.m. 2. Tylenol 1000 mg every 6 hours as needed. 3. Artificial tears 1 drop both eyes twice daily as needed. 4. Cranberry 500 mg once daily with a meal. SERVICES AFTER DISCHARGE: Through [facility]. They have 15 hours of home health aide time through the visiting nurse service. She will also have detention and skilled physical therapy. Follow up with her primary care doctor, Dr. Edson Parra as well as with Dr. Iván Babocck, her neurologist. [id number]/CPS #: [id number] PAULIE
== END 2017-09-04 13:21 | disposition home health service (06) | DRG 57 ==
LOC: PMRU 11:17 → UNDOADMIN 12:17 → PMRU 15:12
PROVIDERS: ADMIT Physical Medicine & Rehabilitation; ATTEND Physical Medicine & Rehabilitation
PROC: F07Z5ZZ Bed Mobility Treatment (ICD-10-PCS; principal; 2017-08-24)
PROC: F07Z9ZZ Gait Training/Functional Ambulation Treatment (ICD-10-PCS; 2017-08-24)
PROC: F07Z8ZZ Transfer Training Treatment (ICD-10-PCS; 2017-08-24)
PROC: F08Z0ZZ Bathing/Showering Techniques Treatment (ICD-10-PCS; 2017-08-24)
PROC: F08Z1ZZ Dressing Techniques Treatment (ICD-10-PCS; 2017-08-24)
PROC: F08Z3ZZ Feeding/Eating Treatment (ICD-10-PCS; 2017-08-24)
PROC: F08Z2ZZ Grooming/Personal Hygiene Treatment (ICD-10-PCS; 2017-08-24)
DX: G20 Parkinson's disease (principal); N17.9 Acute kidney failure, unspecified; G62.9 Polyneuropathy, unspecified; D69.6 Thrombocytopenia, unspecified; E83.42 Hypomagnesemia; E86.0 Dehydration; N39.0 Urinary tract infection, site not specified; K21.9 Gastro-esophageal reflux disease without esophagitis; M19.90 Unspecified osteoarthritis, unspecified site; E03.9 Hypothyroidism, unspecified; Z96.611 Presence of right artificial shoulder joint; E87.6 Hypokalemia; E78.5 Hyperlipidemia, unspecified; B96.1 Klebsiella pneumoniae [K. pneumoniae] as the cause of diseases classified elsewhere; Z79.01 Long term (current) use of anticoagulants; Z79.1 Long term (current) use of non-steroidal anti-inflammatories (NSAID); Z79.899 Other long term (current) drug therapy; Z88.5 Allergy status to narcotic agent; Z88.2 Allergy status to sulfonamides; Z88.8 Allergy status to other drugs, medicaments and biological substances; Z88.1 Allergy status to other antibiotic agents; Z91.041 Radiographic dye allergy status
CPT/HCPCS: 36415; 80048; 80053; 83735; 85025; A9270-GY; J1644

== ENCOUNTER 2018-01-14 17:16 | Emergency (ER) | payer MEDICARE, BC ==
--- OUTSIDE RECORDS SUMMARY | 2018-01-14 17:56 | XMS REPORT ---
:1940 External Reference #:[id number] Author Organization [facility] Address [address] [place] [address] Phone [phone] Care Team Providers Name Role Phone Edson Parra M.D. Primary Care Physician Unavailable Payers Type Date Identification Numbers Payment Provider Subscriber Medicare Primary Effective: Policy Number: Medicare - NGS Felicia Omer 2005 [id number] PayID: [id number] [address] [place] [address] Medigap Part B Policy Number: [id number] BS [place] [employer] Felicia Omer PayID: [id number] [address] [address] [place] [address] Problems Date Description Provider Status Onset: 12/23/2014 Parkinson's disease Sofy Be O.D. Active Onset: 12/23/2014 Seizure Sofy Be O.D. 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 Active Onset: 12/23/2014 Essential hypertension Sofy Be O.D. Active Onset: 12/23/2014 Cataract Sofy Be O.D. Active Onset: 12/23/2014 Diplopia Sofy Be O.D. Active Onset: 12/23/2014 Nuclear senile cataract Sofy Be O.D. Active Onset: 12/23/2014 Tear film insufficiency Sofy Be O.D. Active Onset: 12/23/2014 Internal hordeolum Sofy Be O.D. Active Onset: 12/23/2014 Blepharitis Sofy Be O.D. Active Onset: 06/28/2015 Combined form of senile cataract Sofy Be O.D. Active Onset: 06/28/2015 Angular blepharoconjunctivitis Sofy Be O.D. Active Onset: 01/05/2016 Vitreous degeneration Sofy Be O.D. Active Onset: 01/05/2016 Retinal drusen Sofy Be O.D. Active Onset: 11/02/2016 Dizziness and giddiness Kathy Bansal O.D. Active Onset: 11/02/2016 Strabismic amblyopia Kathy Bansal O.D. Active Family History Date Family Member(s) Problem(s) Comments Father Unknown Mother Glaucoma Mother Cataract Social History Type Date Description Comments Marital Status Legal Status: Occupation Retired [place] ETOH Use Denies alcohol use Smoking Patient has never smoked Recreational Drug Use Denies Drug Use Daily Caffeine Does Not Consume Caffeine Allergies, Adverse Reactions, Alerts Date Description Reaction Status Severity Comments 12/23/2014 Betadine active 12/23/2014 Vioxx active 12/23/2014 Prevacid active 12/23/2014 Sulfa Antibiotics active 12/23/2014 Erythromycin active 12/23/2014 Cipro active 12/23/2014 Levaquin active 12/23/2014 Doxycycline active 12/23/2014 Aciphex active 12/23/2014 Contrast Dye active 12/23/2014 Depo-Medrol active 12/23/2014 Lorabid active Medications Medication Date Status Form Strength Qnty SIG Indications Ordering Provider Systane 12/22/ Active Solution 0.4-0.3% as needed Sofy Be O.D. Ranitidine HCL / Active Tablets 150mg Unknown 0000 Cranberry / Active Capsules 500mg Unknown Concentrate 0000 Calcium 500+D / Active Tablets 500-200mg- Unknown 0000 Unit Preservision / Active Capsules Areds 2 1 cap by Unknown Areds 2 0000 mouth twice a day Carbidopa-Levodo / Active Tablets 25-100mg peter Babcock M.D. Vitamin B-12 ER / Active Tablets ER 1000mcg take 1 Unknown 0000 tablet by mouth once daily Gabapentin 00/00/ Active Capsules 100mg [place], 0000 Edson Mullen [place] 3-6-9 / Active Capsules 1200mg Alonzo 0000 Paz Ugalde Tobrex 16/ Hx Ointment 0.3% 3.500g apply to H10.523 Sofy Michaud 2014 - all lids [place], 01/03/ at O.D. 2016 bedtime Tobradex 12/23/ Hx Ointment 0.3-0.1% 3.500g apply to 373.00 Sofy Michaud 2014 - all lids [place], 06/27/ at O.DJavid 2014 bedtime for 3 weeks Cod Liver Oil 12/22/ Hx Capsules Sofy Michaud 2014sayra, 12/19/ O.D. 2017 Carbidopa-Levodo / Hx Tablets 25-100mg Unknown pa - 2015 Indapamide / Hx Tablets 1.25mg Unknown 2016 Zantac / Hx Solution 150mg/6ML Unknown - 2017 Vitamin C / Hx Chewtabs 500mg Unknown - 2017 Multi Vitamin / Hx Tablets Unknown Daily - 2017 Levothyroxine / Hx Tablets 25mcg Unknown Sodium 2017 Cyanocobalamin / Hx Solution 1000mcg/ML Sadiq 0000 Dana Minor 12/19/ M.DJavid 2017 Results Description No Information Procedures Date CPT Code Description Status 12/20/2017 77239 Determination Of Refractive State Completed 12/20/2017 85781 Est Patient Comprehensive Exam Completed 11/05/2017 23214 Determination Of Refractive State Completed 11/05/2017 43031 Est Patient Comprehensive Exam Completed 11/05/2017 613 Proomega Tablets Completed 05/24/2017 38140 Est Patient Comprehensive Exam Completed 01/11/2017 08577 Est Patient Comprehensive Exam Completed 11/02/2016 39362 Est Patient Comprehensive Exam Completed 11/02/2016 613 Proomega Tablets Completed 07/10/2016 601 [place] Completed 07/10/2016 613 Proomega Tablets Completed 07/10/2016 59026 Est Patient Comprehensive Exam Completed 07/10/2016 93516 Scanning Computerized Opthalmic Diagnostic Posterior Completed Seg Retina 01/05/2016 38891 Determination Of Refractive State Completed 01/05/2016 34129 Est Patient Comprehensive Exam Completed 06/28/2015 30004 Est Patient Comprehensive Exam Completed 06/28/2015 613 Proomega Tablets Completed 01/25/2015 613 Proomega Tablets Completed 12/23/2014 00755 Determination Of Refractive State Completed 12/23/2014 23028 Est Patient Comprehensive Exam Completed 06/26/2014 613 Proomega Tablets Completed 06/26/2014 43691 Est Patient Comprehensive Exam Completed 03/11/2014 77743 Scanning Computerized Opthalmic Diagnostic Posterior Completed Seg Retina 03/11/2014 65785 Est Patient Intermediate Exam Completed 03/11/2014 613 Proomega Tablets Completed 12/24/2013 14571 Est Patient Comprehensive Exam Completed 12/24/2013 613 Proomega Tablets Completed 06/26/2013 516 Cod Liver Oil Tablets Completed 05/29/2013 76866 Visual Field Exam Extended Completed 05/29/2013 47073 Est Patient Intermediate Exam Completed 03/06/2013 516 Cod Liver Oil Tablets Completed 02/21/2013 81249 Est Patient Comprehensive Exam Completed 02/14/2013 52677 Scanning Computerized Opthalmic Diagnostic Posterior Completed Seg Retina 02/14/2013 46567 Est Patient Comprehensive Exam Completed 02/11/2013 42203 Est Patient Intermediate Exam Completed 01/09/2013 34720 Scanning Computerized Opthalmic Diagnostic Posterior Completed Seg Retina 01/09/2013 29417 Est Patient Comprehensive Exam Completed 10/28/2012 93483 Determination Of Refractive State Completed 10/28/2012 19066 Est Patient Comprehensive Exam Completed 10/24/2012 516 Cod Liver Oil Tablets Completed 06/19/2012 516 Cod Liver Oil Tablets Completed 04/29/2012 71034 Est Patient Comprehensive Exam Completed 03/15/2012 516 Cod Liver Oil Tablets Completed 02/03/2012 03314 Est Patient Intermediate Exam Completed 12/06/2011 516 Cod Liver Oil Tablets Completed 10/27/2011 42597 Scanning Computerized Opthalmic Diagnostic Posterior Completed Seg Retina 10/27/2011 77967 Est Patient Comprehensive Exam Completed 08/18/2011 516 Cod Liver Oil Tablets Completed 07/31/2011 03941 Est Patient Comprehensive Exam Completed 05/11/2011 516 Cod Liver Oil Tablets Completed 01/23/2011 516 Cod Liver Oil Tablets Completed 10/20/2010 516 Cod Liver Oil Tablets Completed 07/15/2010 26277 Est Patient Intermediate Exam Completed 06/22/2010 28569 Est Patient Intermediate Exam Completed 06/22/2010 516 Cod Liver Oil Tablets Completed 03/25/2010 516 Recheck Completed 03/09/2010 24925 Determination Of Refractive State Completed 03/09/2010 07992 Est Patient Comprehensive Exam Completed 02/15/2010 516 Cod Liver Oil Tablets Completed 11/04/2009 516 Cod Liver Oil Tablets Completed 09/08/2009 07201 Est Patient Comprehensive Exam Completed 07/16/2009 516 Cod Liver Oil Tablets Completed 04/13/2009 516 Cod Liver Oil Tablets Completed 12/29/2008 516 Cod Liver Oil Tablets Completed 09/14/2008 516 Cod Liver Oil Tablets Completed 05/11/2008 516 Cod Liver Oil Tablets Completed 02/07/2008 516 Cod Liver Oil Tablets Completed 11/06/2007 53519 Est Patient Comprehensive Exam Completed 11/06/2007 516 Cod Liver Oil Tablets Completed 07/08/2007 82306 Determination Of Refractive State Completed 07/08/2007 82798 Est Patient Comprehensive Exam Completed 05/06/2007 23159 Est Patient Comprehensive Exam Completed 04/22/2007 516 Cod Liver Oil Tablets Completed 09/17/2006 16138 Est Patient Intermediate Exam Completed 02/02/2006 49457 Est Patient Intermediate Exam Completed 12/29/2005 58516 Fundus Photography With Interpretation And Report Completed 12/29/2005 17533 Est Patient Comprehensive Exam Completed 12/29/2005 516 Cod Liver Oil Tablets Completed 12/29/2005 510 Eye Scrubs 30 Count Completed 10/06/2005 516 Cod Liver Oil Tablets Completed 06/02/2005 516 Cod Liver Oil Tablets Completed 05/01/2005 98706 Est Patient Comprehensive Exam Completed 08/25/2004 13126 Close Lacrimal Punctum, Plug Completed 06/30/2004 04425 Est Patient Comprehensive Exam Completed 06/17/2004 93623 Est Patient Comprehensive Exam Completed Encounters Type Date Location Provider CPT E/M Dx Office Visit 09/28/2014 11:45a Edson Christian MD, Kathy Bansal O.D. [id number] 373.00 pc Office Visit 06/26/2013 10:30a Edson Christian MD, Sofy Be, 89544 368.2 pc O.D. Office Visit 02/09/2012 11:10a Edson Christian MD, Sofy Be, 79813 373.12 pc O.D. Office Visit 02/05/2012 11:10a Edson Christian MD, Sofy Be, 33790 373.00 pc O.D. Office Visit 07/28/2010 11:30a Edson Christian MD, Makenzie Jeffery, 58555 373.00 pc O.D. Office Visit 07/10/2007 1:45p Edson Christian MD, Stan Calles M.D. 75083 379.24 pc Office Visit 10/28/2004 11:15a Edson Christian MD, Edson Christian, 51633 375.15 pc M.D. Office Visit 08/02/2004 2:30p Edson Christian MD, Edson Christian, 39026 375.15 pc M.D. 373.00 Office Visit 11/02/2003 11:45a Edson Christian MD, [place] [address] 379.21 Plan of Care Future Appointment(s):02/21/2018 9:15 am - Alonzo Ugalde M.D. at [facility], 05/08/2018 11:00 am - Alonzo Ugalde M.D. at [facility] , 12/20/2017 - Alonzo Uglade M.D.H53.2 DiplopiaComments:Smoking can increase the risk of developing or worsening any eye related disease, as well as affect your overall health. If you are a smoker, we strongly recommend that you quit.If you are not a smoker, we strongly recommend that you do not start. I WILL GIVE YOU A NEW GLASSES PRESCRIPTION WITH PRISM IN THEM TO HELP WITH THE DOUBLE VISIONFollow up:2 Month Follow Up DIPLOPIA CHECK At your next visit, we are not planning to dilate your eyes. However, if you have any changes in your vision or new symptoms, there are certain situations that requireus to dilate your eyes. If Dr. Ugalde requests any additional testing, that may require extra time. If you have any questions before your next appointment, please call our office at .H25.13 Age-related nuclear cataract, bilateralComments:You have been diagnosed with cataracts. If you are happy with your vision as it is now, then we willsee you at your next scheduled appointment. If you feel like your vision is getting worse before your scheduled appointment, please call [facility] at [phone].H35.412 Lattice degeneration of retina, left eyeComments:CALL WITH AN INCREASE IN THE FLASHES OR NEW FLOATING SPOTS IN THE VISION
--- OUTSIDE RECORDS SUMMARY | 2018-01-14 17:57 | XMS REPORT ---
:1940 External Reference #:[id number] Author Organization [facility] Seen Address [address] [place] [address] Phone [phone] Care Team Providers Name Role Phone Edson Parra M.D. Primary Care Physician Unavailable Payers Type Date Identification Numbers Payment Provider Subscriber Medicare Primary Effective: Policy Number: Medicare - NGS Felicia Omer 2004 [id number] PayID: [id number] [place] [address] Medigap Part B Policy Number: [id number] BS [place] [employer] Felicia Omer PayID: [id number] [address] [address] [place] [address] Problems Date Description Provider Status Onset: 12/23/2014 [...] Comments Marital Status Legal Status: Occupation Retired [employer] E[employer]H Use Denies alcohol use Smoking Patient [...] Active Capsules 100mg Breiman, 0000 Edson Mullen [place] 3-6-9 / Active Capsules 1200mg Alonzo 0000 Paz Ugalde Tobrex 06/28/ Hx Ointment 0.3% 3.500g apply to H10.523 Sofy Keily 2014 - all lids [place], 01/03/ at O.D. 2016 bedtime Tobradex 12/23/ Hx Ointment 0.3-0.1% 3.500g apply to 373.00 Sofy Michaud 2014 all lids [place], 06/27/ at O.DJavid 2014 [...] Levothyroxine / Hx Tablets 25mcg Unknown Sodium - 2017 Cyanocobalamin / Hx Solution 1000mcg/ML Sadiq 0000 Dana Minor M.DJavid 2017 Results Description No Information Procedures Date CPT Code Description Status 11/05/2017 62927 Determination Of Refractive State Completed 11/05/2017 88711 Est Patient Comprehensive Exam Completed 11/05/2017 613 Proomega Tablets Completed 05/24/2017 51294 Est Patient Comprehensive Exam Completed 01/11/2017 18717 Est Patient Comprehensive Exam Completed 11/02/2016 26136 Est Patient Comprehensive Exam Completed 11/02/2016 613 Proomega Tablets Completed 07/10/2016 601 [place] Completed 07/10/2016 613 Proomega Tablets Completed 07/10/2016 74223 Est Patient Comprehensive Exam Completed 07/10/2016 01037 Scanning Computerized Opthalmic Diagnostic Posterior Completed Seg Retina 01/05/2016 54815 Determination Of Refractive State Completed 01/05/2016 51796 Est Patient Comprehensive Exam Completed 06/28/2015 07581 Est Patient Comprehensive Exam Completed 06/28/2015 613 Proomega Tablets Completed 01/25/2015 613 Proomega Tablets Completed 12/23/2014 99928 Determination Of Refractive State Completed 12/23/2014 51300 Est Patient Comprehensive Exam Completed 06/26/2014 73334 Est Patient Comprehensive Exam Completed 06/26/2014 613 Proomega Tablets Completed 03/11/2014 613 Proomega Tablets Completed 03/11/2014 14850 Est Patient Intermediate Exam Completed 03/11/2014 98803 Scanning Computerized Opthalmic Diagnostic Posterior Completed Seg Retina 12/24/2013 06995 Est Patient Comprehensive Exam Completed 12/24/2013 613 Proomega Tablets Completed 06/26/2013 516 Cod Liver Oil Tablets Completed 05/29/2013 01326 Visual Field Exam Extended Completed 05/29/2013 86712 Est Patient Intermediate Exam Completed 03/06/2013 516 Cod Liver Oil Tablets Completed 02/21/2013 58010 Est Patient Comprehensive Exam Completed 02/14/2013 18111 Est Patient Comprehensive Exam Completed 02/14/2013 15113 Scanning Computerized Opthalmic Diagnostic Posterior Completed Seg Retina 02/11/2013 29026 Est Patient Intermediate Exam Completed 01/09/2013 18887 Scanning Computerized Opthalmic Diagnostic Posterior Completed Seg Retina 01/09/2013 06933 Est Patient Comprehensive Exam Completed 10/28/2012 18879 Determination Of Refractive State Completed 10/28/2012 52585 Est Patient Comprehensive Exam Completed 10/24/2012 516 Cod Liver Oil Tablets Completed 06/19/2012 516 Cod Liver Oil Tablets Completed 04/29/2012 72415 Est Patient Comprehensive Exam Completed 03/15/2012 516 Cod Liver Oil Tablets Completed 02/03/2012 92924 Est Patient Intermediate Exam Completed 12/06/2011 516 Cod Liver Oil Tablets Completed 10/27/2011 65211 Scanning Computerized Opthalmic Diagnostic Posterior Completed Seg Retina 10/27/2011 93349 Est Patient Comprehensive Exam Completed 08/18/2011 516 Cod Liver Oil Tablets Completed 07/31/2011 97563 Est Patient Comprehensive Exam Completed 05/11/2011 516 Cod Liver Oil Tablets Completed 01/23/2011 516 Cod Liver Oil Tablets Completed 10/20/2010 516 Cod Liver Oil Tablets Completed 07/15/2010 16615 Est Patient Intermediate Exam Completed 06/22/2010 516 Cod Liver Oil Tablets Completed 06/22/2010 33630 Est Patient Intermediate Exam Completed 03/25/2010 516 Recheck Completed 03/09/2010 42850 Determination Of Refractive State Completed 03/09/2010 26101 Est Patient Comprehensive Exam Completed 02/15/2010 516 Cod Liver Oil Tablets Completed 11/04/2009 516 Cod Liver Oil Tablets Completed 09/08/2009 29534 Est Patient Comprehensive Exam Completed 07/16/2009 516 Cod Liver Oil Tablets Completed 04/13/2009 516 Cod Liver Oil Tablets Completed 12/29/2008 516 Cod Liver Oil Tablets Completed 09/14/2008 516 Cod Liver Oil Tablets Completed 05/11/2008 516 Cod Liver Oil Tablets Completed 02/07/2008 516 Cod Liver Oil Tablets Completed 11/06/2007 29730 Est Patient Comprehensive Exam Completed 11/06/2007 516 Cod Liver Oil Tablets Completed 07/08/2007 39013 Determination Of Refractive State Completed 07/08/2007 86851 Est Patient Comprehensive Exam Completed 05/06/2007 46480 Est Patient Comprehensive Exam Completed 04/22/2007 516 Cod Liver Oil Tablets Completed 09/17/2006 40780 Est Patient Intermediate Exam Completed 02/02/2006 70645 Est Patient Intermediate Exam Completed 12/29/2005 39252 Fundus Photography With Interpretation And Report Completed 12/29/2005 60161 Est Patient Comprehensive Exam Completed 12/29/2005 516 Cod Liver Oil Tablets Completed 12/29/2005 510 Eye Scrubs 30 Count Completed 10/06/2005 516 Cod Liver Oil Tablets Completed 06/02/2005 516 Cod Liver Oil Tablets Completed 05/01/2005 75987 Est Patient Comprehensive Exam Completed 08/25/2004 93102 Close Lacrimal Punctum, Plug Completed 06/30/2004 39995 Est Patient Comprehensive Exam Completed 06/17/2004 65846 Est Patient Comprehensive Exam Completed Encounters Type Date Location Provider CPT E/M Dx Office Visit 09/28/2014 11:45a Edson Christian MD, Kathy Bansal O.D. 55590 373.00 pc Office Visit 06/26/2013 10:30a Edson Christian MD, Sofy Be, 46763 368.2 pc O.D. Office Visit 02/09/2012 11:10a Edson Christian MD, Sofy Be, 73672 373.12 pc O.D. Office Visit 02/05/2012 11:10a Edson Christian MD, Sofy Be, 91126 373.00 pc O.D. Office Visit 07/28/2010 11:30a Edson Christian MD, Makenzie SmithJavid Jeffery, 72685 373.00 pc O.D. Office Visit 07/10/2007 1:45p Edson Christian MD, Stan Calles M.D. 91419 379.24 pc Office Visit 10/28/2004 11:15a Edson Christian MD, Edson Christian, 54181 375.15 pc M.D. Office Visit 08/02/2004 2:30p Edson Christian MD, Edson Christian, 77447 375.15 pc M.D. 373.00 Office Visit 11/02/2003 11:45a Edson Christian [place], [place] [address] 379.21 Plan of Care Future Appointment(s):05/08/2018 11:00 am - Alonzo Ugalde M.D. at Edson Christian MD, 12/20/2017 - Alonzo Ugalde M.D.H53.2 DiplopiaComments:Smoking can increase the risk of [...] next appointment, please call our office at .h25.13 Age-related nuclear cataract, bilateralComments:You have been diagnosed with cataracts. If you are happy with your vision as it is now, then we willsee you at your next scheduled appointment. If you feel like your vision is getting worse before your scheduled appointment, please call [facility] at .V88.104 Lattice degeneration of retina, left eyeComments:CALL WITH AN INCREASE IN THE FLASHES OR NEW FLOATING SPOTS IN THE VISION
--- NOTE | 2018-01-14 18:32 | RAD ---
Indication: Head injury. CT of the brain was performed without IV contrast. Comparison is made with previous exam dated August 22, 2017. Ventricular structures are midline. No midline shift is noted. The extraction spaces are unremarkable. There is no evidence of intracranial mass or hemorrhage. No other high or low density lesions are identified. Mastoid air cells and paranasal sinuses are otherwise unremarkable. IMPRESSION: No intracranial mass or hemorrhage. No changes noted since previous exam of August 22, 2017.
--- NOTE | 2018-01-14 18:39 | RAD ---
Indication: Fall, neck injury. CT of the cervical spine was obtained in the axial plane. Sagittal and coronal reconstructed images were obtained. The skull base demonstrates no evidence of fracture. Mastoid air cells are well aerated. The C1 ring is intact. The vertebral bodies appear normal in height. There is reversal of the normal lordosis. At C2-C3 and C3-C4 no disc protrusion is noted. No central foraminal stenosis is noted. At C4-C5 there may be some minimal grade 1 spondylolisthesis. No central or foraminal stenosis is noted. Degenerative disc disease at C5-C6 is noted. No fracture is noted. No central or foraminal stenosis is noted. At C6-C7 and C7-T1 no fracture is identified. No central or foraminal stenosis is noted. The lung apices are grossly unremarkable. IMPRESSION: Grade 1 spondylolisthesis of C4 on 5 due to facet hypertrophy. No central or foraminal stenosis is noted. No fracture of the cervical spine is identified.
[2018-01-14 18:42] LABS: EGFR Non-African American 53.6 (>60)
[2018-01-14 18:55] LABS: Monocytes % 7 % (0-7); Platelet Count Platelets clumped. 10^3/ul (150-450)
[2018-01-14 18:56] LABS: Hematocrit 41 % (35-47); Hemoglobin 13.9 g/dl (12.0-16.0); Mean Corpuscular HGB Conc 34 g/dl (31-36); Mean Corpuscular Hemoglobin 32 pg (27-31); Mean Corpuscular Volume 95 fL (80-97); Red Blood Count 4.31 10^6/ul (4.0-5.4); Red Cell Distribution Width 13 % (10.5-15); White Blood Count 5.8 10^3/ul (3.5-10.8)
--- NOTE | 2018-01-14 19:10 | RAD ---
Indication: Chest pain. 2 views of the chest demonstrate a single view of the chest demonstrates no mediastinal shift. Heart is of normal size and configuration. Lung isaac are clear. IMPRESSION: No active cardiopulmonary disease is noted.
--- NOTE | 2018-01-14 19:11 | RAD ---
Indication: Left hip pain. 2 views of left hip demonstrates no fracture. Pelvic ring is intact. IMPRESSION: No fracture of the left hip or pelvis is noted.
[2018-01-14 19:30] LABS: Urine Appearance Cloudy; Urine Blood Negative (Negative); Urine Color Yellow; Urine Ketones Negative (Negative); Urine Protein Negative (Negative); Urine Specific Gravity 1.008 (1.010-1.030); Urine Urobilinogen Negative (Negative)
--- NOTE | 2018-01-14 20:02 | ED ---
Rickey Kohler Angela, scribed for Vinay Prado MD on 01/14/18 at 1753 . Adult Trauma - HPI Summary HPI Summary: This pt is a 77 y/o female presenting to [facility] via EMS c/o right sided neck pain , headache, and left hip pain s/p fall today. Pt reports she fell backwards striking her head. Denies LOC. Pt notes she is ambulatory at home. Denies lacerations, blood loss, hand pain, abd pain, chest pain, SOB, fever. PMHx includes Parkinson's, right shoulder replacement. - History of Current Complaint Chief Complaint: EDHeadInjury Stated Complaint: FALL Time Seen by Provider: 01/14/18 17:32 Hx Obtained From: Patient ?: No Mechanism of Injury: Fall Loss of Consciousness: no loss of consciousness Onset/Duration: Started Minutes Ago, Traumatic, Still Present Onset of Pain: Minutes Current Severity: Moderate Pain Intensity: 5 Pain Scale Used: 0-10 Numeric Location: Head, Neck - right sided, Other - Left hip pain Aggravating Factor(s): Movement Alleviating Factor(s): Rest Associated Signs & Symptoms: Negative: SOB, Chest Pain, Abdominal Pain, Fever, Loss of Consciousness, Memory Loss, Significant Blood Loss - Additional Pertinent History Primary Care Physician: [id number] - Allergy/Home Medications Allergies/Adverse Reactions: Allergies Allergy/AdvReac Type Severity Reaction Status Date / Time ciprofloxacin Allergy Rash Verified 01/14/18 18:35 doxycycline Allergy Rash Verified 01/14/18 18:35 hydrocodone Allergy Rash Verified 01/14/18 18:35 Iodinated Contrast- Oral and Allergy Rash Verified 01/14/18 18:35 IV Dye lansoprazole Allergy Rash Verified 01/14/18 18:35 levofloxacin Allergy Rash Verified 01/14/18 18:35 loracarbef Allergy Unknown Verified 01/14/18 18:35 Reaction Details rabeprazole Allergy Pain Verified 01/14/18 18:35 rofecoxib Allergy Rash Verified 01/14/18 18:35 Sulfa (Sulfonamide Allergy Unknown Verified 01/14/18 18:35 Antibiotics) Reaction Details Home Medications: Home Medications Acetaminophen [Tylenol Extra Strength] 500 mg PO Q4H PRN 01/14/18 [History Confirmed 01/14/18] Carbidopa/Levodop 25/100 MG(*) [Sinemet 25/100 TAB(*)] 1.5 tab PO 1200,1600 11/28 [History Confirmed 01/14/18] Carbidopa/Levodop 25/100 MG(*) [Sinemet 25/100 TAB(*)] 2 tab PO 1000 01/14/18 [ History Confirmed 01/14/18] Cyanocobalamin TAB* [Vitamin B12 TAB*] 500 mcg PO DAILY 01/14/18 [History Confirmed 01/14/18] Ibuprofen TAB* [Advil TAB*] 400 mg PO Q4H PRN 01/14/18 [History Confirmed ] Vit A/Vit C/Vit E/Zinc/Copper [Preservision Areds Softgel] 1 each PO QPM [History Confirmed 01/14/18] PMH/Surg Hx/FS Hx/Imm Hx Endocrine/Hematology History: Reports: Hx Anticoagulant Therapy, Hx Thyroid Disease - hypothyroidism Denies: Hx Diabetes Cardiovascular History: Reports: Hx Hypercholesterolemia, Hx Hypertension Denies: Hx Pacemaker/ICD Respiratory History: Denies: Hx Asthma, Hx Chronic Obstructive Pulmonary Disease (COPD) GI History: Reports: Hx Irritable Bowel - Hx Chronic Diarrhea Musculoskeletal History: Reports: Hx Arthritis, Hx Back Problems, Hx Orthopedic Injury, Other Musculoskeletal History - R Shoulder Repair Denies: Hx Rheumatoid Arthritis, Hx Osteoporosis Sensory History: Reports: Hx Contacts or Glasses Denies: Hx Hearing Aid Opthamlomology History: Reports: Hx Contacts or Glasses Neurological History: Reports: Hx Headaches, Other Neuro Impairments/Disorders - Parkinson's Disease Psychiatric History: Reports: Hx Anxiety Denies: Hx Panic Disorder - Cancer History Hx Chemotherapy: No Hx Radiation Therapy: No - Surgical History Surgery Procedure, Year, and Place: rt shoulder prosthesis-2008, RT AND LT BREAST BX, HYSTERECTOMY, CHO[place], RT JOSÉ LUIS ORTHOPLASTY SHOULDER, SHOULDER MANIPULATION,ORIF RT WRIST WITH PLATING Hx Anesthesia Reactions: No Infectious Disease History: No Infectious Disease History: Denies: Traveled Outside the [place] in Last 30 Days - Family History Known Family History: Positive: Hypertension - Social History Alcohol Use: None Hx Substance Use: Yes Substance Use Type: Reports: None Hx Tobacco Use: No Smoking Status (MU): Never Smoked Tobacco Review of Systems Negative: Fever Negative: Chest Pain Negative: Shortness Of Breath Musculoskeletal: Other - left hip pain, neck pain Positive: Headache All Other Systems Reviewed And Are Negative: Yes Physical Exam - Summary Physical Exam Summary: VITAL SIGNS: Reviewed. GENERAL: Patient is an elderly and fragile female who is lying comfortable in the stretcher. Patient is not in any acute respiratory distress. HEAD AND FACE: No signs of trauma. No ecchymosis, hematomas or skull depressions. No sinus tenderness. EYES: PERRLA, EOMI x 2, No injected conjunctiva, no nystagmus. EARS: Hearing grossly intact. Ear canals and tympanic membranes are within normal limits. MOUTH: Oropharynx within normal limits. NECK: Supple, trachea is midline, no adenopathy, no JVD, no carotid bruit, no c- spine tenderness. Neck tenderness. CHEST: Symmetric, no tenderness at palpation LUNGS: Clear to auscultation bilaterally. No wheezing or crackles. CVS: Regular rate and rhythm, S1 and S2 present, no murmurs or gallops appreciated. ABDOMEN: Soft, non-tender. No signs of distention. No rebound no guarding, and no masses palpated. Bowel sounds are normal. EXTREMITIES: no cyanosis or clubbing. Left hip tenderness. NEURO: Alert and oriented x 3. No acute neurological deficits. Speech is normal and follows commands. SKIN: Dry and warm GCS: 15 Triage Information Reviewed: Yes Vital Signs On Initial Exam: Initial Vitals Temp Pulse Resp BP Pulse Ox 97.7 F 84 24 193/101 99 01/14/18 17:18 01/14/18 17:18 01/14/18 17:18 01/14/18 17:18 01/14/18 17:18 Vital Signs Reviewed: Yes Diagnostics - Vital Signs Vital Signs Temp Pulse Resp BP Pulse Ox 01/14/18 17:18 97.7 F 84 24 193/101 99 - Laboratory Lab Results: Lab Results 01/14/18 01/14/18 01/14/18 Range/Units 18:09 18:09 19:17 WBC 5.8 (3.5-10.8) 10^3/ul RBC 4.31 (4.0-5.4) 10^6/ul Hgb 13.9 (12.0-16.0) g/dl Hct 41 (35-47) % MCV 95 (80-97) fL MCH 32 H (27-31) pg MCHC 34 (31-36) g/dl RDW 13 (10.5-15) % Plt Count Platelets clumped. H (150-450) 10^3/ul MPV Not Reportable Neutrophils % 68 (38-83) % Lymphocytes % 24 L (25-47) % Monocytes % 7 (0-7) % Eosinophils % 1 (0-6) % Basophils % 0 (0-2) % Abs Neuts (Manual) 3.9 (1.5-7.7) 10^3/ul Abs Lymphs (Manual) 1.4 (1.0-4.8) 10^3/ul Abs Monocytes (Manual) 0.4 (0-0.8) 10^3/ul Absolute Eos (Manual) 0.1 (0-0.6) 10^3/ul Abs Basophils (Manual) 0 (0-0.2) 10^3/ul Normal RBC Morphology Normal (Normal) Sodium 137 L (139-145) mmol/L Potassium 4.3 (3.5-5.0) mmol/L Chloride 102 (101-111) mmol/L Carbon Dioxide 27 (22-32) mmol/L Anion Gap 8 (2-11) mmol/L BUN 19 (6-24) mg/dL Creatinine 1.00 H (0.51-0.95) mg/dL Est GFR ( Amer) 69.0 (>60) Est GFR (Non-Af Amer) 53.6 (>60) BUN/Creatinine Ratio 19.0 (8-20) Glucose 117 H (70-100) mg/dL Calcium 9.3 (8.6-10.3) mg/dL Magnesium 2.2 (1.9-2.7) mg/dL Total Bilirubin 0.80 (0.2-1.0) mg/dL AST 14 (13-39) U/L ALT 4 L (7-52) U/L Alkaline Phosphatase 70 (34-104) U/L Total Protein 6.8 (6.4-8.9) g/dL Albumin 4.0 (3.2-5.2) g/dL Globulin 2.8 (2-4) g/dL Albumin/Globulin Ratio 1.4 (1-3) Urine Color Yellow Urine Appearance Cloudy Urine pH 7.0 (5-9) Ur Specific [place] 1.008 L (1.010-1.030) Urine Protein Negative (Negative) Urine Ketones Negative (Negative) Urine Blood Negative (Negative) Urine Nitrate Negative (Negative) Urine Bilirubin Negative (Negative) Urine Urobilinogen Negative (Negative) Ur Leukocyte Esterase Trace A (Negative) Urine WBC (Auto) 1+(6-10/hpf) A (Absent) Urine RBC (Auto) Absent (Absent) Ur Squamous Epith Cells Present A (Absent) Urine Bacteria 1+ A (Absent) Urine Glucose Negative (Negative) Urine Ascorbic Acid * A (Negative) Result Diagrams: 01/14/18 18:09 01/14/18 18:09 Lab Statement: Any lab studies that have been ordered have been reviewed, and results considered in the medical decision making process. - Radiology chest XR Xray Interpretation: No Acute Changes - IMPRESSION: No active cardiopulmonary disease is noted. Dr. Prado has reviewed this radiology report. Radiology Interpretation Completed By: Radiologist Left hip XR Xray Interpretation: No Acute Changes - IMPRESSION: No fracture of the left hip or pelvis is noted. Dr. Prado has reviewed this radiology report. Radiology Interpretation Completed By: Radiologist - CT Brain CT CT Interpretation: No Acute Changes - IMPRESSION: No intracranial mass or hemorrhage. No changes noted since previous exam of August 22, 2017. Dr. Prado has reviewed this radiology report. CT Interpretation Completed By: Radiologist Cervical spine CT CT Interpretation: No Acute Changes - IMPRESSION: Grade 1 spondylolisthesis of C4 and 5 due to facet hypertrophy. No central or foraminal stenosis is noted. No fracture of the cervical spine is identified. Dr. Prado has reviewed this radiology report. CT Interpretation Completed By: Radiologist - EKG 17:57 Cardiac Rate: NL - at 83 bpm EKG Rhythm: Sinus Rhythm EKG Interpretation: No ST elevations. Q waves in III, aVF. Re-Evaluation - Re-Evaluation First Eval Re-Evaluation Time: 19:40 Comment: Pt was ambulated in the ED without difficulty. Second Eval Re-Evaluation Time: 19:50 Comment: I reviewed the lab and imaging results with the pt. Pt will be discharged home. Adult Trauma Course/Dx - Course Assessment/Plan: This patient is a 77-year-old female who presents to the emergency department with chief complaint of an accidental mechanical fall. She is complaining of a slight headache, neck pain, and left hip pain. Patient denies any shortness of breath, chest pain, palpitations, headache or dizziness. Test results without any significant abnormality except for glucose of 117. Head CT impression: No acute pathology. C-spine CT impression: Acute fracture dislocation. Hip x-rays and pelvic x-ray impression: No acute fracture dislocation. At this time I ambulated the patient and she was able to walk without any ataxia or pain. UA contaminated. Will send urine culture. Therefore the patient was discharged home with follow-up with primary care physician. - Diagnoses Provider Diagnoses: Accident due to mechanical fall without injury Discharge - Sign-Out/Discharge Documenting (check all that apply): Discharge/Admit/Transfer - Discharge - Discharge Plan Condition: Stable Disposition: HOME Patient Education Materials: Fall Prevention for Older Adults (ED) Referrals: Edson Parra MD [Primary Care Provider] - 3 Days Additional Instructions: Please follow up with your primary care provider. RETURN TO THE ED FOR ANY NEW OR WORSENING SYMPTOMS. - Billing Disposition and Condition Condition: STABLE Disposition: Home The documentation as recorded by the Rickey norton Angela accurately reflects the service I personally performed and the decisions made by me, Vinay Prado MD.
[2018-01-14 20:13] VITALS: BP 194/94
--- NOTE | 2018-01-17 09:05 | ED ---
Progress - Progress Note Progress Note: Patient's preliminary urine culture reveals 25-50,000 Proteus mirabilis. Final culture and sensitivity results pending. Re-Evaluation - Re-Evaluation First Eval Re-Evaluation Time: 19:40 Comment: Pt was ambulated in the ED without difficulty. Second Eval Re-Evaluation Time: 19:50 Comment: I reviewed the lab and imaging results with the pt. Pt will be discharged home. Course/Dx - Diagnoses Provider Diagnoses: Accident due to mechanical fall without injury Discharge - Sign-Out/Discharge Documenting (check all that apply): Post-Discharge Follow Up - Discharge Plan Condition: Stable Disposition: HOME Patient Education Materials: Fall Prevention for Older Adults (ED) Referrals: Edson Parra MD [Primary Care Provider] - 3 Days Additional Instructions: Please follow up with your primary care provider. RETURN TO THE ED FOR ANY NEW OR WORSENING SYMPTOMS. - Billing Disposition and Condition Condition: STABLE Disposition: Home
--- NOTE | 2018-01-18 17:21 | PN ---
Progress Note - Progress Note Date of Service: 01/14/18 Note: Pt. seen in the ER 01/14/18 after a fall. Urine culture obtained at that time. Final culture today is growing [id number] proteus mirabilis. On micro review pt.' s urine culture chronically contains this bacteria. I called and spoke with pt. at 1504 and discussed results. Pt. states she is not have any urinary symptoms or fever. Suspect contamination. Pt. has an apt. with her PCP next week for f.u.
== END 2018-01-14 20:12 | disposition home or self-care (01) ==
LOC: ED 17:16
DX: M54.2 Cervicalgia (principal); M25.552 Pain in left hip; R51 Headache; W19.XXXA Unspecified fall, initial encounter; M43.12 Spondylolisthesis, cervical region; G20 Parkinson's disease; M19.90 Unspecified osteoarthritis, unspecified site; Z88.5 Allergy status to narcotic agent; Z88.2 Allergy status to sulfonamides; Z88.8 Allergy status to other drugs, medicaments and biological substances; Z88.3 Allergy status to other anti-infective agents; Z91.041 Radiographic dye allergy status
CPT/HCPCS: 36415; 70450; 71045; 72125; 80053; 81003; 81015; 83735; 85025; 87077; 87086; 87186; 93005; 99283

== ENCOUNTER 2018-02-20 16:19 | Emergency (ER) | payer MEDICARE, BC ==
--- NOTE | 2018-02-20 16:40 | ED ---
Lower Extremity - HPI Summary HPI Summary: This pt is a 77 y/o female presenting to [facility] via EMS for left ankle pain s/p injury today. Pt reports she was on the toilet today and when she stood up she felt her ankle buckle. Pt notes her ankle "must have went to the side." Her was helping the pt off the toilet. Denies head strike or LOC. Pt denies any other injuries. She presents today with left lateral ankle pain and numbness. EMS placed a splint on LLE prior to arrival. PMHx includes Parkinson's disease. - History of Current Complaint Stated Complaint: ANKLE PAIN Time Seen by Provider: 02/20/18 16:32 Hx Obtained From: Patient Mechanism Of Injury: Twisted Onset of Pain: Immediate Onset/Duration: Hours Severity Currently: None Timing: Lasting Hours Location: Is Discrete @ - left ankle Associated Signs And Symptoms: Positive: Other - left ankle numbness. Negative : Fever, Weakness, Dizziness, Abdominal Pain, Knee Pain Aggravating Factor(s): Movement Alleviating Factor(s): Rest - Allergies/Home Medications Allergies/Adverse Reactions: Allergies Allergy/AdvReac Type Severity Reaction Status Date / Time ciprofloxacin Allergy Rash Verified 01/14/18 18:35 doxycycline Allergy Rash Verified 01/14/18 18:35 hydrocodone Allergy Rash Verified 01/14/18 18:35 Iodinated Contrast- Oral and Allergy Rash Verified 01/14/18 18:35 IV Dye lansoprazole Allergy Rash Verified 01/14/18 18:35 levofloxacin Allergy Rash Verified 01/14/18 18:35 loracarbef Allergy Unknown Verified 01/14/18 18:35 Reaction Details rabeprazole Allergy Pain Verified 01/14/18 18:35 rofecoxib Allergy Rash Verified 01/14/18 18:35 Sulfa (Sulfonamide Allergy Unknown Verified 01/14/18 18:35 Antibiotics) Reaction Details PMH/Surg Hx/FS Hx/Imm Hx Endocrine/Hematology History: Reports: Hx Anticoagulant Therapy, Hx Thyroid Disease - hypothyroidism Denies: Hx Diabetes Cardiovascular History: Reports: Hx Hypercholesterolemia, Hx Hypertension Denies: Hx Pacemaker/ICD Respiratory History: Denies: Hx Asthma, Hx Chronic Obstructive Pulmonary Disease (COPD) GI History: Reports: Hx Irritable Bowel - Hx Chronic Diarrhea Musculoskeletal History: Reports: Hx Arthritis, Hx Back Problems, Hx Orthopedic Injury, Other Musculoskeletal History - R Shoulder Repair Denies: Hx Rheumatoid Arthritis, Hx Osteoporosis Sensory History: Reports: Hx Contacts or Glasses Denies: Hx Hearing Aid Opthamlomology History: Reports: Hx Contacts or Glasses Neurological History: Reports: Hx Headaches, Other Neuro Impairments/Disorders - Parkinson's Disease Psychiatric History: Reports: Hx Anxiety Denies: Hx Panic Disorder - Cancer History Hx Chemotherapy: No Hx Radiation Therapy: No - Surgical History Surgery Procedure, Year, and Place: rt shoulder prosthesis-2009, RT AND LT BREAST BX, HYSTERECTOMY, CHOLEY, RT JOSÉ LUIS ORTHOPLASTY SHOULDER, SHOULDER MANIPULATION,ORIF RT WRIST WITH PLATING Hx Anesthesia Reactions: No - Family History Known Family History: Positive: Hypertension - Social History Alcohol Use: None Hx Substance Use: Yes Substance Use Type: Reports: None Hx Tobacco Use: No Smoking Status (MU): Never Smoked Tobacco Review of Systems Negative: Fever, Chills ENT: Negative Cardiovascular: Negative Respiratory: Negative Musculoskeletal: Other - left ankle pain Positive: Numbness - left ankle All Other Systems Reviewed And Are Negative: Yes Physical Exam - Summary Physical Exam Summary: Appearance: Well appearing, no pain distress Skin: warm, dry, reflects adequate perfusion Head/face: normal Eyes: EOMI, GABY ENT: normal Neck: supple, non-tender Respiratory: CTA, breath sounds present Cardiovascular: RRR, pulses symmetrical Abdomen: non-tender, soft Bowel: present Musculoskeletal: LLE: High arch same on bilateral feet. No deformity on LLE. Pulses are strong. Neuro: A&Ox3, flat affect with generalized weakness without focality. Triage Information Reviewed: Yes Vital Signs Reviewed: Yes Diagnostics - Laboratory Lab Statement: Any lab studies that have been ordered have been reviewed, and results considered in the medical decision making process. - Radiology Left ankle XR Xray Interpretation: No Acute Changes - IMPRESSION: No acute bony findings. Dr. Sherman has reviewed this report. Radiology Interpretation Completed By: Radiologist Lower Extremity Course/Dx - Course Course Of Treatment: Patient with a history of parkinsonism with minor injury to her ankle with minor mechanism. X-rays are negative. She has very little tenderness on exam. Gerardo wrap was applied. As needed Tylenol, ibuprofen. Follow-up as needed. - Diagnoses Differential Diagnosis/HQI/PQRI: Positive: Other - Fracture versus sprain/ strain. Provider Diagnoses: Ankle sprain, Parkinsonism Discharge - Sign-Out/Discharge Documenting (check all that apply): Patient Departure - Discharge - Discharge Plan Condition: Good Disposition: HOME Patient Education Materials: Ankle Sprain (ED) Referrals: Edson Parra MD [Primary Care Provider] - Additional Instructions: Ice, elevate, wrap for comfort. Tylenol as needed for discomfort. Return if worse or other concerns. - Billing Disposition and Condition Condition: GOOD Disposition: Home
--- NOTE | 2018-02-20 17:13 | RAD ---
INDICATION: Left ankle pain COMPARISON: None TECHNIQUE: Multiple views were obtained. FINDINGS: There is underlying osteopenia. No acute bony change is seen. The ankle is held in plantar flexion. There are hammertoe deformities. There is a prominent hallux valgus deformity. There is mild soft tissue edema. IMPRESSION: NO ACUTE BONY FINDINGS.
[2018-02-20 19:51] VITALS: BP 135/67
== END 2018-02-20 18:00 | disposition home or self-care (01) ==
LOC: ED 16:19
DX: S93.402A Sprain of unspecified ligament of left ankle, initial encounter (principal); X58.XXXA Exposure to other specified factors, initial encounter; Y93.89 Activity, other specified; Y92.002 Bathroom of unspecified non-institutional (private) residence as the place of occurrence of the external cause; G20 Parkinson's disease; E03.9 Hypothyroidism, unspecified; I10 Essential (primary) hypertension; E78.00 Pure hypercholesterolemia, unspecified; F41.9 Anxiety disorder, unspecified; Z88.5 Allergy status to narcotic agent; Z88.2 Allergy status to sulfonamides; Z88.8 Allergy status to other drugs, medicaments and biological substances; Z88.1 Allergy status to other antibiotic agents; Z91.041 Radiographic dye allergy status; Z79.01 Long term (current) use of anticoagulants; Z82.49 Family history of ischemic heart disease and other diseases of the circulatory system
CPT/HCPCS: 99282

== ENCOUNTER 2018-05-13 12:56 | Emergency (ER) | payer MEDICARE, BC ==
--- NOTE | 2018-05-13 13:25 | ED ---
Adult Trauma - HPI Summary HPI Summary: The pt is a 78 y/o female presenting to [facility] c/o of a mechanical fall off a commode [employer]. She landed on her R side. The fall was witnessed by skilled nursing staff. She notes neck pain, back pain, R hip pain, and R knee pain. On arrival , the pt had a neck collar in place. - History of Current Complaint Chief Complaint: EDNeckComplaint Stated Complaint: FALL Time Seen by Provider: 05/13/18 13:21 Hx Obtained From: Patient Mechanism of Injury: Fall Onset of Pain: Prior to Arrival Current Severity: Mild Pain Intensity: 5 Pain Scale Used: 0-10 Numeric Location: Neck, Other - R hip, R knee - Additional Pertinent History Primary Care Physician: [facility] - Allergy/Home Medications Allergies/Adverse Reactions: Allergies Allergy/AdvReac Type Severity Reaction Status Date / Time ciprofloxacin Allergy Rash Verified 01/14/18 18:35 doxycycline Allergy Rash Verified 01/14/18 18:35 hydrocodone Allergy Rash Verified 01/14/18 18:35 Iodinated Contrast- Oral and Allergy Rash Verified 01/14/18 18:35 IV Dye lansoprazole Allergy Rash Verified 01/14/18 18:35 levofloxacin Allergy Rash Verified 01/14/18 18:35 loracarbef Allergy Unknown Verified 01/14/18 18:35 Reaction Details rabeprazole Allergy Pain Verified 01/14/18 18:35 rofecoxib Allergy Rash Verified 01/14/18 18:35 Sulfa (Sulfonamide Allergy Unknown Verified 01/14/18 18:35 Antibiotics) Reaction Details PMH/Surg Hx/FS Hx/Imm Hx Previously Healthy: No Endocrine/Hematology History: Reports: Hx Anticoagulant Therapy, Hx Thyroid Disease - hypothyroidism Denies: Hx Diabetes Cardiovascular History: Reports: Hx Hypercholesterolemia, Hx Hypertension Denies: Hx Pacemaker/ICD Respiratory History: Denies: Hx Asthma, Hx Chronic Obstructive Pulmonary Disease (COPD) GI History: Reports: Hx Irritable Bowel - Hx Chronic Diarrhea Musculoskeletal History: Reports: Hx Arthritis, Hx Back Problems, Hx Orthopedic Injury, Other Musculoskeletal History - R Shoulder Repair Denies: Hx Rheumatoid Arthritis, Hx Osteoporosis Sensory History: Reports: Hx Contacts or Glasses Denies: Hx Hearing Aid Opthamlomology History: Reports: Hx Contacts or Glasses Neurological History: Reports: Hx Headaches, Other Neuro Impairments/Disorders - Parkinson's Disease Psychiatric History: Reports: Hx Anxiety Denies: Hx Panic Disorder - Cancer History Hx Chemotherapy: No Hx Radiation Therapy: No - Surgical History Surgery Procedure, Year, and Place: rt shoulder prosthesis-2009, RT AND LT BREAST BX, HYSTERECTOMY, CHOLEY, RT JOSÉ LUIS ORTHOPLASTY SHOULDER, SHOULDER MANIPULATION,ORIF RT WRIST WITH PLATING Hx Anesthesia Reactions: No Infectious Disease History: No Infectious Disease History: Denies: Traveled Outside the [place] in Last 30 Days - Family History Known Family History: Positive: Unknown, Hypertension - Social History Occupation: Retired Alcohol Use: None Substance Use Type: Reports: None Hx Tobacco Use: No Smoking Status (MU): Never Smoked Tobacco Review of Systems Negative: Fever Positive: Other - Positive: mecahnical fall, neck pain, back pain, R hip pain, and R knee pain All Other Systems Reviewed And Are Negative: Yes Physical Exam - Summary Physical Exam Summary: Appearance: The patient is well-nourished in no acute distress and in no acute pain. Skin: The skin is warm and dry and skin color reflects adequate perfusion. HEENT: The head is normocephalic and atraumatic. The pupils are equal and reactive. The conjunctivae are clear and without drainage. Nares are patent and without drainage. Mouth reveals moist mucous membranes and the throat is without erythema and exudate. The external ears are intact. The ear canals are patent and without drainage. The tympanic membranes are intact. Neck: The neck is supple with full range of motion and non-tender. There are no carotid bruits. There is no neck vein distension. Respiratory: Chest is non-tender. Lungs are clear to auscultation and breath sounds are symmetrical and equal. Cardiovascular: Heart is regular rate and rhythm. There is no murmur or rub auscultated. There is no peripheral edema and pulses are symmetrical and equal. Abdomen: The abdomen is soft and non-tender. There are normal bowel sounds heard in all four quadrants and there is no organomegaly palpated. Musculoskeletal: Tender in the R para-lumbar area. Extremities are non-tender with full range of motion. There is good capillary refill. There is no peripheral edema or calf tenderness elicited. Neurological: Patient is alert and oriented to person, place and time. The patient has symmetrical motor strength in all four extremities. Cranial nerves are grossly intact. Deep tendon reflexes are symmetrical and equal in all four extremities. Triage Information Reviewed: Yes Vital Signs On Initial Exam: Initial Vitals Temp Pulse Resp BP Pulse Ox 97.3 F 83 20 174/89 100 05/13/18 13:09 05/13/18 13:09 05/13/18 13:09 05/13/18 13:09 05/13/18 13:09 Vital Signs Reviewed: Yes Diagnostics - Vital Signs Vital Signs Temp Pulse Resp BP Pulse Ox 05/13/18 13:09 97.3 F 83 20 174/89 100 - Laboratory Lab Statement: Any lab studies that have been ordered have been reviewed, and results considered in the medical decision making process. - CT Cervical Spine CT CT Interpretation Completed By: Radiologist - IMPRESSION: #. No CT evidence for traumatic cervical spine injury. The ED physician reviewed this radiology report. Lumbar Spine CT CT Interpretation Completed By: Radiologist - IMPRESSION: 1. OSTEOPENIA. 2. DEGENERATIVE DISC DISEASE AND OSTEOARTHRITIS MOST PRONOUNCED AT L4-L5 AND L5- S1. 3. NO ACUTE OSSEOUS INJURY TO THE LUMBAR SPINE. The ED physician reviewed this radiology report. Adult Trauma Course/Dx - Diagnoses Provider Diagnoses: Sciatica, Cervical strain, acute Discharge - Sign-Out/Discharge Documenting (check all that apply): Patient Departure - DC - Discharge Plan Condition: Improved Disposition: HOME Patient Education Materials: Cervical Strain (ED), Sciatica (ED) Referrals: Edson Parra MD [Primary Care Provider] - 3 Days Additional Instructions: Return to ED for any new or worsening symptoms - Attestation Statements Document Initiated by Scribe: Yes Documenting Scribe: Tayla Laguna Provider For Whom Scribe is Documenting (Include Credential): Dr. Hernandez Stewart MD Scribe Attestation: Tayla Kohler , scribed for Dr. Hernandez Stewart MD on 05/14/18 at 1107.
[2018-05-13] MEDS ORDERED: Ibuprofen TAB* 600 MG PO ONE (13:43)
--- NOTE | 2018-05-13 14:26 | RAD ---
INDICATION: Neck pain post fall. COMPARISON: January 14, 2018 TECHNIQUE: Multidetector CT images foramen magnum to lung apices without contrast. Multiplanar reformation. REPORT: Normal vertebral alignment accounting for exam positioning without spondylolisthesis or subluxation at any level. 2 mm degenerative anterolisthesis at C4-C5 without change. Negative for cervical vertebral body or posterior element fracture. Negative for paravertebral hematoma. Ankylosis at the bilateral C2-C3 facet joints and LEFT unilateral C7-T1 facet joint. Multilevel predominant mild degenerative spondylosis and facet joint osteoarthritis. IMPRESSION: #. No CT evidence for traumatic cervical spine injury.
--- NOTE | 2018-05-13 14:28 | RAD ---
HISTORY: trauma COMPARISONS: None relevant TECHNIQUE: Multiple contiguous axial CT scans were obtained of the lumbar spine without intravenous contrast, with coronal and sagittal multiplanar reformations. FINDINGS: SPINAL CANAL: Evaluation of the central canal is limited on CT technique; however, there is no obvious canalicular mass or epidural hemorrhage. ALIGNMENT: There is scoliotic curvature of the spine. There is grade 1 anterolisthesis of L4 on L5. VERTEBRAL BODIES: There is diffuse osteopenia. There is no displaced fracture. The vertebral bodies are preserved in height. JOINTS: There is facet osteoarthritis most pronounced at L4-L5 and L5-S1. MUSCULATURE: Unremarkable INTERVERTEBRAL DISCS: There is mild diffuse loss of intervertebral disc height throughout the spine. AXIAL IMAGES: T12-L1: There is no osseous neural foraminal narrowing or central canal stenosis. L1-L2: There is no osseous neural foraminal narrowing or central canal stenosis. L2-L3: There is no osseous neural foraminal narrowing or central canal stenosis. L3-L4: There is no osseous neural foraminal narrowing or central canal stenosis. L4-L5: There is mild bilateral neuroforaminal narrowing. There is no osseous central canal stenosis. L5-S1: There is mild bilateral neuroforaminal narrowing. There is no osseous central canal stenosis. SOFT TISSUES: The visualized soft tissues of the abdomen are unremarkable. OTHER: There is osteoarthritis of the SI joints. IMPRESSION: 1. OSTEOPENIA. 2. DEGENERATIVE DISC DISEASE AND OSTEOARTHRITIS MOST PRONOUNCED AT L4-L5 AND L5-S1. 3. NO ACUTE OSSEOUS INJURY TO THE LUMBAR SPINE.
[2018-05-13 16:07] VITALS: BP 190/90
== END 2018-05-13 14:39 | disposition home or self-care (01) ==
LOC: ED 12:56
DX: S16.1XXA Strain of muscle, fascia and tendon at neck level, initial encounter (principal); W18.11XA Fall from or off toilet without subsequent striking against object, initial encounter; Y92.9 Unspecified place or not applicable; M51.17 Intervertebral disc disorders with radiculopathy, lumbosacral region; M85.88 Other specified disorders of bone density and structure, other site; Z88.3 Allergy status to other anti-infective agents; Z88.5 Allergy status to narcotic agent; Z91.041 Radiographic dye allergy status; Z88.2 Allergy status to sulfonamides; Z88.8 Allergy status to other drugs, medicaments and biological substances
CPT/HCPCS: 72125; 72131; 99282; A9270-GY

== ENCOUNTER 2018-08-24 14:13 | Inpatient (IN) | payer MEDICARE, BC ==
[2018-08-24] MEDS ORDERED: Albuterol/Ipratropium NEB.SOL* Albuterol 2.5 MG/Ipratropium 0.5 MG 3 ML INH ONE (14:44)
[2018-08-24 15:14] LABS: ABS Basophils 0 10^3/ul (0-0.2); ABS Eosinophils 0 10^3/ul (0-0.6); ABS Lymphocytes 0.6 10^3/ul (1.0-4.8); ABS Monocytes 0.4 10^3/ul (0-0.8); ABS Neutrophils 1.6 10^3/ul (1.5-7.7); ABS Nucleated RBC 0 10^3/ul; Eosinophil % 0.2 %; Hematocrit 38 % (35-47); Hemoglobin 12.9 g/dl (12.0-16.0); Mean Corpuscular HGB Conc 34 g/dl (31-36); Mean Corpuscular Hemoglobin 32 pg (27-31); Mean Corpuscular Volume 95 fL (80-97); Mean Platelet Volume 7.3 fL (7.4-10.4); Nucleated Red Blood Cells % 0.2; Platelet Count 113 10^3/ul (150-450); Red Blood Count 4.01 10^6/ul (4.00-5.40); Red Cell Distribution Width 14 % (10.5-15); White Blood Count 2.6 10^3/ul (3.5-10.8)
[2018-08-24 15:30] LABS: Albumin/Globulin Ratio 1.7 (1-3); BUN/Creatinine Ratio 20.8 (8-20); C Reactive Protein 56.32 mg/L (<8.01); Calcium 9.2 mg/dL (8.6-10.3); EGFR Non-African American 52.9 (>60); Globulin 2.4 g/dL (2-4); Potassium 3.4 mmol/L (3.5-5.0); Total Bilirubin 0.8 mg/dL (0.2-1.0); Total Protein 6.4 g/dL (6.4-8.9)
--- NOTE | 2018-08-24 15:52 | ED ---
Influenza-Like Illness - HPI Summary HPI Summary: Patient is a 78-year-old female with history of Parkinson's and arthritis presenting to the ED with generalized weakness, SOB and increased sleep over the course of 2-3 days. She states her who lives with her home is also sick. Denies any known fevers, sweats or chills. Endorses decreased by mouth intake due to excessive fatigue. Denies any dysphagia or odynophagia. Denies any cough or congestion. Endorses generalized weakness, however has been able to ambulate with her walker and a one assessed at home. She does have home health aides which coming periodically, however home health aide has been stating she is more than one assessed at this point and is unable to come back home at this time. Denies any abdominal pain, nausea, vomiting. She does endorse diarrhea over the course of 2 days. She continues her at home medication of carbidopa, levodopa, Sinemet and ranitidine. PCP is Dr. Parra. - History of Current Complaint Time Seen by Provider: 08/24/18 14:28 Hx Obtained From: Patient, EMS, Medical Records Onset/Duration: Gradual Onset Severity: Moderate Associated Signs & Symptoms: Fever - 100.5, F/C, Myalgia, Diarrhea - Risk Factors Influenza Risk Factors: Age 65 y/o or Older, Chronic Medical or Immunosuppresive Condition - Allergy/Home Medications Allergies/Adverse Reactions: Allergies Allergy/AdvReac Type Severity Reaction Status Date / Time ciprofloxacin Allergy Rash Verified 08/24/18 15:12 doxycycline Allergy Rash Verified 08/24/18 15:12 hydrocodone Allergy Rash Verified 08/24/18 15:12 Iodinated Contrast- Oral and Allergy Rash Verified 08/24/18 15:12 IV Dye lansoprazole Allergy Rash Verified 08/24/18 15:12 levofloxacin Allergy Rash Verified 08/24/18 15:12 loracarbef Allergy Unknown Verified 08/24/18 15:12 Reaction Details rabeprazole Allergy Pain Verified 08/24/18 15:12 rofecoxib Allergy Rash Verified 08/24/18 15:12 Sulfa (Sulfonamide Allergy Unknown Verified 08/24/18 15:12 Antibiotics) Reaction Details Home Medications: Home Medications Carbidopa/Levodop 25/100 MG(*) [Sinemet 25/100 TAB(*)] 1 tab PO 2000 08/24/18 [ History Confirmed 08/24/18] PMH/Surg Hx/FS Hx/Imm Hx Previously Healthy: No - parkinsons Endocrine/Hematology History: Reports: Hx Anticoagulant Therapy, Hx Thyroid Disease - hypothyroidism Denies: Hx Diabetes Cardiovascular History: Reports: Hx Hypercholesterolemia, Hx Hypertension Denies: Hx Pacemaker/ICD Respiratory History: Denies: Hx Asthma, Hx Chronic Obstructive Pulmonary Disease (COPD) GI History: Reports: Hx Irritable Bowel - Hx Chronic Diarrhea Musculoskeletal History: Reports: Hx Arthritis, Hx Back Problems, Hx Orthopedic Injury, Other Musculoskeletal History - R Shoulder Repair Denies: Hx Rheumatoid Arthritis, Hx Osteoporosis Sensory History: Reports: Hx Contacts or Glasses Denies: Hx Hearing Aid Opthamlomology History: Reports: Hx Contacts or Glasses Neurological History: Reports: Hx Headaches, Other Neuro Impairments/Disorders - Parkinson's Disease Psychiatric History: Reports: Hx Anxiety Denies: Hx Panic Disorder - Cancer History Hx Chemotherapy: No Hx Radiation Therapy: No - Surgical History Surgery Procedure, Year, and Place: rt shoulder prosthesis-2008, RT AND LT BREAST BX, HYSTERECTOMY, CHOLEY, RT JOSÉ LUIS ORTHOPLASTY SHOULDER, SHOULDER MANIPULATION,ORIF RT WRIST WITH PLATING Hx Anesthesia Reactions: No - Immunization History Hx Pertussis Vaccination: Yes Immunizations Up to Date: Yes Infectious Disease History: Denies: Traveled Outside the [place] in Last 30 Days - Family History Known Family History: Positive: Unknown, Hypertension - Social History Occupation: Unemployed Lives: With Family Alcohol Use: None Hx Substance Use: No Substance Use Type: Reports: None Hx Tobacco Use: No Smoking Status (MU): Never Smoked Tobacco Review of Systems Positive: Fever, Chills, Fatigue. Negative: Skin Diaphoresis Negative: Blurred Vision, Diplopia Negative: Sore Throat, Ear Ache Negative: Palpitations, Chest Pain Positive: Shortness Of Breath. Negative: Cough Positive: Diarrhea. Negative: Abdominal Pain, Vomiting, Nausea Genitourinary: Negative Positive: no symptoms reported, see HPI Positive: Myalgia Skin: Negative Positive: Weakness All Other Systems Reviewed And Are Negative: Yes Physical Exam Triage Information Reviewed: Yes Vital Signs On Initial Exam: Initial Vitals Pulse Resp Pulse Ox 94 18 100 08/24/18 14:45 08/24/18 14:45 08/24/18 14:45 Vital Signs Reviewed: Yes Appearance: Positive: Ill-Appearing Skin: Positive: Skin Color Reflects Adequate Perfusion Head/Face: Positive: Normal Head/Face Inspection Eyes: Positive: Normal, GABY, Conjunctiva Clear ENT: Positive: Pharynx normal Neck: Positive: Supple, Nontender, No Lymphadenopathy Respiratory/Lung Sounds: Positive: Wheezes Cardiovascular: Positive: RRR, Pulses are Symmetrical in both Upper and Lower Extremities Musculoskeletal: Positive: Other - weakness Neurological: Positive: Speech Normal Psychiatric: Positive: Normal, Affect/Mood Appropriate AVPU Assessment: Alert Diagnostics - Vital Signs Vital Signs Pulse Resp Pulse Ox 08/24/18 14:45 94 18 100 - Laboratory Lab Results: Lab Results 08/24/18 08/24/18 08/24/18 Range/Units 14:14 14:14 14:14 WBC 2.6 L (3.5-10.8) 10^3/ul RBC 4.01 (4.00-5.40) 10^6/ul Hgb 12.9 (12.0-16.0) g/dl Hct 38 (35-47) % MCV 95 (80-97) fL MCH 32 H (27-31) pg MCHC 34 (31-36) g/dl RDW 14 (10.5-15) % Plt Count 113 L (150-450) 10^3/ul MPV 7.3 L (7.4-10.4) fL Neut % (Auto) 61.4 % Lymph % (Auto) 23.0 % Ross % (Auto) 15.1 % Eos % (Auto) 0.2 % Baso % (Auto) 0.3 % Absolute Neuts (auto) 1.6 (1.5-7.7) 10^3/ul Absolute Lymphs (auto) 0.6 L (1.0-4.8) 10^3/ul Absolute Monos (auto) 0.4 (0-0.8) 10^3/ul Absolute Eos (auto) 0 (0-0.6) 10^3/ul Absolute Basos (auto) 0 (0-0.2) 10^3/ul Absolute Nucleated RBC 0 10^3/ul Nucleated RBC % 0.2 Sodium 135 (135-145) mmol/L Potassium 3.4 L (3.5-5.0) mmol/L Chloride 101 (101-111) mmol/L Carbon Dioxide 26 (22-32) mmol/L Anion Gap 8 (2-11) mmol/L BUN 21 (6-24) mg/dL Creatinine 1.01 H (0.51-0.95) mg/dL Est GFR ( Amer) 64.0 (>60) Est GFR (Non-Af Amer) 52.9 (>60) BUN/Creatinine Ratio 20.8 H (8-20) Glucose 130 H (70-100) mg/dL Lactic Acid 1.1 (0.5-2.0) mmol/L Calcium 9.2 (8.6-10.3) mg/dL Total Bilirubin 0.80 (0.2-1.0) mg/dL AST 18 (13-39) U/L ALT 3 L (7-52) U/L Alkaline Phosphatase 70 (34-104) U/L C-Reactive Protein 56.32 H (<8.01) mg/L B-Natriuretic Peptide (<=100) pg/mL Total Protein 6.4 (6.4-8.9) g/dL Albumin 4.0 (3.2-5.2) g/dL Globulin 2.4 (2-4) g/dL Albumin/Globulin Ratio 1.7 (1-3) 08/24/18 Range/Units 14:14 WBC (3.5-10.8) 10^3/ul RBC (4.00-5.40) 10^6/ul Hgb (12.0-16.0) g/dl Hct (35-47) % MCV (80-97) fL MCH (27-31) pg MCHC (31-36) g/dl RDW (10.5-15) % Plt Count (150-450) 10^3/ul MPV (7.4-10.4) fL Neut % (Auto) % Lymph % (Auto) % Ross % (Auto) % Eos % (Auto) % Baso % (Auto) % Absolute Neuts (auto) (1.5-7.7) 10^3/ul Absolute Lymphs (auto) (1.0-4.8) 10^3/ul Absolute Monos (auto) (0-0.8) 10^3/ul Absolute Eos (auto) (0-0.6) 10^3/ul Absolute Basos (auto) (0-0.2) 10^3/ul Absolute Nucleated RBC 10^3/ul Nucleated RBC % Sodium (135-145) mmol/L Potassium (3.5-5.0) mmol/L Chloride (101-111) mmol/L Carbon Dioxide (22-32) mmol/L Anion Gap (2-11) mmol/L BUN (6-24) mg/dL Creatinine (0.51-0.95) mg/dL Est GFR ( Amer) (>60) Est GFR (Non-Af Amer) (>60) BUN/Creatinine Ratio (8-20) Glucose (70-100) mg/dL Lactic Acid (0.5-2.0) mmol/L Calcium (8.6-10.3) mg/dL Total Bilirubin (0.2-1.0) mg/dL AST (13-39) U/L ALT (7-52) U/L Alkaline Phosphatase (34-104) U/L C-Reactive Protein (<8.01) mg/L B-Natriuretic Peptide 120 H (<=100) pg/mL Total Protein (6.4-8.9) g/dL Albumin (3.2-5.2) g/dL Globulin (2-4) g/dL Albumin/Globulin Ratio (1-3) Result Diagrams: 08/24/18 14:14 08/24/18 14:14 Lab Statement: Any lab studies that have been ordered have been reviewed, and results considered in the medical decision making process. Flu Symptom Course/Dx - Course Course Of Treatment: On arrival, patient's vital signs are noted to be at 100.2 , tachycardia at 101 and respirations 22. She is given sepsis protocol based on first VS. However, she has multiple medication allergies that were unable to be verified by patient or NOK immediately on arrival, so no abx were given on arrival. Flu swab obtained and is positive. Labs obtained show a low WBC. Likely flu causing sxs, and less likely bacterial illness. Blood cultures obtained and we are awaiting. She is normally a 1-assist at home, however has been a 2-assist requirement over the last 2-3 days. For this reason, she is currently unable to return home until she improves. Discussed case with Dr. Valdovinos who agrees to see patient and admit. Nebulizer treatment given with some improvement of SOB. - Diagnoses Differential Diagnosis/HQI/PQRI: Positive: Bronchitis, Influenza Provider Diagnoses: Influenza - Physician Notifications Discussed Care Of Patient With: Noah Valdovinos Instructed by Provider To: Admit As Inpatient Critical Care Time: 30-74 min Discharge - Sign-Out/Discharge Documenting (check all that apply): Patient Departure - Discharge Plan Condition: Fair Disposition: ADMITTED TO [facility] Referrals: Edson Parra MD [Primary Care Provider] - - Billing Disposition and Condition Condition: FAIR Disposition: Ad[facility]
[2018-08-24] MEDS ORDERED: Cefepime 2 GM in Dextrose(*) 2 GM/50 ML BAG IV ONE (15:55)
[2018-08-24] MEDS ORDERED: Artificial Tears* 15 ML BTL BOTH EYES PRN (16:38)
[2018-08-24] MEDS ORDERED: Docusate CAP* 100 MG PO PRN (16:38)
[2018-08-24] MEDS ORDERED: Azithromycin IV(*) 500 MG in NS 0.9% 250 ML* 250 ML IVPB ONE (16:53)
[2018-08-24] MEDS ORDERED: Potassium Chlor TAB* 20 MEQ TAB.ER PO STA (17:04)
[2018-08-24] MEDS: NS 0.9% 1000 ML* 1,000 ML IV SCH (19:54)
[2018-08-24] MEDS: Enoxaparin(*) 30 MG/0.3 ML SYR SUBCUT SCH (20:12)
[2018-08-24] MEDS: Carbidopa/Levodop 25/100 MG TAB(*) PO SCH (21:32)
[2018-08-24] MEDS: Oseltamivir CAP* 30 MG CAP PO SCH (21:32)
[2018-08-24] MEDS: cefTRIAXone(*) 1 GM in NS 0.9% 50 ML* 50 ML IVPB SCH (21:37)
[2018-08-24] MEDS: Nystatin CREAM* 15 GM TUBE TOPICAL SCH (21:37)
--- NOTE | 2018-08-24 22:34 | HP ---
ADMITTING HISTORY AND PHYSICAL: DATE OF ADMISSION: 08/24/18 CHIEF COMPLAINT: Progressive weakness and shortness of breath for 3 days. HISTORY OF PRESENT ILLNESS: The patient is a 78-year-old lady with a history of Parkinson's disease, osteoarthritis, and previous history of syncope who was in her usual state of health until 3 days prior to admission where she began having some weakness and shortness of breath. Unfortunately, this has progressed leading to myalgias and arthralgias leading to her presentation in the ED. She was found to be positive for influenza A screen and appeared septic on presentation with tachycardia, tachypnea as well as fevers and leukopenia of 2.6. In the ED, she received cefepime and DuoNeb. PAST MEDICAL AND SURGICAL HISTORY: 1. Parkinson's disease. 2. History of syncope and fall. 3. Osteoarthritis. 4. Dermatitis. 5. History of right distal radius fracture status post ORIF. 6. GERD. 7. Peripheral neuropathy. 8. Hypothyroidism. 9. Hyperlipidemia. 10. Status post hysterectomy. 11. Status post cholecystectomy. MEDICATIONS: Her current medications are as follows: 1. Carbidopa/levodopa. 2. Artificial tears. 3. Colace. ALLERGIES: CIPROFLOXACIN, ERYTHROMYCIN, IODINE, RABEPRAZOLE, VICODIN, DOXYCYCLINE, CONTRAST MEDIA, LANSOPRAZOLE, VIOXX, SULFA as well as LORACARBEF. FAMILY HISTORY: The patient could not recall. SOCIAL HISTORY: She lives with her in [place]. Their home is a 1 level and needs a ramp to enter. She denies any history of alcohol abuse. 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 REVIEW OF SYSTEMS: The patient mentions that she feels better after the initial treatment in the hospital but feels ill, complains of myalgias, arthralgias, and fever. She denies any recent headaches, chest pain. She does complain of shortness of breath. Denies any abdominal pain, diarrhea, constipation, pain and/or increased frequency on urination, throat pain, or new skin lesions. The rest of the 14-point review of systems other than what was described are otherwise unremarkable. PHYSICAL EXAMINATION GENERAL APPEARANCE: The patient is awake, not oriented to time, but oriented to place and person, appears ill. VITAL SIGNS: Reveals the most recent vital signs of records with blood pressure of 149/83, 102 permanent heart rate, temperature of 100.5 degrees Fahrenheit, respiratory rate of 22 per minute. HEENT: Normocephalic, atraumatic. PERRLA. Extraocular muscles intact. Negative for icterus. Moist oral mucosa. Negative throat erythema. NECK: Soft, supple with no cervical lymphadenopathy. No JVD. CHEST: Clear to auscultation anterolaterally; however, I cannot examine her posterior chest given the patient is too weak to lift her body off of her back rest, although she normally requires a 2-person assist at home. HEART: S1, S2 within normal limits. Regular rate and rhythm. No murmurs, rubs , or gallops. ABDOMEN: Soft, nondistended, nontender. Normoactive bowel sounds x4 q. EXTREMITIES: No cyanosis, clubbing with 2+ bilateral lower extremity edema. PSYCHIATRIC: No active psychosis, depression, suicidal or homicidal ideations. SKIN: Warm to touch. LABORATORY DATA/DIAGNOSTIC STUDIES: Most recent and pertinent laboratories drawn showed CBC with a WBC of 2.6, H and H were found to be normal, platelets of 113. Sodium and potassium of 135 and 3.4. BUN and creatinine of 21 and 1.01. GFR of 52.9. Lactic acid of 1.1. LFTs were found to be normal. CRP of 56.32. BNP of 120. Chest x-ray had said to be read by radiologist, but on my wet read, it appears that she has some opacities in the retrocardiac area in a region of her chest x- ray. ASSESSMENT AND PLAN: As follows: The patient is a 78-year-old lady with a history of Parkinson's disease, osteoarthritis, and peripheral neuropathy being admitted for progressive weakness and shortness of breath likely secondary to influenza with sepsis with possible secondary bacterial pneumonia. 1. Flu with sepsis. We will place the patient on renally dose Tamiflu to 30 mg p.o. b.i.d., a total of 5 days given the patient is at high risk. 2. Possible retrocardiac pneumonia. We will place the patient on Rocephin and azithromycin. At this time, we will place the patient on IV fluids and we will continue to follow cultures. For possible CT of Chest in AM to further clarify given her positioning makes it difficult to interpret mild changes in her CXR. 3. Parkinson's disease. Continue carbidopa/levodopa. 4. Question of hypothyroidism. It is unclear why she is not on any thyroid replacement therapy given her documentation of hypothyroidism. We will check TSH in a.m. 5. Hypokalemia. We will replace and continue to follow. 6. DVT prophylaxis. We will place the patient on low dose Lovenox given her advanced age. 7. Disposition for PT eval. [id number] #: [id number] MTDD
[2018-08-25] MEDS ORDERED: Albuterol 2.5 MG/3 ML NEB.SOL* (0.083%) INH PRN (01:37)
[2018-08-25 02:14] LABS: Urine Appearance Clear; Urine Bacteria Absent (Absent); Urine Bilirubin Negative (Negative); Urine Blood Negative (Negative); Urine Color Yellow; Urine Glucose Negative (Negative); Urine Ketones 1+ (Negative); Urine Nitrite Negative (Negative); Urine Protein 1+(30 mg/dL) (Negative); Urine Red Blood Cell Absent (Absent); Urine Specific Gravity 1.017 (1.010-1.030); Urine Urobilinogen Negative (Negative); Urine White Blood Cell Absent (Absent)
[2018-08-25 07:43] LABS: ABS Basophils 0 10^3/ul (0-0.2); ABS Eosinophils 0 10^3/ul (0-0.6); ABS Lymphocytes 0.8 10^3/ul (1.0-4.8); ABS Monocytes 0.5 10^3/ul (0-0.8); ABS Neutrophils 2.1 10^3/ul (1.5-7.7); ABS Nucleated RBC 0 10^3/ul; Eosinophil % 0.1 %; Hematocrit 34 % (35-47); Hemoglobin 11.3 g/dl (12.0-16.0); Lymphocyte % 23.9 %; Mean Corpuscular HGB Conc 34 g/dl (31-36); Mean Corpuscular Hemoglobin 32 pg (27-31); Mean Corpuscular Volume 95 fL (80-97); Nucleated Red Blood Cells % 0; Platelet Count 110 10^3/ul (150-450); Red Blood Count 3.54 10^6/ul (4.00-5.40); Red Cell Distribution Width 14 % (10.5-15); White Blood Count 3.4 10^3/ul (3.5-10.8)
[2018-08-25 07:52] LABS: Albumin 3.1 g/dL (3.2-5.2); Albumin/Globulin Ratio 1.1 (1-3); BUN/Creatinine Ratio 23.8 (8-20); Calcium 8.5 mg/dL (8.6-10.3); EGFR Non-African American 65.4 (>60); Globulin 2.7 g/dL (2-4); Potassium 3.6 mmol/L (3.5-5.0); Total Bilirubin 0.5 mg/dL (0.2-1.0); Total Protein 5.8 g/dL (6.4-8.9)
[2018-08-25 08:39] LABS: TSH (Thyroid Stimulating Horm) 3.4 mcIU/mL (0.34-5.60)
[2018-08-25] MEDS ORDERED: Azithromycin IV(*) 250 MG in NS 0.9% 250 ML* 250 ML IVPB SCH (09:00)
[2018-08-25] MEDS: Oseltamivir CAP* 30 MG CAP PO SCH ×2 (09:00→20:37)
[2018-08-25] MEDS: Nystatin CREAM* 15 GM TUBE TOPICAL SCH ×3 (09:01→20:38)
[2018-08-25] MEDS: NS 0.9% 1000 ML* 1,000 ML IV SCH (09:05)
[2018-08-25] MEDS: Carbidopa/Levodop 25/100 MG TAB(*) PO SCH ×4 (10:07→20:37)
[2018-08-25] MEDS: Enoxaparin(*) 30 MG/0.3 ML SYR SUBCUT SCH (16:39)
[2018-08-25] MEDS: cefTRIAXone(*) 1 GM in NS 0.9% 50 ML* 50 ML IVPB SCH (17:16)
--- NOTE | 2018-08-25 19:03 | PN ---
Subjective Date of Service: 08/25/18 Interval History: Pt seen and examined. Meds and labs reviewed. CC: N/A ROS: Denied THOMAS/dizziness, F/C, N/V, CP, SOB, increased cough, sputum production , abd pain, diarrhea, constipation, dysuria, myalgias, arthralgias, throat pain , and new skin lesions. The rest of the 14 point ROS are unremarkable. PHYSICAL EXAM: GEN APPEARANCE: Awake, not in acute distress HEENT: NC/AT, PERRLA, moist oral mucosa, (-) throat erythema NECK: Soft, supple, (-) cervical LAD, (-)JVD HEART: S1S2 WNL, RRR, No MRG CHEST: CTA, BL, GAE, No W/R/R ABD: Soft, ND/NT, NABS 4x Q EXT: No C/C/E SKIN: Warm to touch PSYCH: No active psychosis, hallucinations, depression, SI/HI Objective Active Medications: Albuterol (Ventolin 2.5 Mg/3 Ml Neb.Jannette*) 2.5 mg INH Q4H PRN PRN Reason: SOB/WHEEZING Last Admin: 08/25/18 01:57 Dose: 2.5 mg Carbidopa/Levodopa (Sinemet 25/100 Tab(*)) 1 tab PO 2000 [facility] Last Admin: 08/24/18 21:32 Dose: 1 tab Carbidopa/Levodopa (Sinemet 25/100 Tab(*)) 1.5 tab PO 1200,1600 [facility] Last Admin: 08/25/18 16:39 Dose: 1.5 tab Carbidopa/Levodopa (Sinemet 25/100 Tab(*)) 2 tab PO 0800 [facility] Last Admin: 08/25/18 10:07 Dose: 2 tab Docusate Sodium (Colace Cap*) 100 mg PO BID PRN PRN Reason: CONSTIPATION Enoxaparin Sodium (Lovenox(*)) 30 mg SUBCUT Q24H [facility] Last Admin: 08/25/18 16:39 Dose: 30 mg Sodium Chloride (Ns 0.9% 1000 Ml*) 1,000 mls @ 75 mls/hr IV PER RATE [facility] Stop: 08/26/18 06:19 Last Admin: 08/25/18 09:05 Dose: 75 mls/hr Nystatin (Nystatin Cream*) 1 applic TOPICAL TID [facility] Last Admin: 08/25/18 12:44 Dose: 1 admin Oseltamivir Phosphate (Tamiflu Cap*) 30 mg PO 0900,2100 [facility] Stop: 08/29/18 09:01 Last Admin: 08/25/18 09:00 Dose: 30 mg Polyvinyl Alcohol (Polyvinyl Alcohol 1.4% Opth*) 1 drop BOTH EYES BID PRN PRN Reason: DRY EYE Vital Signs - 8 hr 08/25/18 08/25/18 12:11 15:28 Temperature 98.7 F 98.3 F Pulse Rate 77 79 Respiratory 20 18 Rate Blood Pressure 114/99 137/86 (mmHg) O2 Sat by Pulse 96 99 Oximetry Oxygen Devices in Use Now: None Result Diagrams: 08/25/18 06:44 08/25/18 06:44 Additional Lab and Data: Lab Results 08/24/18 08/24/18 08/24/18 Range/Units 14:14 14:14 14:14 WBC 2.6 L (3.5-10.8) 10^3/ul RBC 4.01 (4.00-5.40) 10^6/ul Hgb 12.9 (12.0-16.0) g/dl Hct 38 (35-47) % MCV 95 (80-97) fL MCH 32 H (27-31) pg MCHC 34 (31-36) g/dl RDW 14 (10.5-15) % Plt Count 113 L (150-450) 10^3/ul MPV 7.3 L (7.4-10.4) fL Neut % (Auto) 61.4 % Lymph % (Auto) 23.0 % [place] % (Auto) 15.1 % Eos % (Auto) 0.2 % Baso % (Auto) 0.3 % Absolute Neuts (auto) 1.6 (1.5-7.7) 10^3/ul Absolute Lymphs (auto) 0.6 L (1.0-4.8) 10^3/ul Absolute Monos (auto) 0.4 (0-0.8) 10^3/ul Absolute Eos (auto) 0 (0-0.6) 10^3/ul Absolute Basos (auto) 0 (0-0.2) 10^3/ul Absolute Nucleated RBC 0 10^3/ul Nucleated RBC % 0.2 Sodium 135 (135-145) mmol/L Potassium 3.4 L (3.5-5.0) mmol/L Chloride 101 (101-111) mmol/L Carbon Dioxide 26 (22-32) mmol/L Anion Gap 8 (2-11) mmol/L BUN 21 (6-24) mg/dL Creatinine 1.01 H (0.51-0.95) mg/dL Est GFR ( Amer) 64.0 (>60) Est GFR (Non-Af Amer) 52.9 (>60) BUN/Creatinine Ratio 20.8 H (8-20) Glucose 130 H (70-100) mg/dL Lactic Acid 1.1 (0.5-2.0) mmol/L Calcium 9.2 (8.6-10.3) mg/dL Total Bilirubin 0.80 (0.2-1.0) mg/dL AST 18 (13-39) U/L ALT 3 L (7-52) U/L Alkaline Phosphatase 70 (34-104) U/L C-Reactive Protein 56.32 H (<8.01) mg/L B-Natriuretic Peptide (<=100) pg/mL Total Protein 6.4 (6.4-8.9) g/dL Albumin 4.0 (3.2-5.2) g/dL Globulin 2.4 (2-4) g/dL Albumin/Globulin Ratio 1.7 (1-3) 08/24/18 Range/Units 14:14 WBC (3.5-10.8) 10^3/ul RBC (4.00-5.40) 10^6/ul Hgb (12.0-16.0) g/dl Hct (35-47) % MCV (80-97) fL MCH (27-31) pg MCHC (31-36) g/dl RDW (10.5-15) % Plt Count (150-450) 10^3/ul MPV (7.4-10.4) fL Neut % (Auto) % Lymph % (Auto) % [place] % (Auto) % Eos % (Auto) % Baso % (Auto) % Absolute Neuts (auto) (1.5-7.7) 10^3/ul Absolute Lymphs (auto) (1.0-4.8) 10^3/ul Absolute Monos (auto) (0-0.8) 10^3/ul Absolute Eos (auto) (0-0.6) 10^3/ul Absolute Basos (auto) (0-0.2) 10^3/ul Absolute Nucleated RBC 10^3/ul Nucleated RBC % Sodium (135-145) mmol/L Potassium (3.5-5.0) mmol/L Chloride (101-111) mmol/L Carbon Dioxide (22-32) mmol/L Anion Gap (2-11) mmol/L BUN (6-24) mg/dL Creatinine (0.51-0.95) mg/dL Est GFR ( Amer) (>60) Est GFR (Non-Af Amer) (>60) BUN/Creatinine Ratio (8-20) Glucose (70-100) mg/dL Lactic Acid (0.5-2.0) mmol/L Calcium (8.6-10.3) mg/dL Total Bilirubin (0.2-1.0) mg/dL AST (13-39) U/L ALT (7-52) U/L Alkaline Phosphatase (34-104) U/L C-Reactive Protein (<8.01) mg/L B-Natriuretic Peptide 120 H (<=100) pg/mL Total Protein (6.4-8.9) g/dL Albumin (3.2-5.2) g/dL Globulin (2-4) g/dL Albumin/Globulin Ratio (1-3) Microbiology and Other Data: Microbiology 08/24/18 14:14 Aerobic Blood Culture - Preliminary Blood Venous No Growth Day 1 Anaerobic Blood Culture - Preliminary No Growth Day 1 08/24/18 14:14 Aerobic Blood Culture - Preliminary Blood Venous No Growth Day 1 Anaerobic Blood Culture - Preliminary No Growth Day 1 08/24/18 15:48 Influenza Types A,B Antigen - Final Nasal Specimen received for Influenza A/B Molecular testing Assess/Plan/Problems-Billing Assessment: - Patient Problems (1) Influenza Current Visit: Yes Status: Acute Code(s): J11.1 - FLU DUE TO UNIDENTIFIED INFLUENZA VIRUS W OTH RESP MANIFEST SNOMED Code(s): 6105722 Comment: #Flu w/sepsis: -Sepsis improved -Improving leukopenia -Continue Tamiflu day #1.5 -Ordered CT of chest given poor positioning that makes it hard to interpret CXR -Since no evidence of consolidation, will D/C Rocephin and Azithromycin at this time -Blood Cx (-) x 1 day (2) Parkinson disease Current Visit: No Status: Acute Priority: High Onset Date: 10/26/15 Code (s): G20 - PARKINSON'S DISEASE SNOMED Code(s): 71082171 Comment: -Continue Carbidopa/Levodopa (3) DVT prophylaxis Current Visit: No Status: Acute Code(s): NTJ7760 - SNOMED Code(s): 983080988 Comment: -Continue Enoxaparin SQ, low dose Status and Disposition: -Im unclear why there is documentation that she might be hypothyroid in the past given her TSH is WNL and not on thyroid replacement therapy -Appreciate initial PT input and will await for their re-eval -For possible D/C in 1-2 days
[2018-08-26 05:06] LABS: Urine Appearance Clear; Urine Bacteria Absent (Absent); Urine Bilirubin Negative (Negative); Urine Blood 2+ (Negative); Urine Color Straw; Urine Glucose Negative (Negative); Urine Ketones Negative (Negative); Urine Nitrite Negative (Negative); Urine Protein Negative (Negative); Urine Red Blood Cell 2+(6-10/hpf) (Absent); Urine Specific Gravity 1.005 (1.010-1.030); Urine Urobilinogen Negative (Negative); Urine White Blood Cell 1+(6-10/hpf) (Absent)
[2018-08-26 06:49] LABS: ABS Basophils 0 10^3/ul (0-0.2); ABS Eosinophils 0 10^3/ul (0-0.6); ABS Monocytes 0.4 10^3/ul (0-0.8); ABS Neutrophils 1.6 10^3/ul (1.5-7.7); ABS Nucleated RBC 0 10^3/ul; Eosinophil % 1.3 %; Hematocrit 34 % (35-47); Hemoglobin 11.6 g/dl (12.0-16.0); Lymphocyte % 32.6 %; Mean Corpuscular HGB Conc 34 g/dl (31-36); Mean Corpuscular Hemoglobin 32 pg (27-31); Mean Corpuscular Volume 94 fL (80-97); Mean Platelet Volume 7.4 fL (7.4-10.4); Nucleated Red Blood Cells % 0; Platelet Count 120 10^3/ul (150-450); Red Blood Count 3.65 10^6/ul (4.00-5.40); Red Cell Distribution Width 14 % (10.5-15); White Blood Count 3.1 10^3/ul (3.5-10.8)
[2018-08-26 07:03] LABS: Albumin 3.2 g/dL (3.2-5.2); Albumin/Globulin Ratio 1.2 (1-3); BUN/Creatinine Ratio 18.6 (8-20); Calcium 8.6 mg/dL (8.6-10.3); EGFR Non-African American 63.7 (>60); Globulin 2.6 g/dL (2-4); Phosphorus 2.5 mg/dL (2.5-5.0); Potassium 3.6 mmol/L (3.5-5.0); Total Bilirubin 0.5 mg/dL (0.2-1.0); Total Protein 5.8 g/dL (6.4-8.9)
[2018-08-26] MEDS: Carbidopa/Levodop 25/100 MG TAB(*) PO SCH ×5 (08:04→22:05)
[2018-08-26] MEDS: Oseltamivir CAP* 30 MG CAP PO SCH ×3 (08:04→22:05)
[2018-08-26] MEDS: Nystatin CREAM* 15 GM TUBE TOPICAL SCH ×4 (08:04→21:07)
[2018-08-26] MEDS: Enoxaparin(*) 30 MG/0.3 ML SYR SUBCUT SCH ×2 (16:23→16:28)
--- NOTE | 2018-08-26 18:00 | PN ---
Subjective Date of Service: 08/26/18 Interval History: Pt seen and examined. Meds and labs reviewed. CC: N/A ROS: Denied THOMAS/dizziness, F/C, N/V, CP, SOB, increased cough, sputum production , abd pain, diarrhea, constipation, dysuria, myalgias, arthralgias, throat pain , and new skin lesions. The rest of the 14 point ROS are unremarkable. PHYSICAL EXAM: GEN APPEARANCE: Awake, not in acute distress HEENT: NC/AT, PERRLA, moist oral mucosa, (-) throat erythema NECK: Soft, supple, (-) cervical LAD, (-)JVD HEART: S1S2 WNL, RRR, No MRG CHEST: CTA, BL, GAE, No W/R/R ABD: Soft, ND/NT, NABS 4x Q EXT: No C/C/E SKIN: Warm to touch PSYCH: No active psychosis, hallucinations, depression, SI/HI Objective Active Medications: Albuterol (Ventolin 2.5 Mg/3 Ml Neb.Jannette*) 2.5 mg INH Q4H PRN PRN Reason: SOB/WHEEZING Last Admin: 08/25/18 01:57 Dose: 2.5 mg Carbidopa/Levodopa (Sinemet 25/100 Tab(*)) 1 tab PO 2000 [facility] Last Admin: 08/25/18 20:37 Dose: 1 tab Carbidopa/Levodopa (Sinemet 25/100 Tab(*)) 1.5 tab PO 1200,1600 [facility] Last Admin: 08/26/18 16:23 Dose: 1.5 tab Carbidopa/Levodopa (Sinemet 25/100 Tab(*)) 2 tab PO 0800 [facility] Last Admin: 08/26/18 08:04 Dose: 2 tab Docusate Sodium (Colace Cap*) 100 mg PO BID PRN PRN Reason: CONSTIPATION Enoxaparin Sodium (Lovenox(*)) 30 mg SUBCUT Q24H [facility] Last Admin: 08/26/18 16:28 Dose: Not Given Nitroglycerin (Nitroglycerin 2.5 Mg Patch*) 1 patch TRANSDERM BEDTIME@2000 [facility] Nystatin (Nystatin Cream*) 1 applic TOPICAL TID [facility] Last Admin: 08/26/18 16:29 Dose: Not Given Oseltamivir Phosphate (Tamiflu Cap*) 30 mg PO 0900,2100 [facility] Stop: 08/29/18 09:01 Last Admin: 08/26/18 08:04 Dose: 30 mg Pharmacy Profile Note (Nitro Patch/Oint Remove*) 1 note PATCH OFF DAILY [facility] Polyvinyl Alcohol (Polyvinyl Alcohol 1.4% Opth*) 1 drop BOTH EYES BID PRN PRN Reason: DRY EYE Vital Signs - 8 hr 08/26/18 11:37 Temperature 97.3 F Pulse Rate 78 Respiratory 16 Rate Blood Pressure 152/74 (mmHg) O2 Sat by Pulse 99 Oximetry Oxygen Devices in Use Now: None Result Diagrams: 08/26/18 06:34 08/26/18 06:34 Additional Lab and Data: Lab Results 08/24/18 08/24/18 08/24/18 Range/Units 14:14 14:14 14:14 WBC 2.6 L (3.5-10.8) 10^3/ul RBC 4.01 (4.00-5.40) 10^6/ul Hgb 12.9 (12.0-16.0) g/dl Hct 38 (35-47) % MCV 95 (80-97) fL MCH 32 H (27-31) pg MCHC 34 (31-36) g/dl RDW 14 (10.5-15) % Plt Count 113 L (150-450) 10^3/ul MPV 7.3 L (7.4-10.4) fL Neut % (Auto) 61.4 % Lymph % (Auto) 23.0 % [place] % (Auto) 15.1 % Eos % (Auto) 0.2 % Baso % (Auto) 0.3 % Absolute Neuts (auto) 1.6 (1.5-7.7) 10^3/ul Absolute Lymphs (auto) 0.6 L (1.0-4.8) 10^3/ul Absolute Monos (auto) 0.4 (0-0.8) 10^3/ul Absolute Eos (auto) 0 (0-0.6) 10^3/ul Absolute Basos (auto) 0 (0-0.2) 10^3/ul Absolute Nucleated RBC 0 10^3/ul Nucleated RBC % 0.2 Sodium 135 (135-145) mmol/L Potassium 3.4 L (3.5-5.0) mmol/L Chloride 101 (101-111) mmol/L Carbon Dioxide 26 (22-32) mmol/L Anion Gap 8 (2-11) mmol/L BUN 21 (6-24) mg/dL Creatinine 1.01 H (0.51-0.95) mg/dL Est GFR ( Amer) 64.0 (>60) Est GFR (Non-Af Amer) 52.9 (>60) BUN/Creatinine Ratio 20.8 H (8-20) Glucose 130 H (70-100) mg/dL Lactic Acid 1.1 (0.5-2.0) mmol/L Calcium 9.2 (8.6-10.3) mg/dL Total Bilirubin 0.80 (0.2-1.0) mg/dL AST 18 (13-39) U/L ALT 3 L (7-52) U/L Alkaline Phosphatase 70 (34-104) U/L C-Reactive Protein 56.32 H (<8.01) mg/L B-Natriuretic Peptide (<=100) pg/mL Total Protein 6.4 (6.4-8.9) g/dL Albumin 4.0 (3.2-5.2) g/dL Globulin 2.4 (2-4) g/dL Albumin/Globulin Ratio 1.7 (1-3) 08/24/18 Range/Units 14:14 WBC (3.5-10.8) 10^3/ul RBC (4.00-5.40) 10^6/ul Hgb (12.0-16.0) g/dl Hct (35-47) % MCV (80-97) fL MCH (27-31) pg MCHC (31-36) g/dl RDW (10.5-15) % Plt Count (150-450) 10^3/ul MPV (7.4-10.4) fL Neut % (Auto) % Lymph % (Auto) % [place] % (Auto) % Eos % (Auto) % Baso % (Auto) % Absolute Neuts (auto) (1.5-7.7) 10^3/ul Absolute Lymphs (auto) (1.0-4.8) 10^3/ul Absolute Monos (auto) (0-0.8) 10^3/ul Absolute Eos (auto) (0-0.6) 10^3/ul Absolute Basos (auto) (0-0.2) 10^3/ul Absolute Nucleated RBC 10^3/ul Nucleated RBC % Sodium (135-145) mmol/L Potassium (3.5-5.0) mmol/L Chloride (101-111) mmol/L Carbon Dioxide (22-32) mmol/L Anion Gap (2-11) mmol/L BUN (6-24) mg/dL Creatinine (0.51-0.95) mg/dL Est GFR ( Amer) (>60) Est GFR (Non-Af Amer) (>60) BUN/Creatinine Ratio (8-20) Glucose (70-100) mg/dL Lactic Acid (0.5-2.0) mmol/L Calcium (8.6-10.3) mg/dL Total Bilirubin (0.2-1.0) mg/dL AST (13-39) U/L ALT (7-52) U/L Alkaline Phosphatase (34-104) U/L C-Reactive Protein (<8.01) mg/L B-Natriuretic Peptide 120 H (<=100) pg/mL Total Protein (6.4-8.9) g/dL Albumin (3.2-5.2) g/dL Globulin (2-4) g/dL Albumin/Globulin Ratio (1-3) Microbiology and Other Data: Microbiology 08/24/18 14:14 Aerobic Blood Culture - Preliminary Blood Venous No Growth Day 1 Anaerobic Blood Culture - Preliminary No Growth Day 1 08/24/18 14:14 Aerobic Blood Culture - Preliminary Blood Venous No Growth Day 1 Anaerobic Blood Culture - Preliminary No Growth Day 1 08/24/18 15:48 Influenza Types A,B Antigen - Final Nasal Specimen received for Influenza A/B Molecular testing Assess/Plan/Problems-Billing Assessment: - Patient Problems (1) Influenza Current Visit: Yes Status: Acute Code(s): J11.1 - FLU DUE TO UNIDENTIFIED INFLUENZA VIRUS W OTH RESP MANIFEST SNOMED Code(s): 1543350 Comment: #Flu w/sepsis: -Sepsis resolved -Improving leukopenia -Continue Tamiflu day #2/5 -Blood Cx (-) x 2 day (2) HTN (hypertension) Current Visit: Yes Status: Acute Code(s): I10 - ESSENTIAL (PRIMARY) HYPERTENSION SNOMED Code(s): 96049320 Comment: -Uncontrolled -Will place on NTG patch qHS and remove in AM given pt likely at risk for falls -Refuses to have orthostatic VS taken (3) Parkinson disease Current Visit: No Status: Acute Priority: High Onset Date: 10/26/15 Code (s): G20 - PARKINSON'S DISEASE SNOMED Code(s): 37450608 Comment: -Continue Carbidopa/Levodopa (4) DVT prophylaxis Current Visit: No Status: Acute Code(s): EKZ5923 - SNOMED Code(s): 929914149 Comment: -Continue Enoxaparin SQ, low dose Status and Disposition: -Im unclear why there is documentation that she might be hypothyroid in the past given her TSH is WNL and not on thyroid replacement therapy -Appreciate initial PT input and will await for their re-eval; thought not appropriate for acute rehab since she wont be able to participate for 3 hrs -For possible D/C in AM
[2018-08-26] MEDS ORDERED: Nitroglycerin 0.1 mg/Hr PATCH* (2.5 MG) TRANSDERM SCH (20:00)
[2018-08-27] MEDS ORDERED: Nitro Patch/OINT Remove PATCH OFF SCH (09:00)
[2018-08-27] MEDS: Carbidopa/Levodop 25/100 MG TAB(*) PO SCH ×2 (09:51→13:12)
[2018-08-27] MEDS: Nystatin CREAM* 15 GM TUBE TOPICAL SCH ×2 (09:58→13:31)
[2018-08-27 12:16] VITALS: BP 156/57
[2018-08-27] MEDS: Oseltamivir CAP* 30 MG CAP PO SCH (13:13)
--- NOTE | 2018-08-27 14:36 | PN ---
Subjective Date of Service: 08/27/18 Interval History: Patient seen today. In chair. PT recommended PT ongoing for strengthening. I did advise STR but both patient and her wish to take her home with home PT and VNS. Otherwise, no acute issue. no distress Family History: Unchanged from Admission Social History: Unchanged from Admission Objective Active Medications: Albuterol (Ventolin 2.5 Mg/3 Ml Neb.Jannette*) 2.5 mg INH Q4H PRN PRN Reason: SOB/WHEEZING Last Admin: 08/25/18 01:57 Dose: 2.5 mg Carbidopa/Levodopa (Sinemet 25/100 Tab(*)) 1 tab PO 1999 COUNT INCLUDES THE [facility] Last Admin: 08/26/18 22:05 Dose: 1 tab Carbidopa/Levodopa (Sinemet 25/100 Tab(*)) 1.5 tab PO 1200,1600 COUNT INCLUDES THE [facility] Last Admin: 08/27/18 13:12 Dose: 1.5 tab Carbidopa/Levodopa (Sinemet 25/100 Tab(*)) 2 tab PO 0800 COUNT INCLUDES THE [facility] Last Admin: 08/27/18 09:51 Dose: 2 tab Docusate Sodium (Colace Cap*) 100 mg PO BID PRN PRN Reason: CONSTIPATION Enoxaparin Sodium (Lovenox(*)) 30 mg SUBCUT Q24H COUNT INCLUDES THE [facility] Last Admin: 08/26/18 16:28 Dose: Not Given Nitroglycerin (Nitroglycerin 2.5 Mg Patch*) 1 patch TRANSDERM BEDTIME@1999 COUNT INCLUDES THE [facility] Last Admin: 08/26/18 20:57 Dose: 1 patch Nystatin (Nystatin Cream*) 1 applic TOPICAL TID COUNT INCLUDES THE [facility] Last Admin: 08/27/18 13:31 Dose: Not Given Oseltamivir Phosphate (Tamiflu Cap*) 30 mg PO 0900,2100 COUNT INCLUDES THE [facility] Stop: 08/29/18 09:01 Last Admin: 08/27/18 13:13 Dose: 30 mg Pharmacy Profile Note (Nitro Patch/Oint Remove*) 1 note PATCH OFF DAILY COUNT INCLUDES THE [facility] Last Admin: 08/27/18 09:56 Dose: 1 patch Polyvinyl Alcohol (Polyvinyl Alcohol 1.4% Opth*) 1 drop BOTH EYES BID PRN PRN Reason: DRY EYE Vital Signs - 8 hr 08/27/18 08/27/18 08/27/18 07:16 08:00 11:27 Temperature 98.3 F 98.1 F Pulse Rate 85 80 Respiratory 16 16 20 Rate Blood Pressure 162/72 156/57 (mmHg) O2 Sat by Pulse 98 99 Oximetry Oxygen Devices in Use Now: None Appearance: Awakew, Alert. no distress Eyes: No Scleral Icterus, - Ears/Nose/Mouth/Throat: NL Teeth, Lips, Gums, Mucous Membranes Moist Neck: NL Appearance and Movements; NL JVP, Trachea Midline Respiratory: Symmetrical Chest Expansion and Respiratory Effort, Clear to Auscultation Cardiovascular: NL Sounds; No Murmurs; No JVD, RRR, No Edema Abdominal: NL Sounds; No Tenderness; No Distention Neurological: - - right upper extremety tremors. parkinsonsim facial features Result Diagrams: 08/26/18 06:34 08/26/18 06:34 Additional Lab and Data: Lab Results 08/24/18 08/24/18 08/24/18 Range/Units 14:14 14:14 14:14 WBC 2.6 L (3.5-10.8) 10^3/ul RBC 4.01 (4.00-5.40) 10^6/ul Hgb 12.9 (12.0-16.0) g/dl Hct 38 (35-47) % MCV 95 (80-97) fL MCH 32 H (27-31) pg MCHC 34 (31-36) g/dl RDW 14 (10.5-15) % Plt Count 113 L (150-450) 10^3/ul MPV 7.3 L (7.4-10.4) fL Neut % (Auto) 61.4 % Lymph % (Auto) 23.0 % [place] % (Auto) 15.1 % Eos % (Auto) 0.2 % Baso % (Auto) 0.3 % Absolute Neuts (auto) 1.6 (1.5-7.7) 10^3/ul Absolute Lymphs (auto) 0.6 L (1.0-4.8) 10^3/ul Absolute Monos (auto) 0.4 (0-0.8) 10^3/ul Absolute Eos (auto) 0 (0-0.6) 10^3/ul Absolute Basos (auto) 0 (0-0.2) 10^3/ul Absolute Nucleated RBC 0 10^3/ul Nucleated RBC % 0.2 Sodium 135 (135-145) mmol/L Potassium 3.4 L (3.5-5.0) mmol/L Chloride 101 (101-111) mmol/L Carbon Dioxide 26 (22-32) mmol/L Anion Gap 8 (2-11) mmol/L BUN 21 (6-24) mg/dL Creatinine 1.01 H (0.51-0.95) mg/dL Est GFR ( Amer) 64.0 (>60) Est GFR (Non-Af Amer) 52.9 (>60) BUN/Creatinine Ratio 20.8 H (8-20) Glucose 130 H (70-100) mg/dL Lactic Acid 1.1 (0.5-2.0) mmol/L Calcium 9.2 (8.6-10.3) mg/dL Total Bilirubin 0.80 (0.2-1.0) mg/dL AST 18 (13-39) U/L ALT 3 L (7-52) U/L Alkaline Phosphatase 70 (34-104) U/L C-Reactive Protein 56.32 H (<8.01) mg/L B-Natriuretic Peptide (<=100) pg/mL Total Protein 6.4 (6.4-8.9) g/dL Albumin 4.0 (3.2-5.2) g/dL Globulin 2.4 (2-4) g/dL Albumin/Globulin Ratio 1.7 (1-3) 08/24/18 Range/Units 14:14 WBC (3.5-10.8) 10^3/ul RBC (4.00-5.40) 10^6/ul Hgb (12.0-16.0) g/dl Hct (35-47) % MCV (80-97) fL MCH (27-31) pg MCHC (31-36) g/dl RDW (10.5-15) % Plt Count (150-450) 10^3/ul MPV (7.4-10.4) fL Neut % (Auto) % Lymph % (Auto) % [place] % (Auto) % Eos % (Auto) % Baso % (Auto) % Absolute Neuts (auto) (1.5-7.7) 10^3/ul Absolute Lymphs (auto) (1.0-4.8) 10^3/ul Absolute Monos (auto) (0-0.8) 10^3/ul Absolute Eos (auto) (0-0.6) 10^3/ul Absolute Basos (auto) (0-0.2) 10^3/ul Absolute Nucleated RBC 10^3/ul Nucleated RBC % Sodium (135-145) mmol/L Potassium (3.5-5.0) mmol/L Chloride (101-111) mmol/L Carbon Dioxide (22-32) mmol/L Anion Gap (2-11) mmol/L BUN (6-24) mg/dL Creatinine (0.51-0.95) mg/dL Est GFR ( Amer) (>60) Est GFR (Non-Af Amer) (>60) BUN/Creatinine Ratio (8-20) Glucose (70-100) mg/dL Lactic Acid (0.5-2.0) mmol/L Calcium (8.6-10.3) mg/dL Total Bilirubin (0.2-1.0) mg/dL AST (13-39) U/L ALT (7-52) U/L Alkaline Phosphatase (34-104) U/L C-Reactive Protein (<8.01) mg/L B-Natriuretic Peptide 120 H (<=100) pg/mL Total Protein (6.4-8.9) g/dL Albumin (3.2-5.2) g/dL Globulin (2-4) g/dL Albumin/Globulin Ratio (1-3) Microbiology and Other Data: Microbiology 08/24/18 14:14 Aerobic Blood Culture - Preliminary Blood Venous No Growth Day 1 Anaerobic Blood Culture - Preliminary No Growth Day 1 08/24/18 14:14 Aerobic Blood Culture - Preliminary Blood Venous No Growth Day 1 Anaerobic Blood Culture - Preliminary No Growth Day 1 08/24/18 15:48 Influenza Types A,B Antigen - Final Nasal Specimen received for Influenza A/B Molecular testing Assess/Plan/Problems-Billing Assessment: 78 year old female admitted for weakness secondary to viral A pneumoanie - Patient Problems (1) Influenza Current Visit: Yes Status: Acute Code(s): J11.1 - FLU DUE TO UNIDENTIFIED INFLUENZA VIRUS W OTH RESP MANIFEST SNOMED Code(s): 7757766 Comment: -Sepsis resolved -Improving leukopenia -Continue Tamiflu day #3/5 -Blood Cx (-) x 2 day (2) HTN (hypertension) Current Visit: Yes Status: Acute Code(s): I10 - ESSENTIAL (PRIMARY) HYPERTENSION SNOMED Code(s): 04905483 Comment: - 140/160's. Will defer to PCP for outpatient treatment. Will allow permissive hypertension given her age and weakness. (3) Arthralgia Current Visit: No Status: Acute Code(s): M25.50 - PAIN IN UNSPECIFIED JOINT SNOMED Code(s): 39496732 Comment: APAP and ibuprofen PRN. (4) Parkinson disease Current Visit: No Status: Acute Priority: High Onset Date: 10/26/15 Code (s): G20 - PARKINSON'S DISEASE SNOMED Code(s): 14366954 Comment: -Continue Carbidopa/Levodopa Status and Disposition: -Im unclear why there is documentation that she might be hypothyroid in the past given her TSH is WNL and not on thyroid replacement therapy -Appreciate initial PT input and will await for their re-eval; thought not appropriate for acute rehab since she wont be able to participate for 3 hrs -For possible D/C in AM
--- NOTE | 2018-08-27 23:46 | DS ---
CC: Dr. Edson Parra.* DISCHARGE SUMMARY: DATE OF ADMISSION: 08/24/18 DATE OF DISCHARGE: 08/27/18 PRIMARY CARE PHYSICIAN: Dr. Edson Parra. FINAL DISCHARGE DIAGNOSES: 1. Influenza A viral syndrome. 2. Parkinsonism exacerbation secondary to the influenza A viral. 3. Arthralgia. 4. Generalized weakness. HOSPITAL COURSE: The patient presented on 08/24/18 to [facility] for generalized weakness and shortness of breath for 3 days, progressively got worse, difficulty ambulation with tachycardia and tachypnea and leukopenia of 2.6. Her evaluation was positive for influenza A with negative chest x-ray. She was admitted, started on Tamiflu 30 mg b.i.d. and was treated initially with IV antibiotic and maintained her on her parkinsonism medication. She underwent chest CT on 08/25/18 given her constellation of symptoms which did not show any evidence for pneumonia. Hence, her antibiotic was discontinued. The patient was seen and evaluated by me today. She is sitting near the bed on the chair, doing well. Denies any complaint of distress, taking p.o. well. She did require some assistance with physical therapy, it was recommended for short- term placement. However, the patient and declined. He would rather take her home with home physical therapy and he hired a private aide. Therefore , the patient was seen and evaluated and deemed stable for discharge. DISCHARGE MEDICATIONS: Continue: 1. Artificial tears twice a day. 2. Sinemet 25/100 two tabs at 8 in the morning, 1.5 tab at noon and at 4 p.m. and one tab at 8 p.m. 3. Colace 100 mg b.i.d. 4. Vitamin B12 of 500 mcg daily. A new prescription for Tamiflu 30 mg b.i.d. for 3 more days to complete 5-day course. DISCHARGE INSTRUCTIONS: 1. Physical therapy at home, evaluate and treat. 2. Visiting nurse service. 3. Take all medications as prescribed. Unfortunately, the patient and her declined referral to short-term rehab. 4. Make an appointment to follow up with her primary in 1 to 2 weeks. [id number]/[facility] #: [id number] [facility]
== END 2018-08-27 15:45 | disposition home health service (06) | DRG 872 ==
LOC: ED 14:13 → MERGE 14:13 → MEDTELE 16:36
PROVIDERS: ADMIT Student in an Organized Health Care Education/Training Program; ATTEND Internal Medicine
DX: A41.9 Sepsis, unspecified organism (principal); G20 Parkinson's disease; M19.90 Unspecified osteoarthritis, unspecified site; J10.1 Influenza due to other identified influenza virus with other respiratory manifestations; K21.9 Gastro-esophageal reflux disease without esophagitis; G62.9 Polyneuropathy, unspecified; E03.9 Hypothyroidism, unspecified; E78.5 Hyperlipidemia, unspecified; E87.6 Hypokalemia; Z79.899 Other long term (current) drug therapy; Z88.5 Allergy status to narcotic agent; Z88.2 Allergy status to sulfonamides; Z88.8 Allergy status to other drugs, medicaments and biological substances; Z88.1 Allergy status to other antibiotic agents; Z91.041 Radiographic dye allergy status
CPT/HCPCS: 36415; 71046; 71250; 80053; 81003; 81015; 83605; 83735; 83880; 84100; 84443; 85025; 86140; 87040; 87086; 93005; 99284; A9270-GY; G8978-GP-CK; G8979-GP-CI; G8987-GO-CN; G8988-GO-CM; J0456; J0696; J1650

== ENCOUNTER → 2018-12-02 11:52 | Emergency (ER) | payer MEDICARE, BC ==
[~2018-12-02 11:52] MED LIST: traMADol TAB* 50 MG PO ONE
[2018-12-02 16:25] VITALS: BP 194/81
[2018-12-02 17:16] LABS: Urine Appearance Clear; Urine Bilirubin Negative (Negative); Urine Blood Negative (Negative); Urine Color Straw; Urine Glucose Negative (Negative); Urine Ketones Negative (Negative); Urine Nitrite Negative (Negative); Urine Protein Negative (Negative); Urine Specific Gravity 1.008 (1.010-1.030); Urine Urobilinogen Negative (Negative)
[2018-12-02 17:39] LABS: Activated Partial Thrombo Time 29.8 seconds (26.0-36.3); INR 0.96 (0.82-1.09)
[2018-12-02 17:43] LABS: Albumin 4.2 g/dL (3.2-5.2); Albumin/Globulin Ratio 1.4 (1-3); BUN/Creatinine Ratio 25.8 (8-20); C Reactive Protein 1.29 mg/L (<8.01); Calcium 9.7 mg/dL (8.6-10.3); EGFR Non-African American 55.4 (>60); Potassium 3.9 mmol/L (3.5-5.0); Total Bilirubin 0.8 mg/dL (0.2-1.0); Total Protein 7.2 g/dL (6.4-8.9)
[2018-12-02 17:44] LABS: Troponin I 0.01 ng/mL (<0.04)
--- NOTE | 2018-12-03 05:13 | ED ---
Adult Trauma - HPI Summary HPI Summary: Patient's 78-year-old female presenting to the ED with low back pain and hip pain. She states she lost her balance and 8 helps her to the floor. She did not hit her head or have any positive LOC. She was able to stand pivot per EMS. She uses a walker, baseline as well as a wheelchair, patient has Parkinson 's. She states she has 24/7 care at home with home health aides and lives with her . She endorses pain 7/10 to the back and 5/10 to the right hip. She denies any weakness. Denies any numbness or tingling in the bilateral lower extremities. Patient endorses having to have assists with sitting to standing and needs assistance with using the restroom. She has this at home. She denies any other concerns at this time. She states she is S/P right shoulder replacement and states she has no discomfort in this shoulder or arm. - History of Current Complaint Chief Complaint: EDBackInjuryPain Stated Complaint: FALL/LOWER BACK PAIN PER EMS Time Seen by Provider: 12/02/18 12:05 Hx Obtained From: Patient ?: No Ambulatory at the Scene: No Loss of Consciousness: no loss of consciousness Onset Severity: Mild Current Severity: Mild Pain Intensity: 9 Pain Scale Used: 0-10 Numeric Location: Other - Back and right hip Character: Aching Aggravating Factor(s): Nothing Alleviating Factor(s): Nothing Associated Signs & Symptoms: Positive: Negative - Additional Pertinent History Primary Care Physician: MULU - Allergy/Home Medications Allergies/Adverse Reactions: Allergies Allergy/AdvReac Type Severity Reaction Status Date / Time ciprofloxacin Allergy Rash Verified 12/02/18 12:03 doxycycline Allergy Rash Verified 12/02/18 12:03 hydrocodone Allergy Rash Verified 12/02/18 12:03 Iodinated Contrast- Oral and Allergy Rash Verified 12/02/18 12:03 IV Dye lansoprazole Allergy Rash Verified 12/02/18 12:03 levofloxacin Allergy Rash Verified 12/02/18 12:03 loracarbef Allergy Unknown Verified 12/02/18 12:03 Reaction Details rabeprazole Allergy Pain Verified 12/02/18 12:03 rofecoxib Allergy Rash Verified 12/02/18 12:03 Sulfa (Sulfonamide Allergy Unknown Verified 12/02/18 12:03 Antibiotics) Reaction Details PMH/Surg Hx/FS Hx/Imm Hx Previously Healthy: Yes Endocrine/Hematology History: Reports: Hx Anticoagulant Therapy, Hx Thyroid Disease - hypothyroidism Denies: Hx Diabetes Cardiovascular History: Reports: Hx Hypercholesterolemia, Hx Hypertension Denies: Hx Pacemaker/ICD Respiratory History: Denies: Hx Asthma, Hx Chronic Obstructive Pulmonary Disease (COPD) GI History: Reports: Hx Irritable Bowel - Hx Chronic Diarrhea Musculoskeletal History: Reports: Hx Arthritis, Hx Back Problems, Hx Orthopedic Injury, Other Musculoskeletal History - R Shoulder Repair Denies: Hx Rheumatoid Arthritis, Hx Osteoporosis Sensory History: Reports: Hx Contacts or Glasses Denies: Hx Hearing Aid Opthamlomology History: Reports: Hx Contacts or Glasses Neurological History: Reports: Hx Headaches, Other Neuro Impairments/Disorders - Parkinson's Disease Psychiatric History: Reports: Hx Anxiety Denies: Hx Panic Disorder - Cancer History Hx Chemotherapy: No Hx Radiation Therapy: No - Surgical History Surgery Procedure, Year, and Place: rt shoulder prosthesis-2008, RT AND LT BREAST BX, HYSTERECTOMY, [place], RT [place] ORTHOPLASTY SHOULDER, SHOULDER MANIPULATION,ORIF RT WRIST WITH PLATING Hx Anesthesia Reactions: No - Immunization History Hx Pertussis Vaccination: No Immunizations Up to Date: Yes Infectious Disease History: No Infectious Disease History: Denies: Traveled Outside the [place] in Last 30 Days - Family History Known Family History: Positive: Unknown, Hypertension - Social History Occupation: Unemployed Lives: With Family Alcohol Use: None Hx Substance Use: No Substance Use Type: Reports: None Hx Tobacco Use: No Smoking Status (MU): Never Smoked Tobacco Review of Systems Negative: Fever, Chills, Fatigue, Skin Diaphoresis Negative: Palpitations, Chest Pain Negative: Abdominal Pain, Vomiting, Diarrhea, Nausea Genitourinary: Negative Positive: no symptoms reported, see HPI Positive: Arthralgia - back pain and R hip pain Negative: Rash, Bruising Neurological: Negative All Other Systems Reviewed And Are Negative: Yes Physical Exam Triage Information Reviewed: Yes Vital Signs On Initial Exam: Initial Vitals Temp Pulse Resp BP Pulse Ox 97.7 F 83 19 202/108 100 12/02/18 11:58 12/02/18 11:58 12/02/18 11:58 12/02/18 11:58 12/02/18 11:58 Vital Signs Reviewed: Yes Appearance: Positive: Well-Appearing, Well-Nourished Skin: Positive: Warm, Skin Color Reflects Adequate Perfusion Head/Face: Positive: Normal Head/Face Inspection Eyes: Positive: EOMI, Conjunctiva Clear Neck: Positive: Supple, No Lymphadenopathy Respiratory/Lung Sounds: Positive: Clear to Auscultation, Breath Sounds Present Cardiovascular: Positive: RRR, Pulses are Symmetrical in both Upper and Lower Extremities Musculoskeletal: Positive: Pain @ - right hip and back pain Neurological: Positive: Alert, Oriented to Person Place, Time, Speech Normal Psychiatric: Positive: Affect/Mood Appropriate Diagnostics - Vital Signs Vital Signs Temp Pulse Resp BP Pulse Ox 12/02/18 16:22 209 71 12/02/18 16:02 194/81 12/02/18 15:56 191 61 12/02/18 15:36 188/85 12/02/18 15:32 186/105 12/02/18 15:19 186/78 12/02/18 14:32 84 185/113 100 12/02/18 14:02 85 174/113 100 12/02/18 14:01 84 99 12/02/18 13:32 191/96 12/02/18 13:02 86 166/98 92 12/02/18 13:01 81 97 12/02/18 12:03 83 192/91 100 12/02/18 12:02 84 202/108 100 12/02/18 12:00 84 100 12/02/18 11:58 97.7 F 83 19 202/108 100 - Laboratory Lab Results: Lab Results 12/02/18 12/02/18 12/02/18 Range/Units 16:47 17:20 17:20 INR (Anticoag Therapy) 0.96 (0.82-1.09) APTT 29.8 (26.0-36.3) seconds Sodium 140 (135-145) mmol/L Potassium 3.9 (3.5-5.0) mmol/L Chloride 106 (101-111) mmol/L Carbon Dioxide 26 (22-32) mmol/L Anion Gap 8 (2-11) mmol/L BUN 25 H (6-24) mg/dL Creatinine 0.97 H (0.51-0.95) mg/dL Est GFR ( Amer) 67.0 (>60) Est GFR (Non-Af Amer) 55.4 (>60) BUN/Creatinine Ratio 25.8 H (8-20) Glucose 122 H (70-100) mg/dL Lactic Acid (0.5-2.0) mmol/L Calcium 9.7 (8.6-10.3) mg/dL Total Bilirubin 0.80 (0.2-1.0) mg/dL AST 16 (13-39) U/L ALT 9 (7-52) U/L Alkaline Phosphatase 78 (34-104) U/L Troponin I 0.01 (<0.04) ng/mL C-Reactive Protein 1.29 (<8.01) mg/L Total Protein 7.2 (6.4-8.9) g/dL Albumin 4.2 (3.2-5.2) g/dL Globulin 3.0 (2-4) g/dL Albumin/Globulin Ratio 1.4 (1-3) Lipase 28 (11.0-82.0) U/L Urine Color Straw Urine Appearance Clear Urine pH 6.0 (5-9) Ur Specific [place] 1.008 L (1.010-1.030) Urine Protein Negative (Negative) Urine Ketones Negative (Negative) Urine Blood Negative (Negative) Urine Nitrate Negative (Negative) Urine Bilirubin Negative (Negative) Urine Urobilinogen Negative (Negative) Ur Leukocyte Esterase Negative (Negative) Urine Glucose Negative (Negative) Urine Ascorbic Acid * A (Negative) 12/02/18 Range/Units 17:20 INR (Anticoag Therapy) (0.82-1.09) APTT (26.0-36.3) seconds Sodium (135-145) mmol/L Potassium (3.5-5.0) mmol/L Chloride (101-111) mmol/L Carbon Dioxide (22-32) mmol/L Anion Gap (2-11) mmol/L BUN (6-24) mg/dL Creatinine (0.51-0.95) mg/dL Est GFR ( Amer) (>60) Est GFR (Non-Af Amer) (>60) BUN/Creatinine Ratio (8-20) Glucose (70-100) mg/dL Lactic Acid 0.6 (0.5-2.0) mmol/L Calcium (8.6-10.3) mg/dL Total Bilirubin (0.2-1.0) mg/dL AST (13-39) U/L ALT (7-52) U/L Alkaline Phosphatase (34-104) U/L Troponin I (<0.04) ng/mL C-Reactive Protein (<8.01) mg/L Total Protein (6.4-8.9) g/dL Albumin (3.2-5.2) g/dL Globulin (2-4) g/dL Albumin/Globulin Ratio (1-3) Lipase (11.0-82.0) U/L Urine Color Urine Appearance Urine pH (5-9) Ur Specific [place] (1.010-1.030) Urine Protein (Negative) Urine Ketones (Negative) Urine Blood (Negative) Urine Nitrate (Negative) Urine Bilirubin (Negative) Urine Urobilinogen (Negative) Ur Leukocyte Esterase (Negative) Urine Glucose (Negative) Urine Ascorbic Acid (Negative) Result Diagrams: 12/02/18 17:20 Lab Statement: Any lab studies that have been ordered have been reviewed, and results considered in the medical decision making process. Adult Trauma Course/Dx - Course Course Of Treatment: During this course of treatment, the patient is evaluated for fall. She states she lost her footing and the aide, who was nearby was able to help her to the floor. She denies any LOC or hitting her head. She states when she went down to the floor, she landed on her buttocks, injuring her low back and her right hip. Per EMS, she was able to stand and pivot although with discomfort. On arrival, she is complaining of back pain and right hip pain. X-rays of the right hip and back are obtained, with no acute findings. Attempted to stand patient, however patient refused stating her right hip and back was in too much pain. She was subsequently given 25 mg tramadol (he should refusing 50 mg tramadol or any other opioids at this time), however continued to states she would not attempt to stand. CT pelvis obtained : Acute/subacute compression fracture of L5 without osseous retropulsion. Osteopenia. 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 Discussed case with Jonnie at [facility]. Jonnie states she has 24/7 care at home and are able to help with assist. Discussed with patient and sensation states she would like to return home. At this point she is able to stand and pivot with one assist and walker. She will be discharged home with a wheelchair van and will follow-up with her PCP regarding a possible new compression fracture. She is given tramadol prescription. - Diagnoses Provider Diagnoses: Compression fracture, Parkinson disease, Fall Discharge - Sign-Out/Discharge Documenting (check all that apply): Patient Departure Patient Received Moderate/Deep Sedation with Procedure: No - Discharge Plan Condition: Stable Disposition: HOME Prescriptions: traMADol TAB* [Ultram*] 50 mg PO Q8H PRN #15 tab MDD 3 PRN Reason: Pain Patient Education Materials: Vertebral Compression Fracture (ED) Referrals: Edson Parra MD [Primary Care Provider] - Additional Instructions: Please follow-up with your PCP for any worsening or changing symptoms You have a vertebral compression fracture - this does not require surgery and will heal with time Please follow up with Dr. Parra this week or next Tylenol 650mg three times daily and use Tramadol as needed for any pain not well controlled with tyleol The area to the left breast does not appear to be infected and will likely dissipate spontaneously If this area begins to drain, you may use warm compresses to the area You will likely need extra care at home right now with assist to use the restroom - Billing Disposition and Condition Condition: STABLE Disposition: Home
== END | disposition home or self-care (01) ==
LOC: ED 11:52
DX: S32.050A Wedge compression fracture of fifth lumbar vertebra, initial encounter for closed fracture (principal); W01.0XXA Fall on same level from slipping, tripping and stumbling without subsequent striking against object, initial encounter; G20 Parkinson's disease; I10 Essential (primary) hypertension; E03.9 Hypothyroidism, unspecified; E78.00 Pure hypercholesterolemia, unspecified; K58.9 Irritable bowel syndrome, unspecified; M19.90 Unspecified osteoarthritis, unspecified site; M16.0 Bilateral primary osteoarthritis of hip; M47.898 Other spondylosis, sacral and sacrococcygeal region; M85.80 Other specified disorders of bone density and structure, unspecified site; F41.9 Anxiety disorder, unspecified; Z88.3 Allergy status to other anti-infective agents; Z88.8 Allergy status to other drugs, medicaments and biological substances; Z88.2 Allergy status to sulfonamides; Z91.041 Radiographic dye allergy status; Z79.01 Long term (current) use of anticoagulants; Z96.611 Presence of right artificial shoulder joint
CPT/HCPCS: 36415; 72110; 72192; 80053; 81003; 83605; 83690; 84484; 85610; 85730; 86140; 99283; A9270-GY

== ENCOUNTER 2019-05-29 18:50 | Emergency (ER) | payer MEDICARE, BC ==
--- NOTE | 2019-05-29 19:25 | ED ---
GI/ HPI - HPI Summary HPI Summary: Patient sent by primary care to ED for constipation. One small hard bowel movement yesterday otherwise no normal bowel movements in the past 5 days. Patient has history of constipation, takes Colace and MiraLAX daily. Usually takes milk of magnesia when constipation is persistent, with subsequent relief of symptoms. Patient caregiver states patient has had milk of magnesia every day for 3 days, suppositories, and enema with no stool produced. Patient denies abdominal pain, fever, cough, sore throat, CP, SOB, N/3/D, change in urine. Medical history is HTN, Parkinson's, hypothyroid, constipation. Abdominal surgical history is cholecystectomy. - History of Current Complaint Chief Complaint: EDConstipation Time Seen by Provider: 05/29/19 19:00 Stated Complaint: POSS BOWEL OBSTRUCTION PER EMS Hx Obtained From: Patient Onset/Duration: Started Days Ago Timing: Constant Current Severity: None Pain Intensity: 0 Associated Signs and Symptoms: Positive: Constipation Aggravating Factor(s): Nothing Alleviating Factor(s): Nothing - Additional Pertinent History Primary Care Physician: [facility] - Allergy/Home Medications Allergies/Adverse Reactions: Allergies Allergy/AdvReac Type Severity Reaction Status Date / Time ciprofloxacin Allergy Rash Verified 05/29/19 18:58 doxycycline Allergy Rash Verified 05/29/19 18:58 hydrocodone Allergy Rash Verified 05/29/19 18:58 Iodinated Contrast Media Allergy Rash Verified 05/29/19 18:58 [Iodinated Contrast- Oral and IV Dye] lansoprazole Allergy Rash Verified 05/29/19 18:58 levofloxacin Allergy Rash Verified 05/29/19 18:58 loracarbef Allergy Unknown Verified 05/29/19 18:58 Reaction Details rabeprazole Allergy Pain Verified 05/29/19 18:58 rofecoxib Allergy Rash Verified 05/29/19 18:58 Sulfa (Sulfonamide Allergy Unknown Verified 05/29/19 18:58 Antibiotics) Reaction Details Home Medications: Home Medications Cyanocobalamin TAB* [Vitamin B12 TAB*] 1,000 mcg PO DAILY 05/29/19 [History Confirmed 05/29/19] Nystatin TOP POWDER* 1 applic TOPICAL BID 05/29/19 [History Confirmed 05/29/19] Ranitidine TAB (NF) [Zantac TAB (NF)] 150 mg PO BID 05/29/19 [History Confirmed 05/29/19] PMH/Surg Hx/FS Hx/Imm Hx Endocrine/Hematology History: Reports: Hx Anticoagulant Therapy, Hx Thyroid Disease - hypothyroidism Denies: Hx Diabetes Cardiovascular History: Reports: Hx Hypercholesterolemia, Hx Hypertension Denies: Hx Pacemaker/ICD Respiratory History: Denies: Hx Asthma, Hx Chronic Obstructive Pulmonary Disease (COPD) GI History: Reports: Hx Irritable Bowel - Hx Chronic Diarrhea Musculoskeletal History: Reports: Hx Arthritis, Hx Back Problems, Hx Orthopedic Injury, Other Musculoskeletal History - R Shoulder Repair Denies: Hx Rheumatoid Arthritis, Hx Osteoporosis Sensory History: Reports: Hx Contacts or Glasses Denies: Hx Hearing Aid Opthamlomology History: Reports: Hx Contacts or Glasses Neurological History: Reports: Hx Headaches, Other Neuro Impairments/Disorders - Parkinson's Disease Psychiatric History: Reports: Hx Anxiety Denies: Hx Panic Disorder - Cancer History Hx Chemotherapy: No Hx Radiation Therapy: No - Surgical History Surgery Procedure, Year, and Place: rt shoulder prosthesis-2008, RT AND LT BREAST BX, HYSTERECTOMY, [place], RT [place] ORTHOPLASTY SHOULDER, SHOULDER MANIPULATION,ORIF RT WRIST WITH PLATING Hx Anesthesia Reactions: No Infectious Disease History: No Infectious Disease History: Denies: Traveled Outside the [place] in Last 30 Days - Family History Known Family History: Positive: Unknown, Hypertension - Social History Alcohol Use: None Hx Substance Use: No Substance Use Type: Reports: None Hx Tobacco Use: No Smoking Status (MU): Never Smoked Tobacco Review of Systems Constitutional: Negative Eyes: Negative ENT: Negative Cardiovascular: Negative Respiratory: Negative Positive: Other Genitourinary: Negative Musculoskeletal: Negative Skin: Negative Neurological: Negative Psychological: Normal All Other Systems Reviewed And Are Negative: Yes Physical Exam - Summary Physical Exam Summary: Abdomen soft nontender. Triage Information Reviewed: Yes Vital Signs On Initial Exam: Initial Vitals Temp Pulse Resp BP Pulse Ox 98.1 F 81 18 172/89 99 05/29/19 18:53 05/29/19 18:53 05/29/19 18:53 05/29/19 18:53 05/29/19 18:53 Vital Signs Reviewed: Yes Appearance: Positive: Well-Appearing Skin: Positive: Warm Head/Face: Positive: Normal Head/Face Inspection Eyes: Positive: Normal Neck: Positive: Supple Respiratory/Lung Sounds: Positive: Clear to Auscultation Cardiovascular: Positive: Normal Abdomen Description: Positive: Nontender Musculoskeletal: Positive: Normal Neurological: Positive: Normal Psychiatric: Positive: Normal AVPU Assessment: Alert - [place] Coma Scale Best Eye Response: 4 - Spontaneous Best Motor Response: 6 - Obeys Commands Best Verbal Response: 5 - Oriented Coma Scale Total: 15 Procedures - Sedation Patient Received Moderate/Deep Sedation with Procedure: No Diagnostics - Vital Signs Vital Signs Temp Pulse Resp BP Pulse Ox 05/29/19 18:53 98.1 F 81 18 172/89 99 - Laboratory Result Diagrams: 05/29/19 19:23 05/29/19 19:23 Lab Statement: Any lab studies that have been ordered have been reviewed, and results considered in the medical decision making process. GIGU Course/Dx - Course Course Of Treatment: Patient sent by primary care to ED for constipation. One small hard bowel movement yesterday otherwise normal bowel movements in the past 5 days. Patient has history of constipation, takes Colace and MiraLAX daily. Usually takes milk of magnesia when constipation is persistent, with subsequent relief of symptoms. Patient admitted states patient has had milk of magnesia every day for 3 days, suppositories, and enema with no stool produced. Patient denies abdominal pain, fever, cough, sore throat, CP, SOB, N/3/D, change in urine. Medical history is HTN, Parkinson's, hypothyroid, constipation. Abdominal surgical history is cholecystectomy. Vital signs within normal limits. Labs unremarkable. KUB positive for significant stool burden without air-fluid levels. Also reviewed by attending Dr. Burger. Soap suds enema administered with no stool production. Patient refuses to sit on commode, sitting on bed husain in bed in an awkward position. Will discharge patient with Rx for magnesium citrate. Patient has home health hospice care consultant who can assist her. - Diagnoses Provider Diagnoses: Constipation Discharge ED - Sign-Out/Discharge Documenting (check all that apply): Patient Departure - Discharge Plan Condition: Stable Disposition: HOME Prescriptions: Magnesium CITRATE* [Citrate of Magnesia*] 300 ml PO SEE INSTRUCTIONS PRN #1 [id number] PRN Reason: Constipation Patient Education Materials: Constipation (ED) Referrals: Edson Parra MD [Primary Care Provider] - Additional Instructions: Drink 150 ML's of magnesium citrate for constipation. if this is unsuccessful within 3-4 hours, drink remaining 150 ML's. Follow-up with primary care. Return to the ED for any new or worsening symptoms. - Billing Disposition and Condition Condition: STABLE Disposition: Home - Attestation Statements Provider Attestation: I was available for consult. This patient was seen by the [facility]. The patient was not presented to, seen by, or examined by me. Marek Burger MD
[2019-05-29 19:30] LABS: ABS Basophils 0.1 10^3/ul (0-0.2); ABS Eosinophils 0.2 10^3/ul (0-0.6); ABS Lymphocytes 1.2 10^3/ul (1.0-4.8); ABS Monocytes 0.5 10^3/ul (0-0.8); ABS Neutrophils 4.2 10^3/ul (1.5-7.7); Eosinophil % 2.9 %; Hematocrit 43 % (35-47); Hemoglobin 14.7 g/dL (12.0-16.0); Mean Corpuscular HGB Conc 34 g/dL (31-36); Mean Corpuscular Hemoglobin 32 pg (27-31); Mean Corpuscular Volume 95 fL (80-97); Mean Platelet Volume 7.9 fL (7.4-10.4); Platelet Count 170 10^3/uL (150-450); Red Blood Count 4.53 10^6 /uL (3.70-4.87); Red Cell Distribution Width 13 % (10-15); White Blood Count 6.2 10^3/uL (3.5-10.8)
[2019-05-29 19:47] LABS: Albumin 3.9 g/dL (3.2-5.2); Albumin/Globulin Ratio 1.3 (1-3); BUN/Creatinine Ratio 23.2 (8-20); C Reactive Protein 1.22 mg/L (<8.01); Calcium 9.4 mg/dL (8.6-10.3); EGFR African American 65.3 (>60); Potassium 4.6 mmol/L (3.5-5.0); Total Bilirubin 0.7 mg/dL (0.2-1.0); Total Protein 6.9 g/dL (6.4-8.9)
[2019-05-29 23:38] VITALS: BP 151/95
== END 2019-05-29 23:26 | disposition home or self-care (01) ==
LOC: ED 18:50
DX: K59.00 Constipation, unspecified (principal); E03.9 Hypothyroidism, unspecified; E78.00 Pure hypercholesterolemia, unspecified; G20 Parkinson's disease; I10 Essential (primary) hypertension; F41.9 Anxiety disorder, unspecified; Z90.710 Acquired absence of both cervix and uterus; Z90.49 Acquired absence of other specified parts of digestive tract; Z88.5 Allergy status to narcotic agent; Z88.2 Allergy status to sulfonamides; Z88.8 Allergy status to other drugs, medicaments and biological substances; Z88.1 Allergy status to other antibiotic agents; Z91.041 Radiographic dye allergy status; Z79.899 Other long term (current) drug therapy
CPT/HCPCS: 36415; 74018; 80053; 83690; 85025; 86140; 99283